=== PATIENT | male | born 1960 | race Caucasian/White ===

== ENCOUNTER → 2020-09-28 15:28 | Outpatient (BNVA) | payer MEDICARE, MEDICAID, SELFPAY | PROVIDERS: PCP Student in an Organized Health Care Education/Training Program; Visit Provider Nurse Practitioner Family | DX: M47.27 Other spondylosis with radiculopathy, lumbosacral region (principal); M54.2 Cervicalgia; M79.18 Myalgia, other site | CPT/HCPCS: 99202 ==

== ENCOUNTER → 2020-10-13 09:44 | Outpatient (BNVA) | payer MEDICARE, MEDICAID, SELFPAY | PROVIDERS: PCP Student in an Organized Health Care Education/Training Program; Visit Provider Nurse Practitioner Family | DX: M47.27 Other spondylosis with radiculopathy, lumbosacral region (principal); M54.2 Cervicalgia; M79.18 Myalgia, other site | CPT/HCPCS: 99212 ==

== ENCOUNTER → 2020-10-27 08:38 | Outpatient (BNVA) | payer MEDICARE, MEDICAID, SELFPAY | PROVIDERS: PCP Student in an Organized Health Care Education/Training Program; Visit Provider Nurse Practitioner Family | DX: M47.27 Other spondylosis with radiculopathy, lumbosacral region (principal); M54.2 Cervicalgia; M79.18 Myalgia, other site | CPT/HCPCS: 99212 ==

== ENCOUNTER → 2020-11-10 14:49 | Outpatient (BNVA) | payer MEDICARE, MEDICAID, SELFPAY | PROVIDERS: PCP Student in an Organized Health Care Education/Training Program; Visit Provider Nurse Practitioner Family | DX: M47.27 Other spondylosis with radiculopathy, lumbosacral region (principal); M54.2 Cervicalgia; M79.18 Myalgia, other site | CPT/HCPCS: 99212 ==

== ENCOUNTER → 2020-12-10 08:58 | Outpatient (BNVA) | payer MEDICARE, MEDICAID, SELFPAY | PROVIDERS: PCP Student in an Organized Health Care Education/Training Program; Visit Provider Nurse Practitioner Family | DX: M47.27 Other spondylosis with radiculopathy, lumbosacral region (principal); M54.2 Cervicalgia; M79.18 Myalgia, other site | CPT/HCPCS: 99212 ==

== ENCOUNTER → 2021-01-07 09:04 | Outpatient (BNVA) | payer MEDICARE, MEDICAID, SELFPAY | PROVIDERS: PCP Student in an Organized Health Care Education/Training Program; Visit Provider Nurse Practitioner Family | DX: M47.27 Other spondylosis with radiculopathy, lumbosacral region (principal); M54.2 Cervicalgia; M79.18 Myalgia, other site | CPT/HCPCS: 99212 ==

== ENCOUNTER → 2021-02-04 08:46 | Outpatient (BNVA) | payer MEDICARE, MEDICAID, SELFPAY | PROVIDERS: PCP Student in an Organized Health Care Education/Training Program; Visit Provider Nurse Practitioner Family | DX: M47.27 Other spondylosis with radiculopathy, lumbosacral region (principal); M54.2 Cervicalgia; M79.18 Myalgia, other site | CPT/HCPCS: 99212 ==

== ENCOUNTER → 2021-03-11 08:18 | Outpatient (BNVA) | payer MEDICARE, MEDICAID, SELFPAY | PROVIDERS: PCP Student in an Organized Health Care Education/Training Program; Visit Provider Nurse Practitioner Family | DX: M47.27 Other spondylosis with radiculopathy, lumbosacral region (principal); M54.2 Cervicalgia; M79.18 Myalgia, other site | CPT/HCPCS: 99212 ==

== ENCOUNTER → 2021-04-15 08:04 | Outpatient (BNVA) | payer MEDICARE, MEDICAID, SELFPAY | PROVIDERS: Visit Provider Nurse Practitioner Family | DX: Z51.81 Encounter for therapeutic drug level monitoring (principal); M47.27 Other spondylosis with radiculopathy, lumbosacral region; M54.2 Cervicalgia; M79.18 Myalgia, other site | CPT/HCPCS: 99212 ==

== ENCOUNTER → 2021-05-13 08:06 | Outpatient (BNVA) | payer MEDICARE, MEDICAID, SELFPAY | PROVIDERS: Visit Provider Nurse Practitioner Family | DX: Z51.81 Encounter for therapeutic drug level monitoring (principal); M54.2 Cervicalgia; M79.18 Myalgia, other site | CPT/HCPCS: 99212 ==

== ENCOUNTER → 2021-06-10 09:09 | Outpatient (BNVA) | payer MEDICARE, MEDICAID, SELFPAY | PROVIDERS: Visit Provider Nurse Practitioner Family | DX: Z51.81 Encounter for therapeutic drug level monitoring (principal); M47.27 Other spondylosis with radiculopathy, lumbosacral region; M54.2 Cervicalgia; M79.18 Myalgia, other site | CPT/HCPCS: 99212 ==

== ENCOUNTER → 2021-07-08 15:40 | Outpatient (BNVA) | payer MEDICARE, MEDICAID, SELFPAY | PROVIDERS: Visit Provider Nurse Practitioner Family | DX: Z51.81 Encounter for therapeutic drug level monitoring (principal); M47.27 Other spondylosis with radiculopathy, lumbosacral region; M54.2 Cervicalgia; M79.18 Myalgia, other site | CPT/HCPCS: 99212 ==

== ENCOUNTER 2021-07-18 09:53 | Outpatient (REF) | payer MEDICARE, MEDICAID, SELFPAY ==
[2021-07-18 10:47] LABS: COVID-19 Test Positive (Negative)
== END 2021-07-18 09:54 | disposition home or self-care (01) ==
LOC: HO.LAB 09:53
PROVIDERS: Visit Provider Internal Medicine
DX: Z20.822 Contact with and (suspected) exposure to COVID-19 (principal)
CPT/HCPCS: 87635; C9803

== ENCOUNTER → 2021-08-05 08:29 | Outpatient (BNVA) | payer MEDICARE, MEDICAID, SELFPAY | PROVIDERS: Visit Provider Nurse Practitioner Family | DX: M47.27 Other spondylosis with radiculopathy, lumbosacral region (principal); M54.2 Cervicalgia; M79.18 Myalgia, other site; Z79.891 Long term (current) use of opiate analgesic | CPT/HCPCS: 99212 ==

== ENCOUNTER → 2021-09-09 08:35 | Outpatient (BNVA) | payer MEDICARE, MEDICAID, SELFPAY | PROVIDERS: PCP Student in an Organized Health Care Education/Training Program; Visit Provider Nurse Practitioner Family | DX: Z51.81 Encounter for therapeutic drug level monitoring (principal); F11.20 Opioid dependence, uncomplicated; M47.27 Other spondylosis with radiculopathy, lumbosacral region; M79.18 Myalgia, other site; M54.2 Cervicalgia | CPT/HCPCS: 99212 ==

== ENCOUNTER → 2021-10-07 09:01 | Outpatient (BNVA) | payer MEDICARE, MEDICAID, SELFPAY | PROVIDERS: PCP Student in an Organized Health Care Education/Training Program; Visit Provider Nurse Practitioner Family | DX: M47.27 Other spondylosis with radiculopathy, lumbosacral region (principal); M54.2 Cervicalgia; M79.18 Myalgia, other site; Z79.899 Other long term (current) drug therapy | CPT/HCPCS: 99212 ==

== ENCOUNTER → 2021-11-11 09:34 | Outpatient (BNVA) | payer MEDICARE, MEDICAID, SELFPAY | PROVIDERS: PCP Student in an Organized Health Care Education/Training Program; Visit Provider Nurse Practitioner Family | DX: Z13.89 Encounter for screening for other disorder (principal) ==

== ENCOUNTER → 2021-12-09 08:32 | Outpatient (BNVA) | payer MEDICARE, MEDICAID, SELFPAY | PROVIDERS: PCP Student in an Organized Health Care Education/Training Program; Visit Provider Nurse Practitioner Family | DX: M47.27 Other spondylosis with radiculopathy, lumbosacral region (principal); M54.2 Cervicalgia; M79.18 Myalgia, other site; Z79.891 Long term (current) use of opiate analgesic | CPT/HCPCS: 99212 ==

== ENCOUNTER → 2022-01-13 09:30 | Outpatient (BNVA) | payer MEDICARE, MEDICAID, SELFPAY | PROVIDERS: PCP Student in an Organized Health Care Education/Training Program; Visit Provider Nurse Practitioner Family | DX: M47.27 Other spondylosis with radiculopathy, lumbosacral region (principal); M54.2 Cervicalgia; M79.18 Myalgia, other site; M79.642 Pain in left hand; Z79.891 Long term (current) use of opiate analgesic | CPT/HCPCS: 99212 ==

== ENCOUNTER → 2022-02-13 08:33 | Outpatient (BNVA) | payer MEDICARE, MEDICAID, SELFPAY | PROVIDERS: PCP Student in an Organized Health Care Education/Training Program; Visit Provider Nurse Practitioner Family | DX: Z79.899 Other long term (current) drug therapy (principal); Z79.891 Long term (current) use of opiate analgesic | CPT/HCPCS: 99211 ==

== ENCOUNTER → 2022-03-14 10:06 | Outpatient (BNVA) | payer MEDICARE, MEDICAID, SELFPAY | PROVIDERS: PCP Student in an Organized Health Care Education/Training Program; Visit Provider Nurse Practitioner Family | DX: M47.27 Other spondylosis with radiculopathy, lumbosacral region (principal); M54.2 Cervicalgia; M79.18 Myalgia, other site; Z79.891 Long term (current) use of opiate analgesic | CPT/HCPCS: 99212 ==

== ENCOUNTER → 2022-04-11 08:29 | Outpatient (BNVA) | payer MEDICARE, MEDICAID, SELFPAY | PROVIDERS: PCP Student in an Organized Health Care Education/Training Program; Visit Provider Nurse Practitioner Family | DX: F11.20 Opioid dependence, uncomplicated (principal) | CPT/HCPCS: 99211 ==

== ENCOUNTER → 2022-05-15 08:24 | Outpatient (BNVA) | payer MEDICARE, MEDICAID, SELFPAY | PROVIDERS: PCP Student in an Organized Health Care Education/Training Program; Visit Provider Nurse Practitioner Family | DX: Z51.81 Encounter for therapeutic drug level monitoring (principal); F11.20 Opioid dependence, uncomplicated; M47.27 Other spondylosis with radiculopathy, lumbosacral region; M54.2 Cervicalgia; M25.562 Pain in left knee; M79.642 Pain in left hand; M79.18 Myalgia, other site | CPT/HCPCS: 99212 ==

== ENCOUNTER → 2022-06-12 09:06 | Outpatient (BNVA) | payer MEDICARE, MEDICAID, SELFPAY | PROVIDERS: PCP Student in an Organized Health Care Education/Training Program; Visit Provider Nurse Practitioner Family | DX: Z79.891 Long term (current) use of opiate analgesic (principal) | CPT/HCPCS: 99211 ==

== ENCOUNTER → 2022-07-18 09:00 | Outpatient (BNVA) | payer MEDICARE, MEDICAID, SELFPAY | PROVIDERS: PCP Student in an Organized Health Care Education/Training Program; Visit Provider Nurse Practitioner Family | DX: M25.562 Pain in left knee (principal); M47.27 Other spondylosis with radiculopathy, lumbosacral region; M54.2 Cervicalgia; Z79.891 Long term (current) use of opiate analgesic | CPT/HCPCS: 99212 ==

== ENCOUNTER → 2022-08-15 09:32 | Outpatient (BNVA) | payer MEDICARE, MEDICAID, SELFPAY | PROVIDERS: PCP Student in an Organized Health Care Education/Training Program; Visit Provider Nurse Practitioner Family | DX: Z51.81 Encounter for therapeutic drug level monitoring (principal); M54.2 Cervicalgia; M79.18 Myalgia, other site; Z79.891 Long term (current) use of opiate analgesic | CPT/HCPCS: 99212 ==

== ENCOUNTER → 2022-09-12 09:25 | Outpatient (BNVA) | payer MEDICARE, MEDICAID, SELFPAY | PROVIDERS: PCP Student in an Organized Health Care Education/Training Program; Visit Provider Nurse Practitioner Family | DX: M47.816 Spondylosis without myelopathy or radiculopathy, lumbar region (principal); M79.18 Myalgia, other site; M54.2 Cervicalgia; Z79.891 Long term (current) use of opiate analgesic | CPT/HCPCS: 99212 ==

== ENCOUNTER → 2022-10-10 08:53 | Outpatient (BNVA) | payer MEDICARE, MEDICAID, SELFPAY | PROVIDERS: PCP Student in an Organized Health Care Education/Training Program; Visit Provider Nurse Practitioner Family | DX: Z51.81 Encounter for therapeutic drug level monitoring (principal); M54.2 Cervicalgia; M79.18 Myalgia, other site; M47.816 Spondylosis without myelopathy or radiculopathy, lumbar region; Z79.891 Long term (current) use of opiate analgesic | CPT/HCPCS: 99212 ==

== ENCOUNTER → 2022-11-07 09:15 | Outpatient (BNVA) | payer MEDICARE, MEDICAID, SELFPAY | PROVIDERS: PCP Student in an Organized Health Care Education/Training Program; Visit Provider Nurse Practitioner Family | DX: M47.816 Spondylosis without myelopathy or radiculopathy, lumbar region (principal); M54.2 Cervicalgia; M79.18 Myalgia, other site; Z79.891 Long term (current) use of opiate analgesic | CPT/HCPCS: 99212 ==

== ENCOUNTER → 2022-12-12 09:03 | Outpatient (BNVA) | payer MEDICARE, MEDICAID, SELFPAY | PROVIDERS: PCP Internal Medicine; Visit Provider Nurse Practitioner Family | DX: Z51.81 Encounter for therapeutic drug level monitoring (principal); G47.00 Insomnia, unspecified; M51.36 Other intervertebral disc degeneration, lumbar region; M47.816 Spondylosis without myelopathy or radiculopathy, lumbar region; F41.8 Other specified anxiety disorders; Z79.891 Long term (current) use of opiate analgesic | CPT/HCPCS: 99212 ==

== ENCOUNTER 2022-12-27 11:00 | Emergency (ER) | payer MEDICARE, MEDICAID, SELFPAY ==
--- NOTE | ~2022-12-27 | XR_ITS ---
EXAMINATION: XR ANKLE LEFT XR FOOT LEFT CLINICAL INFORMATION: Pain and swelling after fall. COMPARISON: None TECHNIQUE: Left ankle, 2 views (AP and oblique views) Left foot, 3 views FINDINGS: Left ankle: Acute, oblique fracture of the distal fibular metaphysis with approximately 0.3 cm lateral displacement of the distal fibular fragment and overlying soft tissue swelling. The talus is well-positioned within the mortise. The tibiotalar joint space is maintained. The medial and posterior malleoli are intact. Left foot: Bones have normal alignment throughout the foot and joint spaces are maintained. No fractures within the foot. There are enthesophytes at the posterior and plantar surfaces of the calcaneus. XR/XR foot LT min 3V IMPRESSION: Acute, mildly displaced fracture (Prado B injury) of the distal fibula with overlying soft tissue swelling.
--- NOTE | ~2022-12-27 | XR_ITS ---
EXAMINATION: XR ANKLE LEFT XR FOOT LEFT CLINICAL INFORMATION: Pain and swelling after fall. COMPARISON: None TECHNIQUE: Left ankle, 2 views (AP and oblique views) Left foot, 3 views FINDINGS: Left ankle: Acute, oblique fracture of the distal fibular metaphysis with approximately 0.3 cm lateral displacement of the distal fibular fragment and overlying soft tissue swelling. The talus is well-positioned within the mortise. The tibiotalar joint space is maintained. The medial and posterior malleoli are intact. Left foot: Bones have normal alignment throughout the foot and joint spaces are maintained. No fractures within the foot. There are enthesophytes at the posterior and plantar surfaces of the calcaneus. XR/XR ankle LT min 3V IMPRESSION: Acute, mildly displaced fracture (Prado B injury) of the distal fibula with overlying soft tissue swelling.
[2022-12-27 11:09] VITALS: BP 151/84; PULSE 85; RESP 16; TEMP 36.4; O2SAT 97; BMI 30.6
--- NOTE | 2022-12-27 11:11 | ED_ITS ---
HPI - Extremity Injury (Lower) General Chief Complaint: Extremity Injury, Lower Stated Complaint: left leg broken? Time Seen by Provider: 12/27/22 11:26 Related Data Home Medications Medication Instructions Recorded Confirmed loratadine 10 mg tablet 10 mg PO DAILY 09/28/20 10/10/22 tizanidine 4 mg tablet 4 mg PO Q6-8H PRN muscle spasm 09/28/20 10/10/22 trazodone 50 mg tablet 50 mg PO BEDTIME 01/07/21 10/10/22 fluticasone propionate 50 spray intranasal 02/13/22 10/10/22 mcg/actuation nasal spray,suspension alfuzosin 10 mg tablet,extended 10 mg PO DAILY 04/11/22 10/10/22 release 24 hr finasteride 5 mg tablet 5 mg PO BEDTIME 04/11/22 10/10/22 amlodipine 2.5 mg tablet 2.5 mg PO DAILY 11/07/22 doxycycline hyclate 100 mg tablet 100 mg PO BID 11/07/22 sertraline 50 mg tablet 50 mg PO DAILY 11/07/22 Previous Rx's Medication Instructions Recorded naloxone 4 mg/actuation nasal 4 mg intranasal Q3M PRN opioid 10/07/21 spray (Narcan) overdose #2 ea celecoxib 100 mg capsule 100 mg PO BID PRN for pain 30 days 09/25/22 #60 caps oxycodone 5 mg tablet 5 mg PO TID PRN pain, severe 30 12/12/22 days #90 tabs oxycodone 5 mg tablet 5 mg PO BID PRN pain #8 tabs 12/27/22 Allergies Allergy/AdvReac Type Severity Reaction Status Date / Time No Known Allergies Allergy Verified 12/12/22 09:24 [facility] Past Medical History Medical History (Updated 12/27/22 @ 11:31 by EMILI Andres) Bilateral knee pain Cervical spondylosis Chronic right hip pain Degeneration of intervertebral disc of lumbar region Depression with anxiety Insomnia Lumbar spinal stenosis Seasonal allergies Surgical History (Updated 12/12/22 @ 09:32 by SARA Whittington) H/O colonoscopy H/O right inguinal hernia repair Social History Social History Advance Directives: No Physical Exam Vital Signs: Vital Signs: Last Vital Signs Temp 97.5 F 12/27/22 11:09 Pulse 85 12/27/22 11:09 Resp 16 12/27/22 11:09 BP 151/84 H 12/27/22 11:09 Pulse Ox 97 12/27/22 11:09 O2 Del Method Room Air 12/27/22 11:09 BMI result Body Mass Index 30.6 Course Course Course Narrative: RME: 62yo M w/PMHx depression, insomnia, c/o L ankle pain and swelling s/p dog running into him 30mins [employer] and knocking him over. denies head trauma or LOC +L rosina w/lateral mall swelling and ttp. NV intact X-rays ordered Full HPI, ROS and PE to be performed by primary ED provider. Discharge Plan Discharge Clinical Impression: Fibula fracture Patient Disposition: Home, Self-Care Instructions: Leg Fracture (ED), Crutch Instructions (ED), R.I.C.E. Treatment (ED), ORIF (DC) Additional Instructions: Take your medications as prescribed. If you were prescribed antibiotics today, it is important that you take your medication to their entirety, do not skip any doses, do not finish them early. Follow-up with your primary care provider this week. Return to the emergency department with new or worsening symptoms. Such as fevers, chills, chest pain, shortness of breath, nausea, vomiting, dizziness, headache, vision changes, lethargy In case of emergency call 911 A narcotic has been sent to your pharmacy please take this as prescribed. Do not take more than the prescribed dose. Narcotic medications can cause addiction. Please do not mix them with alcohol. Do not take them while driving or operating machinery. Do not take them with any other narcotics. Do not share them with friends or family. They can cause constipation. Take them only for severe pain. Prescriptions: New oxycodone 5 mg tablet 5 mg PO BID PRN (Reason: pain) Qty: 8 0RF Rx Instructions: Partial Fill upon patient request. No Action celecoxib 100 mg capsule 100 mg PO BID PRN (Reason: for pain) 30 Days Qty: 60 0RF loratadine 10 mg tablet 10 mg PO DAILY tizanidine 4 mg tablet 4 mg PO Q6-8H PRN (Reason: muscle spasm) trazodone 50 mg tablet 50 mg PO BEDTIME naloxone [Narcan] 4 mg/actuation spray,non-aerosol 4 mg intranasal Q3M PRN (Reason: opioid overdose) Qty: 2 0RF Rx Instructions: spray 1 dose into ONE nostril; alternate nostrils w each dose until help arrives fluticasone propionate 50 mcg/actuation spray,suspension intranasal finasteride 5 mg tablet 5 mg PO BEDTIME alfuzosin 10 mg tablet extended release 24 hr 10 mg PO DAILY doxycycline hyclate 100 mg tablet 100 mg PO BID amlodipine 2.5 mg tablet 2.5 mg PO DAILY sertraline 50 mg tablet 50 mg PO DAILY oxycodone 5 mg tablet 5 mg PO TID PRN (Reason: pain, severe) 30 Days Qty: 90 0RF Rx Instructions: Partial Fill upon patient request. Referrals: [facility] [place] Orth[facility] Surgeons [Provider Group] - 3 days Rhea Christy MD [Primary Care Provider] - 2 days
--- NOTE | 2022-12-27 11:31 | ED.LOWEXIN ---
HPI - Extremity Injury (Lower) General Chief Complaint: Extremity Injury, Lower Stated Complaint: left leg broken? Time Seen by Provider: 12/27/22 11:26 Source: patient Mode of arrival: ambulatory Limitations: no limitations History of Present Illness HPI Narrative: 62-year-old male presents with lateral left ankle pain that happened just prior to arrival, patient reports his dog got the zoomies and head butted him right in the ankle this caused him to fall, when patient fell he did not hit his head or lose consciousness. Patient not on blood thinners. He reports that his left ankle pain is worse with movement better at rest. He reports the area immediately became swollen. He reports when the dog head-butted him he heard a crack. He is concerned he may be fractured. No previous issues of left ankle. Denies numbness, tingling, fevers, chills, chest pain, shortness breath, nausea, vomiting, headache, vision changes, dizziness and weakness. Related Data Home Medications Medication Instructions Recorded Confirmed loratadine 10 mg tablet 10 mg PO DAILY 09/28/20 10/10/22 tizanidine 4 mg tablet 4 mg PO Q6-8H PRN muscle spasm 09/28/20 10/10/22 trazodone 50 mg tablet 50 mg PO BEDTIME 01/07/21 10/10/22 fluticasone propionate 50 spray intranasal 02/13/22 10/10/22 mcg/actuation nasal spray,suspension alfuzosin 10 mg tablet,extended 10 mg PO DAILY 04/11/22 10/10/22 release 24 hr finasteride 5 mg tablet 5 mg PO BEDTIME 04/11/22 10/10/22 amlodipine 2.5 mg tablet 2.5 mg PO DAILY 11/07/22 doxycycline hyclate 100 mg tablet 100 mg PO BID 11/07/22 sertraline 50 mg tablet 50 mg PO DAILY 11/07/22 Previous Rx's Medication Instructions Recorded naloxone 4 mg/actuation nasal 4 mg intranasal Q3M PRN opioid 10/07/21 spray (Narcan) overdose #2 ea celecoxib 100 mg capsule 100 mg PO BID PRN for pain 30 days 09/25/22 #60 caps oxycodone 5 mg tablet 5 mg PO TID PRN pain, severe 30 12/12/22 days #90 tabs oxycodone 5 mg tablet 5 mg PO BID PRN pain #8 tabs 12/27/22 Allergies Allergy/AdvReac Type Severity Reaction Status Date / Time No Known Allergies Allergy Verified 12/12/22 09:24 Review of Systems Review of Systems: Constitutional : No Weight loss, No Fever, No Chills, No Fatigue, No Malaise ENT/Mouth : No sore throat, No Rhinorrhea Eyes: No Eye Pain, No Swelling, No Redness Cardiovascular : No Chest Pain, No SOB, No Dyspnea on Exertion, No Orthopnea, No Edema, No Palpitations Respiratory : No Cough, No Sputum, No Wheezing Gastrointestinal : No Nausea, No Vomiting, No Diarrhea, No Constipation, No abdominal Pain, No Hematochezia, No Melena Genitourinary : No Dysuria, No Urinary Frequency, No Hematuria, Musculoskeletal : + joint pain, No Myalgias, + Joint Swelling Skin : No Skin Lesions, No rash Neuro : No Weakness, No Numbness, No Dizziness, No Headache Psych : No Anxiety/Panic, No Depression All other systems reviewed and are negative Yes all other systems are reviewed and are negative [facility] Past Medical History Attestation statement: The following information was validated with the patient. Source: old records reviewed and nursing notes reviewed Medical History (Updated 12/27/22 @ 11:31 by EMILI Andres) Bilateral knee pain Cervical spondylosis Chronic right hip pain Degeneration of intervertebral disc of lumbar region Depression with anxiety Insomnia Lumbar spinal stenosis Seasonal allergies Surgical History (Updated 12/12/22 @ 09:32 by SARA Whittington) H/O colonoscopy H/O right inguinal hernia repair Social History Social History Advance Directives: No Physical Exam Vital Signs: Vital Signs: Last Vital Signs Temp 97.5 F 12/27/22 11:09 Pulse 85 12/27/22 11:09 Resp 16 12/27/22 11:09 BP 151/84 H 12/27/22 11:09 Pulse Ox 97 12/27/22 11:09 O2 Del Method Room Air 12/27/22 11:09 BMI result Body Mass Index 30.6 vss Appearance: Alert.? Oriented X3.? No acute distress.? Head: Normocephalic, atraumatic, no step-offs or deformities Eyes: Pupils equal, round and reactive to light.? Neck: Normal inspection.? Neck supple.? CVS: Normal heart rate and rhythm.? Pulses normal.? Respiratory: No respiratory distress.? Breath sounds normal.? Abdomen: Soft and nontender.? Skin: Skin warm and dry.? Normal skin color.? Normal skin turgor.? Extremities: No lower extremity edema.? No calf ttp. 5/5 strength to bilateral upper and lower extremities + Pain with ROM to L ankle and TTP overlying lateral Malleolus With significant edema over the left lateral malleolus. 2+ dorsalis pedis, anterior tibialis, posterior tibialis pulses equal bilateral. No footdrop. Pain with weight-bearing on the left lower extremity. Normal right lower extremity. Normal sensation to bilateral lower extremities distally. Normal capillary refill less than 2 seconds to bilateral lower extremity toes. Patient with full range of motion to bilateral ankles however painful with range of motion of left ankle Neuro: Oriented X 3.? No motor deficit.? No sensory deficit. CN 2-12 intact . Normal [id number], [id number], steady tandem gait normal coordination. Negative Romberg and pronator drift. Course Reevaluation(s) Reevaluation #1: X-ray of left foot with acute mildly displaced fracture of the distal fibula with overlying soft tissue swelling patient placed in a posterior short-leg and a stirrup splint, oxycodone for pain. I did receive a call from the pharmacy stating patient gets oxycodone 3 times a day already, cancels prescription at this time. Patient was given oxycodone here for pain however. Using crutches well. Status post splint patient's neurovascular status intact. I did educate him on compartment syndrome and when to return gave him orthopedic follow-up told him to call today to schedule appointment. Educated patient on diagnosis and treatment plan, answered all question, patient verbalizes understanding. At this time patient will be discharged home, advised to return with new or worsening symptoms. Educated on worrisome signs and symptoms and when to return. At this time I feel comfortable discharge home. Time: 12:37 Medications Administered Discontinued Medications Generic Name Dose Route Start Last Admin Trade Name Freq PRN Reason Stop Dose Admin Oxycodone HCl 5 mg 12/27/22 11:38 12/27/22 12:27 Oxycodone Hcl Immed Release 5 Mg Tablet PO 12/27/22 11:39 5 mg ONCE ONE Administration Medical Decision Making Medical Decision Making [facility] Narrative: 1133 62-year-old male presents with left ankle pain and swelling status post fall, no head strike happened prior to arrival physical exam significant for 5/5 strength to bilateral upper and lower extremities + Pain with ROM to L ankle and TTP overlying lateral Malleolus. 2+ dorsalis pedis, anterior tibialis, posterior tibialis pulses equal bilateral. No footdrop. Pain with weight-bearing on the left lower extremity. Normal right lower extremity. Normal sensation to bilateral lower extremities distally. Normal capillary refill less than 2 seconds to bilateral lower extremity toes. Patient with full range of motion to bilateral ankles however painful with range of motion of left ankle concerns for fracture, dislocation. No signs of neurovascular compromise, threatened limb. No signs of compartment syndrome. No signs of open fracture plan at this time x-ray Differential Diagnosis Differential Diagnoses: The differential diagnosis associated with the presentation includes concerns for fracture, dislocation. No signs of neurovascular compromise, threatened limb. No signs of compartment syndrome. No signs of open fracture Admission/Observation Consideration of admission/observation: Escalation of care including admission/observation considered unlikely Independent Interpretation I performed an independent interpretation of an: Plain X-Ray Radiology Impression Discussion of test interpretation with radiology: I have reviewed the radiologist's reading. Core Measures Measure exclusions: not indicated Critical Care Time Critical Care Time Critical Care Time: No Discharge Plan Discharge Clinical Impression: Fibula fracture Patient Disposition: Home, Self-Care Instructions: Leg Fracture (ED), Crutch Instructions (ED), R.I.C.E. Treatment (ED), ORIF (DC) Additional Instructions: Take your medications as prescribed. If you were prescribed antibiotics today, it is important that you take your medication to their entirety, do not skip any doses, do not finish them early. Follow-up with your primary care provider this week. Call ortho today to schedule an apt Return to the emergency department with new or worsening symptoms. Such as fevers, chills, chest pain, shortness of breath, nausea, vomiting, dizziness, headache, vision changes, lethargy In case of emergency call 911 A narcotic has been sent to your pharmacy please take this as prescribed. Do not take more than the prescribed dose. Narcotic medications can cause addiction. Please do not mix them with alcohol. Do not take them while driving or operating machinery. Do not take them with any other narcotics. Do not share them with friends or family. They can cause constipation. Take them only for severe pain. FINDINGS: Left ankle: Acute, oblique fracture of the distal fibular metaphysis with approximately 0.3 cm lateral displacement of the distal fibular fragment and overlying soft tissue swelling. The talus is well-positioned within the mortise. The tibiotalar joint space is maintained. The medial and posterior malleoli are intact. Left foot: Bones have normal alignment throughout the foot and joint spaces are maintained. No fractures within the foot. There are enthesophytes at the posterior and plantar surfaces of the calcaneus. XR/XR ankle LT min 3V IMPRESSION: Acute, mildly displaced fracture (Prado B injury) of the distal fibula with overlying soft tissue swelling.? Prescriptions: New oxycodone 5 mg tablet 5 mg PO BID PRN (Reason: pain) Qty: 8 0RF Rx Instructions: Partial Fill upon patient request. No Action celecoxib 100 mg capsule 100 mg PO BID PRN (Reason: for pain) 30 Days Qty: 60 0RF loratadine 10 mg tablet 10 mg PO DAILY tizanidine 4 mg tablet 4 mg PO Q6-8H PRN (Reason: muscle spasm) trazodone 50 mg tablet 50 mg PO BEDTIME naloxone [Narcan] 4 mg/actuation spray,non-aerosol 4 mg intranasal Q3M PRN (Reason: opioid overdose) Qty: 2 0RF Rx Instructions: spray 1 dose into ONE nostril; alternate nostrils w each dose until help arrives fluticasone propionate 50 mcg/actuation spray,suspension intranasal finasteride 5 mg tablet 5 mg PO BEDTIME alfuzosin 10 mg tablet extended release 24 hr 10 mg PO DAILY doxycycline hyclate 100 mg tablet 100 mg PO BID amlodipine 2.5 mg tablet 2.5 mg PO DAILY sertraline 50 mg tablet 50 mg PO DAILY oxycodone 5 mg tablet 5 mg PO TID PRN (Reason: pain, severe) 30 Days Qty: 90 0RF Rx Instructions: Partial Fill upon patient request. Referrals: [facility] [place] [facility] [Provider Group] - 3 days Rhea Christy MD [Primary Care Provider] - 2 days Stand Alone Forms: Work/School Release
[2022-12-27] MEDS: oxyCODONE HCl Immed Release 5 MG TABLET PO (12:27)
== END 2022-12-27 12:42 | disposition home or self-care (01) ==
PROVIDERS: Emergency Provider Emergency Medicine; PCP Internal Medicine
DX: S82.62XA Displaced fracture of lateral malleolus of left fibula, initial encounter for closed fracture (principal); W01.0XXA Fall on same level from slipping, tripping and stumbling without subsequent striking against object, initial encounter; Y93.89 Activity, other specified; Y92.9 Unspecified place or not applicable; Y99.9 Unspecified external cause status; Z79.899 Other long term (current) drug therapy
CPT/HCPCS: 73610; 73630; 99283; 99284

== ENCOUNTER 2023-01-09 09:05 | Outpatient (AMB) | payer MEDICARE, MEDICAID, SELFPAY ==
--- NOTE | 2023-01-09 09:05 | MHC.OFFVIS ---
Intake Vital Signs 01/09/23 09:15 Height 6 ft 3 in Weight 245 lb BMI 30.6 BP 144/101 H Blood Pressure Location Lt brachial Position Sitting Pulse 99 Pulse Source Pulse Oximeter Pulse Oximetry (%) 97 Oxygen Delivery Method Room Air Intake Visit Reasons: Pill count Intake Note: Darin comes in today for a pill count to oxycodone, patient should have 54 tablets and presents with 49 tablets which he last took this morning 01/09/23 at 7am. Unfortunately he is 5 tablets short which will result in a 6 month suspension from the opioid program. Pain today 03/11. 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 Patient is supposed to have #54 pills in his possession and has #49. Unfortunately, this demonstrates an irresponsible attitude towards his medication regimen. He is prescribed oxycodone 5 mg BID prn and therefore is short 2 days. Patient reports inadequate analgesia with no noted side effects due to recent left ankle fracture on 12/27/22. Unfortunately, he did not notify our office with this and has been taking more medication than daily prescribed to control his symptoms. He did declined script from ER for additional oxycodone. Denies any fever, chills, constipation, sedation, nausea, dizziness or urinary retention. We reviewed his opioid contract today again and copy of opioid contract was provided to patient at last visit. I will send in a compassionate prescription and extend it up to 4 weeks. [facility] [place]: 62-year-old male presents with lateral left ankle pain that happened just prior to arrival, patient reports his dog got the zoomies and head butted him right in the ankle this caused him to fall, when patient fell he did not hit his head or lose consciousness. Patient not on blood thinners. He reports that his left ankle pain is worse with movement better at rest. He reports the area immediately became swollen. He reports when the dog head-butted him he heard a crack. He is concerned he may be fractured. No previous issues of left ankle. Denies numbness, tingling, fevers, chills, chest pain, shortness breath, nausea, vomiting, headache, vision changes, dizziness and weakness. Patient has been using crutches since his injury and was placed in a posterior short-leg and a stirrup splint in ER. He has initial evaluation by our Orthopedic providers this afternoon. [facility] Medical History Bilateral knee pain Cervical spondylosis Chronic right hip pain Degeneration of intervertebral disc of lumbar region Depression with anxiety Insomnia Lumbar spinal stenosis Seasonal allergies Surgical History H/O colonoscopy H/O right inguinal hernia repair Social History (Updated 01/09/23 @ 09:53 by Dhruv Garner) Alcohol intake: former Patient Tobacco Use Status: Never used Tobacco Current occupational status: retired Review of Systems Const All systems reviewed & are unremarkable except as noted in HPI and below Physical Exam Vital Signs: Last Vital Signs Pulse 99 01/09/23 09:15 BP 144/101 H 01/09/23 09:15 Pulse Ox 97 01/09/23 09:15 Oxygen Delivery Method Room Air 01/09/23 09:15 BMI result Body Mass Index 30.6 On exam today: Appears afebrile. Alert and oriented. Mood and affect appropriate. Follows and participates in conversation appropriately. Respiratory effort is unlabored. No cough. Able to transition from sit to stand unassisted. Ambulates with bilaterally normal heel strike and toe off. Able to stand and walk on toes and heels. Extrem General: Yes capillary refill normal Left lower extremity: ankle (Posterior short-leg and a stirrup splint) Details: tenderness (left ankle and foot), swelling (LLE r/t recent left displaced fracture of the distal fibula ), pitting edema and ecchymosis; no warmth Psych Appearance: grossly normal and well kempt Mental Status: mental status grossly normal Speech and movement: Normal speech and movement present and Clear speech present Affect: normal affect Attitude: cooperative Thought process: Normal thought process present Thought content: Normal thought content present, suicidality (none), no hallucinations and No Depressive thoughts present Insight: Good insight present (Psych) Judgement: Good judgement present (Psych) Results Reviewed Results Reviewed: XR ANKLE LEFT XR FOOT LEFT 12/27/22 CLINICAL INFORMATION: Pain and swelling after fall. FINDINGS: Left ankle: Acute, oblique fracture of the distal fibular metaphysis with approximately 0.3 cm lateral displacement of the distal fibular fragment and overlying soft tissue swelling. The talus is well-positioned within the mortise. The tibiotalar joint space is maintained. The medial and posterior malleoli are intact. Left foot: Bones have normal alignment throughout the foot and joint spaces are maintained. No fractures within the foot. There are enthesophytes at the posterior and plantar surfaces of the calcaneus. IMPRESSION: Acute, mildly displaced fracture (Prado B injury) of the distal fibula with overlying soft tissue swelling. 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 Given his risk is MILD, he will be suspended from the opioid program for 6 months. Patient is aware that he will not be eligible for medical management through this office for this period but he can receive interventional treatments for his pain generators. Patient has expressed frustration and understanding with the guidelines and opioid contract but unfortunately his pill count was short for 2 days. I will send in a compassionate oxycodone prescription and extend this for 4 weeks in which he will need to taper himself off and follow up with his PCP to take over opioid prescribing for 5 months. Follow up with the Orthopedic office for potential surgical option for recent left ankle injury. Patient will follow up with us in 6 months to re-enter our opioid program and sooner if needed. Orders: Referrals Psychology Referral F41.8 - Other specified anxiety disorders, G47.00 - Insomnia, unspecified, G89.4 - Chronic pain syndrome Medications: Changed From oxycodone Partial Fill upon patient request. 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 Discontinued Reason: Duplicate 5 mg PO BID PRN 8 tabs 0RF pain Coding Level of Care Code Est Pt Level 4 (90815) Diagnoses Insomnia G47.00 Degeneration of intervertebral disc of lumbar region M51.36 Opioid contract exists Z79.891 Lumbar spondylosis M47.816 Depression with anxiety F41.8 Chronic pain syndrome G89.4 Closed fracture of left distal fibula S82.307H
[2023-01-09 09:15] VITALS: BP 144/101; PULSE 99; O2SAT 97; BMI 30.6
== END 2023-01-09 09:36 | disposition home or self-care (01) ==
PROVIDERS: PCP Internal Medicine; Visit Provider Nurse Practitioner Family
DX: M51.36 Other intervertebral disc degeneration, lumbar region (principal); Z79.891 Long term (current) use of opiate analgesic; M47.816 Spondylosis without myelopathy or radiculopathy, lumbar region; G47.00 Insomnia, unspecified; G89.4 Chronic pain syndrome; F41.8 Other specified anxiety disorders; S82.832A Other fracture of upper and lower end of left fibula, initial encounter for closed fracture
CPT/HCPCS: 99214

== ENCOUNTER 2023-01-09 09:37 | Outpatient (AMB) | payer MEDICARE, MEDICAID, SELFPAY ==
--- NOTE | 2023-01-09 09:38 | A.OFFVIS_ITS ---
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 Patient reports his dog head budded his left ankle, and he heard a crack. He states that his ankle is better when its resting and iced. Having numbness and tingling on the bottom of his foot and on his toes. 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 The patient presented to the ED on 12/27/2022 status post being hit by his dog in the ankle causing him to fall. X- rays of the left ankle were obtained. He was placed in a posterior short-leg stirrup splint. He reports his pain is better when resting and icing. He confirms numbness and tingling on the bottom of his left foot and toes. Patient confirms chronic pain and lumbar back pain. He denies diabetes mellitus, heart or lung conditions. [facility] Medical History Bilateral knee pain Cervical spondylosis Chronic right hip pain Degeneration of intervertebral disc of lumbar region Depression with anxiety Insomnia Lumbar spinal stenosis Seasonal allergies Surgical History H/O colonoscopy H/O right inguinal hernia repair Social History (Updated 01/09/23 @ 09:53 by Dhruv Garner) Alcohol intake: former Patient Tobacco Use Status: Never used Tobacco Current occupational status: retired Review of Systems Const All systems reviewed & are unremarkable except as noted in HPI and below Physical Exam Const General: cooperative, healthy appearing, comfortable, no acute distress, well developed and alert Orientation/consciousness: patient oriented x3 HEENT Head: Yes normal to inspection, Yes normocephalic and Yes atraumatic Eyes General: appearance normal, both eyes and all related structures Resp Effort & Inspection: normal respiratory effort and able to speak in complete sentences Cardio Rate: regular rate Peripheral pulses: Peripheral pulses 2+ throughout GI Palpation (GI): Soft to palpation Skin Lesions: no lesions Rashes: no rashes Neuro General: patient oriented x3 Extrem Other: Left ankle: Significant circumferential edema extending to the dorsal aspect of the left foot. Resolving ecchymosis scattered through out the foot and ankle extending to the left knee. Negative tibia/fibia squeeze test. Significant tenderness to palpation along the lateral and medical malleolus. Able to slightly dorsiflex and plantarflex. Sensation intact. Pedal pulse intact. Office Procedures Casting/Splints 71431-[id number] Leg splint application Procedure code (CPT) selection complete Fracture Care Fracture Billing Code: Fracture Billing Code Assessment & Plan Assessment & Plan (1) Closed fracture of left distal fibula: Code(s): S82.832A - Other fracture of upper and lower end of left fibula, initial encounter for closed fracture Plan Mr. Montalvo is a 62-year-old male who presents in the office today, as a new patient, for an evaluation of left ankle pain. The patient presented to the ED on 12/27/2022 status post being hit by his dog in the ankle causing him to fall. X-rays of the left ankle were obtained. He was placed in a posterior short-leg stirrup splint. He reports his pain is better when resting and icing. He confirms numbness and tingling on the bottom of his left foot and toes. Patient confirms chronic pain and lumbar back pain. He denies diabetes mellitus, heart or lung conditions. I discussed in detail that recommendation from an orthopedic standpoint is left ankle ORIF I discussed the procedure and what to expect pre and post operatively. We discussed the risks, benefits and alternatives to the surgery as well as the rehabilitation course. The risks; which include, but are not limited to infection, bleeding, nerve injury, ongoing pain, swelling, and stiffness, perioperative risk of injury to bones and soft tissues, and blood clots. I discussed the role of conservative treatments verses surgical intervention. At this time the patient would like to avoid surgical intervention as long as possible. He states he is seeing his PCP tomorrow and will call the office should he decide to move forward. He was placed back into the splint. He is to remain non-weight bearing. I educated him that he needs to elevated the ankle as much as possible above the level of his heart. Follow up will be in 1 week with me with repeat x-rays and Dr. Zuniga in the office to revisit surgical intervention verses casting depending on edema, or sooner if needed. X-rays of the left ankle which were obtained while in the office today and were reviewed by me, Akua Burrell PA-C, redemonstrated a mildly displaced distal fibula fracture. X-rays of the left ankle, obtained on , revealed: Acute, mildly displaced fracture (Prado B injury) of the distal fibula with overlying soft tissue swelling. Orders: Orders XR ankle LT min 3V Today M25.579 - Pain in unspecified ankle and joints of unspecified foot XR tibia fibula LT 2V Today S82.892A - Other fracture of left lower leg, initial encounter for closed fracture Patient Instructions: Scribed for Akua Burrell PA-C by Dana Celestin medical policy specialist, on 01/09/2023 at 10:00 am, EST. Your attestation Coding Level of Care Code New Pt Level 4 (74369) Diagnoses Closed fracture of left distal fibula S82.832A CPT Codes Splint - CPT: 24457-Nwesb Leg splint application ([id number]) Fracture Care - Fracture Billing Code: Fracture Billing Code ([id number])
== END 2023-01-09 10:37 | disposition home or self-care (01) ==
PROVIDERS: PCP Internal Medicine; Visit Provider Physician Assistant
DX: S82.832A Other fracture of upper and lower end of left fibula, initial encounter for closed fracture (principal)
CPT/HCPCS: 27786; 99204

== ENCOUNTER 2023-01-09 09:52 | Outpatient (REF) | payer MEDICARE, MEDICAID, SELFPAY ==
--- NOTE | ~2023-01-09 | XR_ITS ---
Examination: XR tibia fibula LT 2V, XR ankle LT min 3V Indication: S82.892A - Other fracture of left lower leg, initial encounter for close... Comparison: 12/27/2022 Technique: 3 views the left ankle with 2 additional views of the left tibia and fibula Findings: Obliquely oriented distal fibular fracture is again seen extending to the level of the ankle mortise but there is no abnormal widening to the ankle mortise. Fracture lines are still apparent and discrete with minimal residual step-off compared to the prior examination. No significant angulation. Medial and posterior malleolus appear intact. Prominent calcaneal heel spur at the attachment point of the plantar aponeurosis. More proximal tibia and fibula are grossly unremarkable with degenerative changes in the medial compartment of the visualized left knee XR/XR ankle LT min 3V Impression: Obliquely oriented distal fibular fracture again seen with minimal residual step-off but no abnormal widening to the ankle mortise.
--- NOTE | ~2023-01-09 | XR_ITS ---
Examination: XR tibia fibula LT 2V, XR ankle LT min 3V Indication: S82.892A - Other fracture of left lower leg, initial encounter for close... Comparison: 12/27/2022 Technique: 3 views the left ankle with 2 additional views of the left tibia and fibula Findings: Obliquely oriented distal fibular fracture is again seen extending to the level of the ankle mortise but there is no abnormal widening to the ankle mortise. Fracture lines are still apparent and discrete with minimal residual step-off compared to the prior examination. No significant angulation. Medial and posterior malleolus appear intact. Prominent calcaneal heel spur at the attachment point of the plantar aponeurosis. More proximal tibia and fibula are grossly unremarkable with degenerative changes in the medial compartment of the visualized left knee XR/XR tibia fibula LT 2V Impression: Obliquely oriented distal fibular fracture again seen with minimal residual step-off but no abnormal widening to the ankle mortise.
== END 2023-01-09 09:53 | disposition home or self-care (01) ==
LOC: HO.HOSX 09:52
PROVIDERS: Visit Provider Physician Assistant
DX: S82.832A Other fracture of upper and lower end of left fibula, initial encounter for closed fracture (principal); G47.00 Insomnia, unspecified; M51.36 Other intervertebral disc degeneration, lumbar region; M47.816 Spondylosis without myelopathy or radiculopathy, lumbar region; F41.8 Other specified anxiety disorders; G89.4 Chronic pain syndrome; W54.1XXA Struck by dog, initial encounter; Y93.9 Activity, unspecified; Y92.9 Unspecified place or not applicable; Y99.9 Unspecified external cause status; Z79.891 Long term (current) use of opiate analgesic
CPT/HCPCS: 73590; 73610; 99202; 99212

== ENCOUNTER 2023-01-19 10:38 | Outpatient (REF) | payer MEDICARE, MEDICAID, SELFPAY ==
--- NOTE | ~2023-01-19 | XR_ITS ---
EXAMINATION: XR ANKLE, LEFT CLINICAL INFORMATION: Pain COMPARISON: 01/09/23 TECHNIQUE: AP, lateral, and mortise views of the left ankle. FINDINGS: There is a displaced spiral distal fibular fracture. The distal fracture fragment is slightly laterally displaced. The position is unchanged when compared to the most recent previous study. There is some soft tissue swelling. There are proliferative changes involving the dorsum of the midfoot and there is calcaneal spurring. The fracture is still well visualized and there is no significant bridging callus. The soft tissue swelling may have slightly improved XR/XR ankle LT min 3V IMPRESSION: No change in position or alignment of the displaced spiral distal fibular fracture. No significant bridging callus.
== END 2023-01-19 10:39 | disposition home or self-care (01) ==
LOC: HO.HOSX 10:38
PROVIDERS: Visit Provider Physician Assistant
DX: S82.832A Other fracture of upper and lower end of left fibula, initial encounter for closed fracture (principal); W54.1XXA Struck by dog, initial encounter; Y93.9 Activity, unspecified; Y92.9 Unspecified place or not applicable; Y99.9 Unspecified external cause status
CPT/HCPCS: 29405; 73610

== ENCOUNTER 2023-01-19 11:18 | Outpatient (AMB) | payer MEDICARE, MEDICAID, SELFPAY ==
--- NOTE | 2023-01-19 11:41 | MHC.OFFVIS ---
Intake Intake Visit Reasons: OV-LT ankle mildly displaced FX distal fibula-w/XR Intake Note: Darin is a 62 year old male who presents today for a follow up of his left ankle fracture. Patient reports that he is doing well, he has regained his sensation. Leg is feeling its best while it is elevated, but while it is down he begins to feel throbbing/Pins and needles. Allergies No Known Allergies Allergy (Verified 01/09/23 09:38) HPI OV-LT ankle mildly displaced FX distal fibula-w/XR HPI Details 62-year-old male who presents in the office today for a follow up of a left distal fibula fracture, which occurred on 12/27/2022 status post being hit by his dog in the ankle causing him to fall. The patient reports he is doing well. He states he has regained sensation. He claims the leg feels the best when it is elevated. When the leg hangs down he has throbbing with pins and needles. [facility] Medical History Bilateral knee pain Cervical spondylosis Chronic right hip pain Degeneration of intervertebral disc of lumbar region Depression with anxiety Insomnia Lumbar spinal stenosis Seasonal allergies Surgical History H/O colonoscopy H/O right inguinal hernia repair Social History (Updated 01/09/23 @ 09:53 by Dhruv Garner) Alcohol intake: former Patient Tobacco Use Status: Never used Tobacco Current occupational status: retired Review of Systems Const All systems reviewed & are unremarkable except as noted in HPI and below Physical Exam Const General: cooperative and no acute distress Orientation/consciousness: patient oriented x3 HEENT Head: Yes normal to inspection, Yes normocephalic and Yes atraumatic Eyes General: appearance normal, both eyes and all related structures Resp Effort & Inspection: normal respiratory effort and able to speak in complete sentences Cardio Rate: regular rate Peripheral pulses: Peripheral pulses 2+ throughout GI Palpation (GI): Soft to palpation Skin Lesions: no lesions Rashes: no rashes Neuro General: patient oriented x3 Extrem Other: Left ankle: Mild circumferential edema extending to the dorsal aspect of the left foot which has improved from the last visit. Resolving ecchymosis scattered through out the foot and ankle extending to the left knee. Negative tibia/fibia squeeze test. Tenderness to palpation along the lateral and medical malleolus. Able to slightly dorsiflex and plantarflex. Sensation intact. Pedal pulse intact. Psych Mental Status: mental status grossly normal Office Procedures Casting/Splints 28021-Fohkg Leg Cast Application Procedure code (CPT) selection complete Assessment & Plan Assessment & Plan (1) Closed fracture of left distal fibula: Code(s): S82.832A - Other fracture of upper and lower end of left fibula, initial encounter for closed fracture Plan Mr. Montalvo is a 62-year-old male who presents in the office today for a follow up of a left distal fibula fracture, which occurred on 12/27/2022 status post being hit by his dog in the ankle causing him to fall. The patient reports he is doing well. He states he has regained sensation. He claims the leg feels the best when it is elevated. When the leg hangs down he has throbbing with pins and needles. He will be placed in a short leg cast while in the office today. He will remain non-weight bearing. Follow up will be in 4 weeks with repeat x-rays, or sooner if needed. X-rays of the left ankle which were obtained while in the office today and were reviewed by me, Akua Burrell PA-C, redemonstrated a distal fibular fracture with routine healing. Orders: Orders XR ankle LT min 3V Today M25.579 - Pain in unspecified ankle and joints of unspecified foot Patient Instructions: Scribed for Akua Burrell PA-C by Dana Celestin medical language specialist, on 01/19/2023 at 11:20 am, EST. Your attestation Coding Level of Care Code Global (10041) Diagnoses Closed fracture of left distal fibula S82.832A CPT Codes Casting - CPT: 28480-Ibryq Leg Cast Application ([id number])
== END 2023-01-19 12:12 | disposition home or self-care (01) ==
PROVIDERS: PCP Internal Medicine; Visit Provider Physician Assistant
DX: S82.832D Other fracture of upper and lower end of left fibula, subsequent encounter for closed fracture with routine healing (principal)
CPT/HCPCS: 29405; 99024

== ENCOUNTER 2023-02-08 09:27 | Outpatient (AMB) | payer MEDICARE, MEDICAID, SELFPAY ==
--- NOTE | 2023-02-08 09:31 | MHC.OFFVIS ---
Intake Vital Signs 02/08/23 09:39 Height 6 ft 3 in Weight 245 lb BMI 30.6 Intake Visit Reasons: OV-LT ankle mildly displaced FX distal fibula- Intake Note: Darin is a 62 year old male who presents today for a cast change. Patient reports discomfort in cast and he had gotten his cast wet yesterday. Allergies No Known Allergies Allergy (Verified 02/08/23 09:40) HPI OV-LT ankle mildly displaced FX distal fibula- HPI Details 62-year-old male who presents in the office today for a cast change and follow up of a left distal fibula fracture, which occurred on 12/27/2022 status post being hit by his dog in the ankle causing him to fall. [facility] Medical History Bilateral knee pain Cervical spondylosis Chronic right hip pain Degeneration of intervertebral disc of lumbar region Depression with anxiety Insomnia Lumbar spinal stenosis Seasonal allergies Surgical History H/O colonoscopy H/O right inguinal hernia repair Social History Alcohol intake: former Patient Tobacco Use Status: Never used Tobacco Current occupational status: retired Review of Systems Const All systems reviewed & are unremarkable except as noted in HPI and below Physical Exam Vital Signs: BMI result Body Mass Index 30.6 Const General: cooperative, healthy appearing and no acute distress Resp Effort & Inspection: normal respiratory effort and able to speak in complete sentences Cardio Rate: regular rate Peripheral pulses: Peripheral pulses 2+ throughout GI Palpation (GI): Soft to palpation Skin Lesions: no lesions Rashes: no rashes Extrem Other: Left ankle: Mild circumferential edema extending to the dorsal aspect of the left foot which has improved from the last visit. Resolving ecchymosis scattered through out the foot and ankle extending to the left knee. Negative tibia/fibia squeeze test. Tenderness to palpation along the lateral and medical malleolus. Able to slightly dorsiflex and plantarflex. Sensation intact. Pedal pulse intact. Office Procedures Casting/Splints [id number] Leg Cast Application Procedure code (CPT) selection complete Assessment & Plan Assessment & Plan (1) Closed fracture of left distal fibula: Code(s): S82.832A - Other fracture of upper and lower end of left fibula, initial encounter for closed fracture Plan Mr. Montalvo is a 62-year-old male who presents in the office today for a cast change and follow up of a left distal fibula fracture, which occurred on 12/27/2022 status post being hit by his dog in the ankle causing him to fall. The patient was placed in a new custom made short leg cast while in the office today. He will remain non-weight bearing. Follow up will be at his scheduled appointment with repeat x-rays, or sooner if needed. Patient Instructions: Scribed for Akua Burrell PA-C by Dana Celestin medical communication specialist, on 02/08/2023 at 9:31 am, EST. Coding Level of Care Code Procedure Only Diagnoses Closed fracture of left distal fibula S82.832A CPT Codes Casting - CPT: 82045-Kfagt Leg Cast Application ([id number])
[2023-02-08 09:39] VITALS: BMI 30.6
== END 2023-02-08 10:15 | disposition home or self-care (01) ==
LOC: HO.HOS 09:27
PROVIDERS: PCP Internal Medicine; Visit Provider Physician Assistant
DX: S82.832A Other fracture of upper and lower end of left fibula, initial encounter for closed fracture (principal)
CPT/HCPCS: 29405

== ENCOUNTER → 2023-02-08 09:27 | Outpatient (BNVA) | payer MEDICARE, MEDICAID, SELFPAY | PROVIDERS: PCP Internal Medicine; Visit Provider Physician Assistant | DX: S82.832D Other fracture of upper and lower end of left fibula, subsequent encounter for closed fracture with routine healing (principal) | CPT/HCPCS: 29405 ==

== ENCOUNTER 2023-02-15 10:23 | Outpatient (REF) | payer MEDICARE, MEDICAID, SELFPAY ==
--- NOTE | ~2023-02-15 | XR_ITS ---
EXAMINATION: XR ANKLE, LEFT CLINICAL INFORMATION: Pain in unspecified ankle and joints of unspecified foot Cast off COMPARISON: Left ankle 01/19/2023 TECHNIQUE: AP, lateral, and mortise views of the left ankle. FINDINGS: Again noted is a displaced spiral distal fibular fracture. The distal fragment is slightly laterally displaced. The position is unchanged when compared to the most recent previous study. There is no significant bridging callus. There is slight improvement in the associated soft tissue swelling. Ankle joint effusion is again noted. There are proliferative changes involving the dorsum of the midfoot. Large posterior plantar calcaneal spur is seen. Small calcifications are seen at the insertion the Achilles tendon. XR/XR ankle LT min 3V IMPRESSION: Displaced spiral fracture of the distal fibula with slight improvement in soft tissue swelling.
== END 2023-02-15 10:24 | disposition home or self-care (01) ==
LOC: HO.HOSX 10:23
PROVIDERS: Visit Provider Physician Assistant
DX: S82.832D Other fracture of upper and lower end of left fibula, subsequent encounter for closed fracture with routine healing (principal)
CPT/HCPCS: 73610

== ENCOUNTER 2023-02-15 11:15 | Outpatient (AMB) | payer MEDICARE, MEDICAID, SELFPAY ==
--- NOTE | 2023-02-15 11:17 | A.OFFVIS_ITS ---
Intake Vital Signs 02/15/23 11:18 Height 6 ft 3 in Weight 245 lb BMI 30.6 Intake Visit Reasons: OV - LT ankle fx, DOI 12/27/22 Intake Note: Darin is a 62 year old male who presents today for a follow up of his left ankle fx, DOI 12/27/22. He appers to have one crutch and walking on his cast. Patient reports no pain or discomfort. Denies numbness and tingling. Allergies No Known Allergies Allergy (Verified 02/15/23 11:18) HPI OV - LT ankle fx, DOI 12/27/22 HPI Details 62-year-old right hand dominant male who presents in the office today for a follow up of a left distal fibula fracture, which occurred on 12/27/2022 status post being hit by his dog in the ankle causing him to fall. He reports no pain or discomfort. He denies numbness or tingling. The patient presents in the office today with one crutch and walking on the cast. [facility] Medical History Bilateral knee pain Cervical spondylosis Chronic right hip pain Degeneration of intervertebral disc of lumbar region Depression with anxiety Insomnia Lumbar spinal stenosis Seasonal allergies Surgical History H/O colonoscopy H/O right inguinal hernia repair Social History Alcohol intake: former Patient Tobacco Use Status: Never used Tobacco Current occupational status: retired Review of Systems Const All systems reviewed & are unremarkable except as noted in HPI and below Physical Exam Vital Signs: BMI result Body Mass Index 30.6 Const General: cooperative, healthy appearing and no acute distress Resp Effort & Inspection: normal respiratory effort and able to speak in complete sentences Cardio Rate: regular rate Peripheral pulses: Peripheral pulses 2+ throughout GI Palpation (GI): Soft to palpation Skin Lesions: no lesions Rashes: no rashes Extrem Other: Left ankle: Mild circumferential edema extending to the dorsal aspect of the left foot which has improved from the last visit. Resolving ecchymosis scattered through out the foot and ankle extending to the left knee. Negative tibia/fibia squeeze test. Tenderness to palpation along the lateral and medical malleolus. Able to slightly dorsiflex and plantarflex. Sensation intact. Pedal pulse intact. Assessment & Plan Assessment & Plan (1) Closed fracture of left distal fibula: Code(s): S82.832A - Other fracture of upper and lower end of left fibula, initial encounter for closed fracture Plan Mr. Montalvo is a 62-year-old right hand dominant male who presents in the office today for a follow up of a left distal fibula fracture, which occurred on 12/27/2022 status post being hit by his dog in the ankle causing him to fall. He reports no pain or discomfort. He denies numbness or tingling. The patient presents in the office today with one crutch and walking on the cast. Dr. Zuniga was available to speak with me about the patient while in the office today and a collaborative treatment plan was made. He will be placed in a tall walking boot, off the shelf. He may weight bear as tolerated. Follow up will be in 4-6 weeks with repeat x-rays, or sooner if needed. X-rays of the left ankle which were obtained while in the office today and were reviewed by me, Akua Burrell PA-C, revealed routine healing of a distal fibular fracture. Orders: Orders XR ankle LT min 3V Today M25.579 - Pain in unspecified ankle and joints of unspecified foot Patient Instructions: Scribed for Akua Burrell PA-C by Dana Celestin ophthalmic medical technician, on 02/12/2023 at 11:17 am, EST. Coding Level of Care Code Global (27343) Diagnoses Closed fracture of left distal fibula S82.832A
[2023-02-15 11:18] VITALS: BMI 30.6
== END 2023-02-15 12:29 | disposition home or self-care (01) ==
PROVIDERS: PCP Internal Medicine; Visit Provider Physician Assistant
DX: S82.832D Other fracture of upper and lower end of left fibula, subsequent encounter for closed fracture with routine healing (principal)
CPT/HCPCS: 99024

== ENCOUNTER 2023-03-22 09:30 | Outpatient (AMB) | payer MEDICARE, MEDICAID, SELFPAY ==
--- NOTE | 2023-03-22 09:54 | A.OFFVIS_ITS ---
Intake Vital Signs 03/22/23 09:57 Height 6 ft 3 in Weight 245 lb BMI 30.6 Intake Visit Reasons: OV - LT ankle fx, DOI 12/27/22 Intake Note: Darin is a 62 year old male who presents today for his 4 week follow up of his left ankle fx, DOI 12/27/22. X - rays were updated in office. Patient reports having some pain in his heel, big toe and on his foot but no pain on his ankle. Denies numbness and tingling. Allergies No Known Allergies Allergy (Verified 03/22/23 09:57) HPI OV - LT ankle fx, DOI 12/27/22 HPI Details 62-year-old male who presents in the off ice today for a follow up of a left distal fibula fracture, which occurred on 12/27/2022 status post being hit by his dog in the ankle causing him to fall. The patient reports some pain in his heel, big toe, and in his foot. He denies pain in the ankle. He denies numbness or tingling. [facility] Medical History Bilateral knee pain Cervical spondylosis Chronic right hip pain Degeneration of intervertebral disc of lumbar region Depression with anxiety Insomnia Lumbar spinal stenosis Seasonal allergies Surgical History H/O colonoscopy H/O right inguinal hernia repair Social History Alcohol intake: former Patient Tobacco Use Status: Never used Tobacco Current occupational status: retired Review of Systems Const All systems reviewed & are unremarkable except as noted in HPI and below Physical Exam Vital Signs: BMI result Body Mass Index 30.6 Const General: cooperative, healthy appearing and no acute distress Resp Effort & Inspection: normal respiratory effort and able to speak in complete sentences Cardio Rate: regular rate Peripheral pulses: Peripheral pulses 2+ throughout GI Palpation (GI): Soft to palpation Skin Lesions: no lesions Rashes: no rashes Extrem Other: Left ankle: Mild circumferential edema extending to the dorsal aspect of the left foot which has improved from the last visit. Resolving ecchymosis scattered through out the foot and ankle extending to the left knee. Negative tibia/fibia squeeze test. Tenderness to palpation along the lateral and medical malleolus. Able to slightly dorsiflex and plantarflex. Sensation intact. Pedal pulse intact. Assessment & Plan Assessment & Plan (1) Closed fracture of left distal fibula: Code(s): S82.832A - Other fracture of upper and lower end of left fibula, initial encounter for closed fracture Qualifiers: Encounter type: subsequent encounter Fracture healing: with routine healing Fracture morphology: unspecified fracture morphology Qualified Code(s): S82.832D - Other fracture of upper and lower end of left fibula, subsequent encounter for closed fracture with routine healing Plan Mr. Montalvo is a 62-year-old male who presents in the office today for a follow up of a left distal fibula fracture, which occurred on 12/27/2022 status post being hit by his dog in the ankle causing him to fall. The patient reports some pain in his heel, big toe, and in his foot. He denies pain in the ankle. He denies numbness or tingling. The patient may discontinue the use of the boot at this time. He will be referred to physical therapy. Follow up will be in 6 weeks for a ROM check, or sooner if needed. X-rays of the left ankle obtained while in the office today and reviewed by me, Akua Burrell PA-C, revealed routine healing of a left distal fibula fracture. Orders: Orders XR ankle LT min 3V Today M25.579 - Pain in unspecified ankle and joints of unspecified foot PT Evaluation and Treatment Today S82.832A - Other fracture of upper and lower end of left fibula, initial encounter for closed fracture Patient Instructions: Scribed for Akua Burrell PA-C by nando Mattson scribe, on 03/22/2023 at 9:38 am, EST. Coding Level of Care Code Global (91104) Diagnoses Closed fracture of distal end of left fibula with routine healing, unspecified fracture morphology, subsequent encounter S82.832D Encounter type: subsequent encounter Fracture healing: with routine healing Fracture morphology: unspecified fracture morphology
[2023-03-22 09:57] VITALS: BMI 30.6
== END 2023-03-22 10:07 | disposition home or self-care (01) ==
PROVIDERS: PCP Internal Medicine; Visit Provider Physician Assistant
DX: S82.832D Other fracture of upper and lower end of left fibula, subsequent encounter for closed fracture with routine healing (principal)
CPT/HCPCS: 99024

== ENCOUNTER 2023-03-22 11:35 | Outpatient (REF) | payer MEDICARE, MEDICAID, SELFPAY ==
--- NOTE | ~2023-03-22 | XR_ITS ---
EXAMINATION: XR ANKLE, LEFT CLINICAL INFORMATION: Ankle pain COMPARISON: 02/15/2013 TECHNIQUE: AP, lateral, and mortise views of the left ankle. FINDINGS: No significant change in the alignment or appearance of the distal fibular fracture. Some callus formation is present posteriorly. No definite osseous bridging. The ankle mortise appears preserved. Diffuse soft tissue swelling. Large heel spur. XR/XR ankle LT min 3V IMPRESSION: No significant change in the alignment or appearance of the distal fibular fracture.
== END 2023-03-22 11:36 | disposition home or self-care (01) ==
LOC: HO.HOSX 11:35
PROVIDERS: Visit Provider Physician Assistant
DX: S82.832D Other fracture of upper and lower end of left fibula, subsequent encounter for closed fracture with routine healing (principal); M25.572 Pain in left ankle and joints of left foot; X58.XXXD Exposure to other specified factors, subsequent encounter
CPT/HCPCS: 73610

== ENCOUNTER 2023-05-21 09:00 | Outpatient (RCR) | payer MEDICARE, MEDICAID, SELFPAY ==
--- NOTE | 2023-04-12 08:39 | MHC.PT.EP ---
[facility] [place] [facility] [place] [facility] [place] [facility] [address] [phone] F: [phone] F: [phone] F: [phone] F: [phone] Physical Therapy Plan of Care Date of Evaluation: 04/11/23 Date of Surgery: Diagnosis: DISTAL FIBULAR FRACTURE (KP) Assessment: NIMCO IS A PLEASANT 62 YO GENTLEMAN WHO WAS PLAYING WITH DOG WHEN SHE CRASHED INTO HIS ANKLE AND HE FELT A PAINFUL POP. HE WAS UNABLE TO RISE ON HIS OWN AND BUMPED HIMSELF IN SITTING UP HIS STAIRS AND CALLED HIS DTR TO BRING HIM TO THE ED. SEEN BY ORTHO AND WAS CASTED FOR SEVERAL WEEKS THEN PROGRESSED TO A BOOT. CURRENTLY HE REPORTS PAIN WITH WALKING AND STAIRS. HE IS HAVING DIFFICULTY WITH HEAVY LIFTING, AND HE WOULD LIKE TO WALK BETTER HE ENJOYS HIKING WITH HIS DOG. HE REPORTS THE ANKLE HAS REMAINED QUITE SWOLLEN SINCE THE INITIAL INJURY AND INCREASES THROUGHOUT THE DAY. HE DENIES ANY CHANGES IN SENSATION. UPON EXAM IMPAIRMENTS INCLUDE DECREASED ANKLE ROM, DECREASED STRENGTH OF HIP AND LOWER LEG, ALTERED GAIT PATTERN, INCREASED EDEMA AND TISSUE RESTRICTION, INCREASED PAIN. FUNCTIONAL LIMITATIONS INCLUDE DECREASED TOLERANCE TO WALKING, STATIC STANDING, STAIR NEGOTIATION AND WALKING ON UNEVEN SURFACES. HE REPORTS DECREASED TOLERANCE TO LIFTING AND CARRYING HEAVY OBJECTS, HE STATES DECREASED PARTICIPATION IN RECREATIONAL AND HOMEMAKING TASKS. Frequency and Duration: The patient will be seen 2 X WEEK FOR 6 WEEKS Short Term Goals: INITATE HEP AND PROMOTE SELF MANAGEMENT OF SYMPTOMS Mill Supervisor Goals: FULL, PAINFREE ANKLE ROM FULL STRENGTH OF HIP, KNEE AND ANKLE, EQUAL EZEQUIEL TO RETURN TO SHORT HIKES WITH DOG (1-2 MILES) WITHOUT PAIN GREATER THAN 2/10 TO DEMONSTRATE NON-ANTALGIC GAIT Treatment Plan: Modalities to reduce pain, spasms and effusion. Manual therapy to restore motion and function. Therapeutic exercise to improve strength and flexibility. Neuromuscular re-education for posture and balance. Therapeutic activities to return to functional activities of daily living. Electronically signed by: LEVI GATES PT DPT Please sign and return to therapist. Thank you for your referral.
== END 2023-07-16 08:47 | disposition home or self-care (01) ==
LOC: HO.PT 09:00
PROVIDERS: PCP Internal Medicine; Visit Provider Physician Assistant
DX: S82.832D Other fracture of upper and lower end of left fibula, subsequent encounter for closed fracture with routine healing (principal)
CPT/HCPCS: 97110; 97161

== ENCOUNTER 2023-07-17 08:45 | Outpatient (AMB) | payer MEDICARE, MEDICAID, SELFPAY ==
--- NOTE | 2023-07-17 08:50 | MHC.OFFVIS ---
Intake Vital Signs 07/17/23 08:54 Height 6 ft 3 in Weight 254 lb 8 oz BMI 31.8 BP 140/89 H Blood Pressure Location Lt brachial Position Sitting Pulse 79 Pulse Source Pulse Oximeter Pulse Oximetry (%) 97 Oxygen Delivery Method Room Air Intake Visit Reasons: Opioid Re-establishment/confirmed Intake Note: Pain today 8/10 Patient will have UDS done in office today 07/17/23. Income Tax Analyst Required: No Accompanied by: Self / Same As Patient Allergies No Known Allergies Allergy (Verified 07/17/23 08:57) HPI HPI Comments History of Present Illness Details Patient is returns today for follow up and re-entrance into opioid-program for medial pain management. Patient has been our patient since early spring 2020 and was started on oxycodone 5 mg TID prn for chronic neck and low back pain due to significant arthritis and degenerative changes. He underwent multiple back injections by Dr. Cha in the past, completed PT and chiropractic manipulation therapies and continues to attend chiropractic adjustments on as needed basis. Patient rates his pain today at 8/10. back pain is axial and at times will radiate into both lower extremities anteriorly with associates numbness and tingling in his shins and left toes. He reports healing left distal fibula fracture that happended last year for which he completed PT and orthoric boot. Patient has been managing his symptoms with left over oxycodone since last visit for severe pain only, as well as Tylenol, NSAIDs, trazadone, tizanidine, heating therapy, CBD cream and edible marijuana in candy bar or cookies form. He grows his own marijuana and also obtains candy bars from local dispensary. Patient reports pain affects his daily activties, functioning, mood and sleep. He has been waking up through the night due to pain. We will obtain UDS today and discuss results in 2 weeks for potential re-start of medical pain management for chronic neck and low back pain. We also reviewed briefly reviewed to update his spine imaging for interventional treatments. He denies any changes to medications, medical history or recent hospitalizations. Denies any fever, abdominal or groin pain, weakness, foot drop, bladder or bowel dysfunction, or saddle anesthesia. PRIOR 01/09/23: Darin is a pleasant 62 years old male who returns today for his pill count. Patient is supposed to have #54 pills in his possession and has #49. Unfortunately, this demonstrates an irresponsible attitude towards his medication regimen. He is prescribed oxycodone 5 mg BID prn and therefore is short 2 days. Patient reports inadequate analgesia with no noted side effects due to recent left ankle fracture on 12/27/22. Unfortunately, he did not notify our office with this and has been taking more medication than daily prescribed to control his symptoms. He did declined script from ER for additional oxycodone. Denies any fever, chills, constipation, sedation, nausea, dizziness or urinary retention. We reviewed his opioid contract today again and copy of opioid contract was provided to patient at last visit. I will send in a compassionate prescription and extend it up to 4 weeks. [facility] ER narrative on 12/27/22: 62-year-old male presents with lateral left ankle pain that happened just prior to arrival, patient reports his dog got the zoomies and head butted him right in the ankle this caused him to fall, when patient fell he did not hit his head or lose consciousness. Patient not on blood thinners. He reports that his left ankle pain is worse with movement better at rest. He reports the area immediately became swollen. He reports when the dog head-butted him he heard a crack. He is concerned he may be fractured. No previous issues of left ankle. Denies numbness, tingling, fevers, chills, chest pain, shortness breath, nausea, vomiting, headache, vision changes, dizziness and weakness. Patient has been using crutches since his injury and was placed in a posterior short-leg and a stirrup splint in ER. He has initial evaluation by our Orthopedic providers this afternoon. [facility] Medical History (Updated 07/17/23 @ 09:57 by SARA Whittington) Bilateral knee pain Chronic right hip pain Seasonal allergies Cervical spondylosis Degeneration of intervertebral disc of lumbar region Lumbar spinal stenosis Insomnia Depression with anxiety Surgical History H/O colonoscopy H/O right inguinal hernia repair Social History Alcohol intake: former Patient Tobacco Use Status: Never used Tobacco Current occupational status: retired Review of Systems Const All systems reviewed & are unremarkable except as noted in HPI and below Physical Exam On exam today: Appears afebrile. Alert and oriented. Mood and affect appropriate. Follows and participates in conversation appropriately. Respiratory effort is unlabored. No cough. Able to transition from sit to stand unassisted. Ambulates with bilaterally normal heel strike and toe off. Able to stand and walk on toes and heels. Back/Spine/Pelvis Cervical Spine: cervical muscular tenderness, pain with cervical ROM and No Cervical spine tenderness Thoracic/Lumbar Spine: thoracic and lumbar spine normal to inspection, No Thoracic/lumbar spine scar(s), Lasegue's sign negative, straight leg raise negative bilaterally, pain with thoraco-lumbar ROM, paraspinal muscle tenderness, thoraco-lumbar ROM limited, No thoracic spinal tenderness and lumbar spinal tenderness at L4 and at L5 Pelvis: no buttock tenderness Sacroiliac joints: bilaterally nontender Psych Appearance: grossly normal and well kempt Mental Status: mental status grossly normal Speech and movement: Normal speech and movement present and Clear speech present Affect: normal affect Attitude: cooperative Thought process: Normal thought process present Thought content: Normal thought content present, suicidality (none), no hallucinations and No Depressive thoughts present Insight: Good insight present (Psych) Judgement: Good judgement present (Psych) Results Reviewed Results Reviewed: Impression: Mild dextroconvex lumbar scoliosis and moderately severe lumbar spondylosis superimposed upon 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 There are multilevel moderate to large size L3-L4 through L5-S1 intervertebral disc protrusions there is multilevel facet arthropathy. L3-4 level posterior and right paramedian-posterolateral disc protrusion with displacement of extraforaminal right L3 nerve root. Mild central canal stenosis and moderate narrowing of lateral recesses. Moderately severe right neural foraminal narrowing. L4-L5 level large posterior and right paramedian and posterolateral disc protrusion. Severe canal stenosis with severe crowding of intrathecal nerve roots. Severe right neural foraminal narrowing and moderately severe left neural foraminal narrowing. There L5-S1 moderate posterior and right paramedian slightly right posterolateral disc protrusion. The right posterior paramedian component demonstrates small peripheral annular fissuring resultant severe compression of right S1 nerve root at the right lateral recess. Small focal disc herniation at this level as possible. Moderate bilaeral narrowing of lateral recesses. Assessment & Plan Assessment & Plan (1) Degeneration of intervertebral disc of lumbar region: Code(s): M51.36 - Other intervertebral disc degeneration, lumbar region (2) Lumbar spondylosis: Code(s): M47.816 - Spondylosis without myelopathy or radiculopathy, lumbar region (3) Chronic pain syndrome: Code(s): G89.4 - Chronic pain syndrome (4) Spondylosis of lumbosacral spine with radiculopathy: Code(s): M47.27 - Other spondylosis with radiculopathy, lumbosacral region (5) Cervical spondylosis: Code(s): M47.812 - Spondylosis without myelopathy or radiculopathy, cervical region Plan On evaluation, it was determined that there was a continued need to continue palliative chronic opioid prescribing. Risks and benefits were reviewed with the patient. Patient believes he was more functional and less symptomatic on chronic opioids. MassPAT was reviewed and is consistent with his history. Patient had left over oxycodone that he continued to use on prn basis only for severe pain and also uses edible marijuana. Will obtain UDS today and evaluate results in 2 weeks for re-entrance into opioid program. We also briefly reviewed interventional treatments and updating his spine imaging. Patient is hesitant towards injections due to history of multiple injections with minimal benefit but will think about newer procedures including PNS trial vs RFA for his neck and low back pain. All questions and concerns have been answered and patient agreed with the plan. Follow up for UDS review and sooner as needed. Coding Level of Care Code Est Pt Level 3 (48824) Diagnoses Degeneration of intervertebral disc of lumbar region M51.36 Lumbar spondylosis M47.816 Chronic pain syndrome G89.4 Spondylosis of lumbosacral spine with radiculopathy M47.27 Cervical spondylosis M47.812
[2023-07-17 08:54] VITALS: BP 140/89; PULSE 79; O2SAT 97; BMI 31.8
== END 2023-07-17 09:17 | disposition home or self-care (01) ==
PROVIDERS: PCP Internal Medicine; Visit Provider Nurse Practitioner Family
DX: G89.4 Chronic pain syndrome (principal); M51.36 Other intervertebral disc degeneration, lumbar region; M47.816 Spondylosis without myelopathy or radiculopathy, lumbar region; M47.27 Other spondylosis with radiculopathy, lumbosacral region; M47.812 Spondylosis without myelopathy or radiculopathy, cervical region
CPT/HCPCS: 99213

== ENCOUNTER → 2023-07-17 08:45 | Outpatient (BNVA) | payer MEDICARE, MEDICAID, SELFPAY | PROVIDERS: PCP Internal Medicine; Visit Provider Nurse Practitioner Family | DX: G89.4 Chronic pain syndrome (principal); M51.36 Other intervertebral disc degeneration, lumbar region; M47.816 Spondylosis without myelopathy or radiculopathy, lumbar region; M47.27 Other spondylosis with radiculopathy, lumbosacral region; M47.812 Spondylosis without myelopathy or radiculopathy, cervical region | CPT/HCPCS: 99212 ==

== ENCOUNTER 2023-07-31 08:53 | Outpatient (AMB) | payer MEDICARE, MEDICAID, SELFPAY ==
--- NOTE | 2023-07-31 08:53 | MHC.OFFVIS ---
Intake Vital Signs 07/31/23 09:06 Height 6 ft 3 in Weight 252 lb 6 oz BMI 31.5 BP 173/103 H Blood Pressure Location Rt brachial Position Sitting Pulse 100 Pulse Source Pulse Oximeter Pulse Oximetry (%) 100 Oxygen Delivery Method Room Air Intake Visit Reasons: Follow Up/UDS Review Intake Note: Pt here today for re evaluation into the Opioid program. Opioid Contracts reviewed and discussed thoroughly with pt, and pt states he understands fully without questions. Emphasized in the contract, pt was instructed he must come in for scheduled pill counts, and bring all medication Rx by [facility], to each and every office visit, in the original pharmacy container. Pt states he is clear he will only obtain controlled meds from [facility] only, utilize the same pharmacy as stated in the contract, and will be subjected to random UDS and pill counts. Pt aware if he is off by more than 1 day's worth of prescribed medication, or misses a pill count, this would be grounds for suspension. Pt is aware that he must notify our office if he becomes hospitalized and given pain medication and pain medication is not to be accepted as an out-patient by any other provider than [facility]. Pt also aware that he must provide receipts from a dispensary if he partakes in Marijuana usage, and the risks of taking street marijuana was reviewed with pt. (Pt grows his own) Pt agrees and states he understands completely without further questions at this time. Contract was resigned by patient, copy of signed contract was provided to patient. Pain today 9/10. 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 UDS was consistent. Per risk assessment, he is at moderate risk for adverse effects from opioids. PHQ score was 4. Detailed risk assessment scanned under activity tab. Contract reviewed and signed. Denies any recent cough, cold, infection, fever, any significant changes in his medical history, medications or recent hospitalizations. Reports pain 9/10 due to chronic neck and low back pain without radicular symptoms. Denies any recent trauma, injury or falls. PRIOR: Patient is returns today for follow up and re-entrance into opioid-program for medial pain management. Patient has been our patient since early spring 2020 and was started on oxycodone 5 mg TID prn for chronic neck and low back pain due to significant arthritis and degenerative changes. He underwent multiple back injections by Dr. Cha in the past, completed PT and chiropractic manipulation therapies and continues to attend chiropractic adjustments on as needed basis. Patient rates his pain today at 8/10. back pain is axial and at times will radiate into both lower extremities anteriorly with associates numbness and tingling in his shins and left toes. He reports healing left distal fibula fracture that happended last year for which he completed PT and orthoric boot. Patient has been managing his symptoms with left over oxycodone since last visit for severe pain only, as well as Tylenol, NSAIDs, trazadone, tizanidine, heating therapy, CBD cream and edible marijuana in candy bar or cookies form. He grows his own marijuana and also obtains candy bars from local dispensary. Patient reports pain affects his daily activties, functioning, mood and sleep. He has been waking up through the night due to pain. We will obtain UDS today and discuss results in 2 weeks for potential re-start of medical pain management for chronic neck and low back pain. We also reviewed briefly reviewed to update his spine imaging for interventional treatments. He denies any changes to medications, medical history or recent hospitalizations. Denies any fever, abdominal or groin pain, weakness, foot drop, bladder or bowel dysfunction, or saddle anesthesia. PRIOR 01/09/23: Darin is a pleasant 62 years old male who returns today for his pill count. Patient is supposed to have #54 pills in his possession and has #49. Unfortunately, this demonstrates an irresponsible attitude towards his medication regimen. He is prescribed oxycodone 5 mg BID prn and therefore is short 2 days. Patient reports inadequate analgesia with no noted side effects due to recent left ankle fracture on 12/27/22. Unfortunately, he did not notify our office with this and has been taking more medication than daily prescribed to control his symptoms. He did declined script from ER for additional oxycodone. Denies any fever, chills, constipation, sedation, nausea, dizziness or urinary retention. We reviewed his opioid contract today again and copy of opioid contract was provided to patient at last visit. I will send in a compassionate prescription and extend it up to 4 weeks. [facility] narrative on 12/27/22: 62-year-old male presents with lateral left ankle pain that happened just prior to arrival, patient reports his dog got the zoomies and head butted him right in the ankle this caused him to fall, when patient fell he did not hit his head or lose consciousness. Patient not on blood thinners. He reports that his left ankle pain is worse with movement better at rest. He reports the area immediately became swollen. He reports when the dog head-butted him he heard a crack. He is concerned he may be fractured. No previous issues of left ankle. Denies numbness, tingling, fevers, chills, chest pain, shortness breath, nausea, vomiting, headache, vision changes, dizziness and weakness. Patient has been using crutches since his injury and was placed in a posterior short-leg and a stirrup splint in ER. He has initial evaluation by our Orthopedic providers this afternoon. [facility] Medical History (Updated 07/31/23 @ 09:28 by [facility] Whitting[facility]) Closed fracture of left distal fibula Cervicalgia Bilateral knee pain Chronic right hip pain Seasonal allergies Cervical spondylosis Degeneration of intervertebral disc of lumbar region Lumbar spinal stenosis Insomnia Depression with anxiety Surgical History H/O colonoscopy H/O right inguinal hernia repair Social History Alcohol intake: former Patient Tobacco Use Status: Never used Tobacco Current occupational status: retired Review of Systems Const All systems reviewed & are unremarkable except as noted in HPI and below Physical Exam On exam today: Appears afebrile. Alert and oriented. Mood and affect appropriate. Follows and participates in conversation appropriately. Respiratory effort is unlabored. No cough. Able to transition from sit to stand unassisted. Ambulates with bilaterally normal heel strike and toe off. Able to stand and walk on toes and heels. Back/Spine/Pelvis Cervical Spine: cervical ROM normal, cervical muscular tenderness, pain with cervical ROM and No Cervical spine tenderness Thoracic/Lumbar Spine: thoracic and lumbar spine normal to inspection, Lasegue's sign negative, straight leg raise negative bilaterally, pain with thoraco-lumbar ROM, thoraco-lumbar ROM limited, No thoracic spinal tenderness and lumbar spinal tenderness at L4 and at L5 Pelvis: no buttock tenderness Sacroiliac joints: bilaterally nontender Psych Appearance: grossly normal and well kempt Mental Status: mental status grossly normal Speech and movement: Normal speech and movement present and Clear speech present Affect: normal affect Attitude: cooperative Thought process: Normal thought process present Thought content: Normal thought content present, suicidality (none), no hallucinations and No Depressive thoughts present Insight: Good insight present (Psych) Judgement: Good judgement present (Psych) Assessment & Plan Assessment & Plan (1) Degeneration of intervertebral disc of lumbar region: Code(s): M51.36 - Other intervertebral disc degeneration, lumbar region (2) Lumbar spondylosis: Code(s): M47.816 - Spondylosis without myelopathy or radiculopathy, lumbar region (3) Chronic pain syndrome: Code(s): G89.4 - Chronic pain syndrome (4) Cervical spondylosis: Code(s): M47.812 - Spondylosis without myelopathy or radiculopathy, cervical region (5) Opioid contract exists: Code(s): 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 Risks and benefits were discussed with the patient. He believes he was more functional and less symptomatic on chronic opioids. [employer] was reviewed and is consistent with his history. The patient completed all pain management opioid program screening paperwork and contracts, which were reviewed in detail. His UDS was concordant except it revealed marijuana which he grows himself and reports being complied per Marijuana cultivation limit in [place]. Will send in a prescription for oxycodone 5 mg TID for 30 days and follow up in 4 weeks for pill count.? All questions were answered and he is agreeable to the plan. Medications: Refilled oxycodone Partial Fill upon patient request. 5 mg PO TID 30 days PRN 90 tabs 0RF pain, severe M47.27 - Other spondylosis with radiculopathy, lumbosacral region, M54.2 - Cervicalgia, Z79.891 - residential (current) use of opiate analgesic naloxone 4 mg/actuation (Narcan) spray 1 dose into ONE nostril; alternate nostrils w each dose until help arrives 4 mg intranasal Q3M PRN 2 ea 0RF opioid overdose Coding Level of Care Code Est Pt Level 4 (37576) Diagnoses Degeneration of intervertebral disc of lumbar region M51.36 Lumbar spondylosis M47.816 Chronic pain syndrome G89.4 Cervical spondylosis M47.812 Opioid contract exists Z79.891 Cervicalgia M54.2
[2023-07-31 09:06] VITALS: BP 173/103; PULSE 100; O2SAT 100; BMI 31.5
== END 2023-07-31 09:23 | disposition home or self-care (01) ==
PROVIDERS: PCP Internal Medicine; Visit Provider Nurse Practitioner Family
DX: G89.4 Chronic pain syndrome (principal); M51.36 Other intervertebral disc degeneration, lumbar region; M47.816 Spondylosis without myelopathy or radiculopathy, lumbar region; M47.812 Spondylosis without myelopathy or radiculopathy, cervical region; Z79.891 Long term (current) use of opiate analgesic; M54.2 Cervicalgia
CPT/HCPCS: 99214

== ENCOUNTER → 2023-07-31 08:53 | Outpatient (BNVA) | payer MEDICARE, MEDICAID, SELFPAY | PROVIDERS: PCP Internal Medicine; Visit Provider Nurse Practitioner Family | DX: G89.4 Chronic pain syndrome (principal); M51.36 Other intervertebral disc degeneration, lumbar region; M47.816 Spondylosis without myelopathy or radiculopathy, lumbar region; M47.812 Spondylosis without myelopathy or radiculopathy, cervical region; M54.2 Cervicalgia; Z79.891 Long term (current) use of opiate analgesic | CPT/HCPCS: 99212 ==

== ENCOUNTER 2023-08-27 08:55 | Outpatient (AMB) | payer MEDICARE, MEDICAID, SELFPAY ==
--- NOTE | 2023-08-27 08:57 | A.OFFVIS_ITS ---
Intake Vital Signs 08/27/23 09:04 Height 6 ft 3 in Weight 255 lb 3 oz BMI 31.9 BP 134/71 Blood Pressure Location Lt brachial Position Sitting Respiration 16 Pulse 75 Pulse Source Pulse Oximeter Pulse Oximetry (%) 98 Oxygen Delivery Method Room Air Intake Visit Reasons: Medication Count Intake Note: Darin comes in today for a pill count to oxycodone, patient should have 9 tablets and presents with 13 tablets which he last took today 08/27/23 at 7am. Pain today 810. Acid Concentrator Required: No Accompanied by: Self / Same As Patient Allergies No Known Allergies Allergy (Verified 08/27/23 09:05) HPI HPI Comments History of Present Illness Details Darin is a pleasant 63 years old male who returns today for his pill count. Patient is supposed to have #9 pills in his possession and has #13. This demonstrates a responsible attitude in regards to the opioid regimen. Patient reports adequate analgesia with no noted side effects. Denies any fever, chills, constipation, sedation, nausea, dizziness or urinary retention. Patient states he has an increased ability to perform activities of daily living, interact socially and be more functional. Patient reports increased pain in his neck with range of motion without radiation to his arms, right lateral hip and right knee pain. Patient reports increased pain with walking and climbing stairs in the lateral joint line of his right knee. Reports difficulty sleeping on his right side due to hip pain. Patient reports cortisone injections in the past provided him mild pain relief. Denies any fever, weight loss, abdominal or groin pain, weakness, locking or giving away knee, foot drop, bladder or bowel dysfunction or saddle anesthesia. REPLACED BY [facility] Medical History Closed fracture of left distal fibula Cervicalgia Bilateral knee pain Chronic right hip pain Seasonal allergies Cervical spondylosis Degeneration of intervertebral disc of lumbar region Lumbar spinal stenosis Insomnia Depression with anxiety Surgical History H/O colonoscopy H/O right inguinal hernia repair Social History Alcohol intake: former Patient Tobacco Use Status: Never used Tobacco Current occupational status: retired Review of Systems Const All systems reviewed & are unremarkable except as noted in HPI and below Physical Exam On exam today: Appears afebrile. Alert and oriented. Mood and affect appropriate. Follows and participates in conversation appropriately. Respiratory effort is unlabored. No cough. Able to transition from sit to stand unassisted. Ambulates with bilaterally normal heel strike and toe off. Able to stand and walk on toes and heels. Back/Spine/Pelvis Cervical Spine: cervical ROM normal, cervical muscular tenderness, pain with cervical ROM and No Cervical spine tenderness Thoracic/Lumbar Spine: thoracic and lumbar spine normal to inspection, Lasegue's sign negative, straight leg raise negative bilaterally, pain with thoraco-lumbar ROM, thoraco-lumbar ROM limited, No thoracic spinal tenderness and lumbar spinal tenderness at L4 and at L5 Pelvis: no buttock tenderness Sacroiliac joints: bilaterally nontender Extrem General: Yes capillary refill normal, Yes no clubbing, cyanosis or edema and Yes no calf tenderness Right lower extremity: hip/thigh Details: tenderness Location: of the hip Location: over the greater trochanter and knee (Limited ROM due to pain.) Details: tenderness Location: of the lateral joint line and crepitus; no swelling, no ecchymosis and no unusual warmth Psych Appearance: grossly normal Mental Status: mental status grossly normal Speech and movement: Normal speech and movement present Affect: normal affect Attitude: cooperative Thought process: Normal thought process present Thought content: Normal thought content present, suicidality (none), no hallucinations and No Depressive thoughts present Insight: Good insight present (Psych) Judgement: Good judgement present (Psych) Results Reviewed Results Reviewed: Impression: Mild dextroconvex lumbar scoliosis and moderately severe lumbar spondylosis superimposed upon 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 There are multilevel moderate to large size L3-L4 through L5-S1 intervertebral disc protrusions there is multilevel facet arthropathy. L3-4 level posterior and right paramedian-posterolateral disc protrusion with displacement of extraforaminal right L3 nerve root. Mild central canal stenosis and moderate narrowing of lateral recesses. Moderately severe right neural foraminal narrowing. L4-L5 level large posterior and right paramedian and posterolateral disc protrusion. Severe canal stenosis with severe crowding of intrathecal nerve roots. Severe right neural foraminal narrowing and moderately severe left neural foraminal narrowing. There L5-S1 moderate posterior and right paramedian slightly right posterolateral disc protrusion. The right posterior paramedian component demonstrates small peripheral annular fissuring resultant severe compression of right S1 nerve root at the right lateral recess. Small focal disc herniation at this level as possible. Moderate bilaeral narrowing of lateral recesses. Assessment & Plan Assessment & Plan (1) Opioid contract exists: Code(s): Z79.891 - USP (current) use of opiate analgesic (2) Lumbar spondylosis: Code(s): M47.816 - Spondylosis without myelopathy or radiculopathy, lumbar region (3) Chronic pain syndrome: Code(s): G89.4 - Chronic pain syndrome (4) Right knee pain: Code(s): M25.561 - Pain in right knee (5) Greater trochanteric bursitis of right hip: Code(s): M70.61 - Trochanteric bursitis, right hip (6) Cervical spondylosis: Code(s): M47.812 - Spondylosis without myelopathy or radiculopathy, cervical region Plan Patient has shown accountability for his medication regimen and the pill count was accurate. The patient reported no noted side effects. There is no evidence of misuse, abuse or diversion at this time. General Sentiment reviewed. Will sent next script with advanced date of 09/04/23. Scripts send for lidocaine patch and diclofenac gel for knee, neck and hip pain. Side effects and precautions reviewed with patient. For right knee pain, will schedule Durolane injection with local and US guidance . Expectations, risks and benefits were reviewed. Patient is aware he will be contacted to schedule this procedure. All questions were answered and patient is in agreement of plan. Follow up in 4 weeks for pill count and sooner if needed. Medications: New lidocaine 5% 1 patch topical DAILY 30 days 30 ea 3RF pain M25.561 - Pain in right knee diclofenac sodium 3% 1 appl topical BID 100 grams 0RF pain M25.561 - Pain in right knee, M47.812 - Spondylosis without myelopathy or radiculopathy, cervical region, M70.61 - Trochanteric bursitis, right hip Changed From oxycodone Partial Fill upon patient request. 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 5 mg PO TID 30 days PRN 90 tabs 0RF pain, severe M47.27 - Other spondylosis with radiculopathy, lumbosacral region, M54.2 - Cervicalgia, Z79.891 - USP (current) use of opiate analgesic Coding Level of Care Code Est Pt Level 4 (92550) Diagnoses Opioid contract exists Z79.891 Lumbar spondylosis M47.816 Chronic pain syndrome G89.4 Right knee pain M25.561 Greater trochanteric bursitis of right hip M70.61 Cervical spondylosis M47.812
[2023-08-27 09:04] VITALS: BP 134/71; PULSE 75; RESP 16; O2SAT 98; BMI 31.9
== END 2023-08-27 09:11 | disposition home or self-care (01) ==
PROVIDERS: PCP Internal Medicine; Visit Provider Nurse Practitioner Family
DX: Z79.891 Long term (current) use of opiate analgesic (principal); M47.816 Spondylosis without myelopathy or radiculopathy, lumbar region; G89.4 Chronic pain syndrome; M25.561 Pain in right knee; M70.61 Trochanteric bursitis, right hip; M47.812 Spondylosis without myelopathy or radiculopathy, cervical region
CPT/HCPCS: 99214

== ENCOUNTER → 2023-08-27 08:55 | Outpatient (BNVA) | payer MEDICARE, MEDICAID, SELFPAY | PROVIDERS: PCP Internal Medicine; Visit Provider Nurse Practitioner Family | DX: Z51.81 Encounter for therapeutic drug level monitoring (principal); M47.816 Spondylosis without myelopathy or radiculopathy, lumbar region; M25.561 Pain in right knee; M70.61 Trochanteric bursitis, right hip; M47.812 Spondylosis without myelopathy or radiculopathy, cervical region; G89.4 Chronic pain syndrome; Z79.891 Long term (current) use of opiate analgesic | CPT/HCPCS: 99212 ==

== ENCOUNTER 2023-09-06 06:17 | Outpatient (REF) | payer MEDICARE, MEDICAID, SELFPAY ==
--- NOTE | ~2023-09-06 | FL_ITS ---
EXAMINATION: XR FLUOROSCOPY WITH IMAGES CLINICAL INFORMATION: Right knee pain. COMPARISON: None available. TECHNIQUE: Fluoroscopy Supervised By: Dr. Cuadra. Fluoroscopy Time: 0.4 min. Cumulative Dose: 2.25 mGy. DAP: 0.308 Gy-cm2. Images: 2. FINDINGS: 2 images demonstrate needle overlying the region of the right knee. Contrast is seen within the joint space. Please see Dr. Cuadra' report for complete details. FL/FL guidance in treatment room IMPRESSION: Fluoroscopy and spot films provided during right knee injection.
== END 2023-09-06 06:18 | disposition home or self-care (01) ==
LOC: CF 06:17
PROVIDERS: Visit Provider Internal Medicine
DX: M17.11 Unilateral primary osteoarthritis, right knee (principal)
CPT/HCPCS: 20610; J7318

== ENCOUNTER 2023-09-06 10:42 | Outpatient (AMB) | payer MEDICARE, MEDICAID, SELFPAY ==
[2023-09-06 10:48] VITALS: BP 138/70; PULSE 70; RESP 16; O2SAT 99; BMI 31.9
--- NOTE | 2023-09-06 10:48 | A.OFFVIS_ITS ---
Intake Vital Signs 09/06/23 10:48 09/06/23 12:05 Height 6 ft 3 in Weight 255 lb BMI 31.9 BP 138/70 140/80 H Blood Pressure Location Lt brachial Lt brachial Position Sitting Sitting Respiration 16 Pulse 70 80 Pulse Source Pulse Oximeter Pulse Oximeter Pulse Oximetry (%) 99 96 Oxygen Delivery Method Room Air Room Air Comment Pre-Op Intake Visit Reasons: Right knee Durolane inj Allergies No Known Allergies Allergy (Verified 08/27/23 09:05) HPI Right knee Durolane inj HPI Details Patient presents for scheduled procedure. Denies any recent cough, cold, infection, fever or other significant changes in medical history since last office visit. [facility] Medical History Closed fracture of left distal fibula Cervicalgia Bilateral knee pain Chronic right hip pain Seasonal allergies Cervical spondylosis Degeneration of intervertebral disc of lumbar region Lumbar spinal stenosis Insomnia Depression with anxiety Surgical History H/O colonoscopy H/O right inguinal hernia repair Social History Alcohol intake: former Patient Tobacco Use Status: Never used Tobacco Current occupational status: retired Physical Exam Vital Signs: Last Vital Signs Pulse 70 09/06/23 10:48 Resp 16 09/06/23 10:48 BP 138/70 09/06/23 10:48 Pulse Ox 99 09/06/23 10:48 Oxygen Delivery Method Room Air 09/06/23 10:48 BMI result Body Mass Index 31.9 Office Procedures Joint Injection/Drain Joint Injection/Drain Details: The knee was visualized using fluoroscopy. A 25 gauge needle was advanced intra- articularly under fluoroscopy and placement was confirmed with Omnipaque 1-2cc 180 milligrams/mL. Following intra-articular confirmation, the prepackaged Durolane syringe containing 3 mL stablized hyaluronic acid was retrieved and administered to the joint. The patient tolerated the procedure well. Durolane Lot # [id number] Exp Date 03/01/2026 Primary Site: right knee Prep: site was prepped using sterile technique Approach Used: anteromedial Coding 66494 - Large joint (fluoro guided) Procedure code (CPT) selection complete Assessment & Plan Assessment & Plan (1) Right knee pain: Code(s): M25.561 - Pain in right knee Plan Patient is status post right knee fluoro guided intra-articular Durolane injection. Patient tolerated procedure well and was discharged home in stable condition with discharge instructions. All questions were answered. We will follow-up via telephone or in clinic to assess response to therapy. A follow-up appointment was made during today's visit. Orders: Orders FL guidance in treatment room Today M25.561 - Pain in right knee Coding Level of Care Code Procedure Only Diagnoses Right knee pain M25.561 CPT Codes Coding - 84988 Large joint: 26241 - Large joint ([id number])
[2023-09-06 12:05] VITALS: BP 140/80; PULSE 80; O2SAT 96
== END 2023-09-06 12:01 | disposition home or self-care (01) ==
LOC: HO.PMCPRC 10:43
PROVIDERS: PCP Internal Medicine; Visit Provider Internal Medicine
DX: M25.561 Pain in right knee (principal)
CPT/HCPCS: 20610; 77002

== ENCOUNTER 2023-09-24 09:07 | Outpatient (AMB) | payer MEDICARE, MEDICAID, SELFPAY ==
--- NOTE | 2023-09-24 09:08 | A.OFFVIS_ITS ---
Intake Vital Signs 09/24/23 09:15 Height 6 ft 3 in Weight 251 lb 6 oz BMI 31.4 BP 147/94 H Blood Pressure Location Lt brachial Position Sitting Pulse 88 Pulse Source Pulse Oximeter Pulse Oximetry (%) 98 Oxygen Delivery Method Room Air Intake Visit Reasons: s/p Durolane + PILL COUNT Intake Note: Darin comes in today for a pill count to oxycodone, patient should have 30 tablets and presents with 37 tablets which he last took today 09/24/23 at 7:30am. Pain today 01/08. Civil Structural Engineer Required: No Accompanied by: Self / Same As Patient Allergies No Known Allergies Allergy (Verified 09/24/23 09:16) HPI HPI Comments History of Present Illness Details Darin is a pleasant 63 years old male who returns today for his pill count. Patient is supposed to have #30 pills in his possession and has #37. This demonstrates a responsible attitude in regards to the opioid regimen. Patient reports adequate mild to moderate analgesia with no noted side effects. Denies any fever, chills, constipation, sedation, nausea, dizziness or urinary retention. Patient reports minimal relief with recent Durolane right knee injection. Continues to reports burning and aching sensations in his medial aspect of right knee. Denies any fever, instability, weakness, foot drop, locking or buckling knee, bladder or bowel dysfunction or saddle anesthesia. Past Procedures: 09/06/23: Right knee Durolane injection- 30% pain relief COUNT INCLUDES [facility] Medical History Closed fracture of left distal fibula Cervicalgia Bilateral knee pain Chronic right hip pain Seasonal allergies Cervical spondylosis Degeneration of intervertebral disc of lumbar region Lumbar spinal stenosis Insomnia Depression with anxiety Surgical History H/O colonoscopy H/O right inguinal hernia repair Social History Alcohol intake: former Patient Tobacco Use Status: Never used Tobacco Current occupational status: retired Review of Systems Const All systems reviewed & are unremarkable except as noted in HPI and below Physical Exam Vital Signs: Last Vital Signs Pulse 88 09/24/23 09:15 BP 147/94 H 09/24/23 09:15 Pulse Ox 98 09/24/23 09:15 Oxygen Delivery Method Room Air 09/24/23 09:15 BMI result Body Mass Index 31.4 On exam today: Appears afebrile. Alert and oriented. Mood and affect appropriate. Follows and participates in conversation appropriately. Respiratory effort is unlabored. No cough. Able to transition from sit to stand unassisted. Ambulates with bilaterally normal heel strike and toe off. Able to stand and walk on toes and heels. Extrem General: Yes capillary refill normal, Yes no clubbing, cyanosis or edema and Yes no calf tenderness Right lower extremity: knee (Limited ROM due to pain.) Details: tenderness Location: of the medial joint line and crepitus; no swelling, no ecchymosis and no unusual warmth Psych Appearance: grossly normal Mental Status: mental status grossly normal Speech and movement: Normal speech and movement present Affect: normal affect Attitude: cooperative Thought process: Normal thought process present Thought content: Normal thought content present, suicidality (none), no hallucinations and No Depressive thoughts present Insight: Good insight present (Psych) Judgement: Good judgement present (Psych) Assessment & Plan Assessment & Plan (1) Chronic pain syndrome: Code(s): G89.4 - Chronic pain syndrome (2) Right knee pain: Code(s): M25.561 - Pain in right knee (3) Opioid contract exists: Code(s): Z79.891 - 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 The patient reported no noted side effects. There is no evidence of misuse, abuse or diversion at this time. [employer] reviewed. Will sent next script with advanced date of 10/04/23. Scripts send for gabapentin today for right knee pain with burning and aching sensations. Side effects and precautions reviewed with patient. Recent Durolane injection provided about 30% pain relief with mild improvement in his ADLs, mobility of sleep. All questions were answered and patient is in agreement of plan. Follow up in 4 weeks for pill count and sooner if needed. Medications: New gabapentin 300 mg PO BEDTIME 30 days 30 caps 0RF pain G89.4 - Chronic pain syndrome, M25.561 - Pain in right knee Refilled oxycodone Partial Fill upon patient request. 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
[2023-09-24 09:15] VITALS: BP 147/94; PULSE 88; O2SAT 98; BMI 31.4
== END 2023-09-24 09:23 | disposition home or self-care (01) ==
PROVIDERS: PCP Internal Medicine; Visit Provider Nurse Practitioner Family
DX: G89.4 Chronic pain syndrome (principal); M25.561 Pain in right knee; Z79.891 Long term (current) use of opiate analgesic; M47.816 Spondylosis without myelopathy or radiculopathy, lumbar region; M47.812 Spondylosis without myelopathy or radiculopathy, cervical region
CPT/HCPCS: 99214

== ENCOUNTER → 2023-09-24 09:07 | Outpatient (BNVA) | payer MEDICARE, MEDICAID, SELFPAY | PROVIDERS: PCP Internal Medicine; Visit Provider Nurse Practitioner Family | DX: Z51.81 Encounter for therapeutic drug level monitoring (principal); M25.561 Pain in right knee; M47.816 Spondylosis without myelopathy or radiculopathy, lumbar region; M47.812 Spondylosis without myelopathy or radiculopathy, cervical region; Z79.891 Long term (current) use of opiate analgesic | CPT/HCPCS: 99212 ==

== ENCOUNTER 2023-10-22 08:55 | Outpatient (AMB) | payer MEDICARE, MEDICAID, SELFPAY ==
--- NOTE | 2023-10-22 09:00 | MHC.OFFVIS ---
Vital Signs 10/22/23 09:06 Height 6 ft 3 in Weight 249 lb 2 oz BMI 31.1 BP 141/78 H Blood Pressure Location Lt brachial Position Sitting Pulse 69 Pulse Source Pulse Oximeter Pulse Oximetry (%) 97 Oxygen Delivery Method Room Air Intake Visit Reasons: PILL COUNT Intake Note: Darin comes in today for a pill count to oxycodone, patient should have 36 tablets and presents with 44 tablets which he last took today 10/22/23 at 7am. Pain today 02/08. 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 Patient is supposed to have #36 pills in his possession and has #44. This demonstrates a responsible attitude in regards to the opioid regimen. Patient reports adequate mild to moderate analgesia with no noted side effects. He reports good pain relief in right knee with recent injection. Patient reports increased pain in his left knee and would like to undergo same injection for his left side. Denies any fever, chills, constipation, sedation, nausea, dizziness, urinary retention, instability, weakness, foot drop, locking or buckling knee, bladder or bowel dysfunction or saddle anesthesia. Past Procedures: 09/06/23: Right knee Durolane injection-100% pain relief [facility] Medical History Closed fracture of left distal fibula Cervicalgia Bilateral knee pain Chronic right hip pain Seasonal allergies Cervical spondylosis Degeneration of intervertebral disc of lumbar region Lumbar spinal stenosis Insomnia Depression with anxiety Surgical History H/O colonoscopy H/O right inguinal hernia repair Social History Alcohol intake: former Patient Tobacco Use Status: Never used Tobacco Current occupational status: retired Review of Systems Const All systems reviewed & are unremarkable except as noted in HPI and below Physical Exam Vital Signs: Last Vital Signs Pulse 69 10/22/23 09:06 BP 141/78 H 10/22/23 09:06 Pulse Ox 97 10/22/23 09:06 Oxygen Delivery Method Room Air 10/22/23 09:06 BMI result Body Mass Index 31.1 On exam today: Appears afebrile. Alert and oriented. Mood and affect appropriate. Follows and participates in conversation appropriately. Respiratory effort is unlabored. No cough. Able to transition from sit to stand unassisted. Ambulates with bilaterally normal heel strike and toe off. Able to stand and walk on toes and heels. Extrem General: Yes capillary refill normal, Yes no clubbing, cyanosis or edema and Yes no calf tenderness Right lower extremity: knee (Mildly limited ROM. +crepitus with flexoin.) Details: normal to inspection; no tenderness, no swelling, no ecchymosis and no unusual warmth Left lower extremity: knee (Limited ROM due to pain) Details: normal to inspection, tenderness Location: of the medial joint line and of the lateral joint line and crepitus; no swelling, no ecchymosis and no unusual warmth Psych Appearance: grossly normal Mental Status: mental status grossly normal Speech and movement: Normal speech and movement present Affect: normal affect Attitude: cooperative Thought process: Normal thought process present Thought content: Normal thought content present, suicidality (none), no hallucinations and No Depressive thoughts present Insight: Good insight present (Psych) Judgement: Good judgement present (Psych) Results Reviewed Results Reviewed: Impression: Mild dextroconvex lumbar scoliosis and moderately severe lumbar spondylosis superimposed upon 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 There are multilevel moderate to large size L3-L4 through L5-S1 intervertebral disc protrusions there is multilevel facet arthropathy. L3-4 level posterior and right paramedian-posterolateral disc protrusion with displacement of extraforaminal right L3 nerve root. Mild central canal stenosis and moderate narrowing of lateral recesses. Moderately severe right neural foraminal narrowing. L4-L5 level large posterior and right paramedian and posterolateral disc protrusion. Severe canal stenosis with severe crowding of intrathecal nerve roots. Severe right neural foraminal narrowing and moderately severe left neural foraminal narrowing. There L5-S1 moderate posterior and right paramedian slightly right posterolateral disc protrusion. The right posterior paramedian component demonstrates small peripheral annular fissuring resultant severe compression of right S1 nerve root at the right lateral recess. Small focal disc herniation at this level as possible. Moderate bilaeral narrowing of lateral recesses. Assessment & Plan Assessment & Plan (1) Chronic pain syndrome: Code(s): G89.4 - Chronic pain syndrome Category: Medical (2) Right knee pain: Code(s): M25.561 - Pain in right knee Category: Medical (3) Opioid contract exists: Code(s): Z79.891 - longterm (current) use of opiate analgesic Category: Medical (4) Lumbar spondylosis: Code(s): M47.816 - Spondylosis without myelopathy or radiculopathy, lumbar region Category: Medical (5) Cervical spondylosis: Code(s): M47.812 - Spondylosis without myelopathy or radiculopathy, cervical region Category: Medical (6) Left knee pain: Code(s): M25.562 - Pain in left knee Category: Medical Plan Patient has shown accountability for his medication regimen and the pill count was accurate. The patient reported no noted side effects. There is no evidence of misuse, abuse or diversion at this time. [employer] reviewed. Will sent next script with advanced date of 11/04/23. Continue gabapentin, monitor for any side effects. Precautions reviewed with patient. Recent Durolane injection for right knee provided him complete pain relief with significant improvement in his ADLs, mobility of sleep. This is reflected in his decrease intake in opioid medication. For left knee pain, will schedule Durolane injection with local and Fluoroscopy guidance. Expectations, risks and benefits were reviewed. Patient is aware he will be contacted to schedule this procedure. All questions were answered and patient is in agreement of plan. Follow up in 4-5 weeks for pill count and sooner if needed. Medications: Refilled oxycodone Partial Fill upon patient request. 5 mg PO TID 30 days PRN 90 tabs 0RF pain, severe M47.27 - Other spondylosis with radiculopathy, lumbosacral region, M54.2 - Cervicalgia, Z79.891 - longterm (current) use of opiate analgesic gabapentin 300 mg PO BEDTIME 30 days 30 caps 0RF pain G89.4 - Chronic pain syndrome, M25.561 - Pain in right knee
[2023-10-22 09:06] VITALS: BP 141/78; PULSE 69; O2SAT 97; BMI 31.1
== END 2023-10-22 09:27 | disposition home or self-care (01) ==
PROVIDERS: PCP Internal Medicine; Visit Provider Nurse Practitioner Family
DX: G89.4 Chronic pain syndrome (principal); M25.561 Pain in right knee; M47.816 Spondylosis without myelopathy or radiculopathy, lumbar region; Z79.891 Long term (current) use of opiate analgesic; M47.812 Spondylosis without myelopathy or radiculopathy, cervical region; M25.562 Pain in left knee
CPT/HCPCS: 99214

== ENCOUNTER → 2023-10-22 08:55 | Outpatient (BNVA) | payer MEDICARE, MEDICAID, SELFPAY | PROVIDERS: PCP Internal Medicine; Visit Provider Nurse Practitioner Family | DX: G89.4 Chronic pain syndrome (principal); M25.561 Pain in right knee; M25.562 Pain in left knee; M47.812 Spondylosis without myelopathy or radiculopathy, cervical region; M47.816 Spondylosis without myelopathy or radiculopathy, lumbar region; Z79.891 Long term (current) use of opiate analgesic | CPT/HCPCS: 99212 ==

== ENCOUNTER → 2023-11-07 09:09 | Outpatient (BNVA) | payer MEDICARE, MEDICAID, SELFPAY | PROVIDERS: PCP Internal Medicine; Visit Provider Nurse Practitioner Family ==

== ENCOUNTER 2023-11-29 06:11 | Outpatient (REF) | payer MEDICARE, MEDICAID, SELFPAY ==
--- NOTE | ~2023-11-29 | FL_ITS ---
EXAMINATION: XR FLUOROSCOPY WITH IMAGES CLINICAL INFORMATION: Left knee pain. COMPARISON: None available. TECHNIQUE: Fluoroscopy Supervised By: Dr. Bonifacio Cuadra. Fluoroscopy Time: 0.1 minute. Cumulative Dose: 0.325 mGy. DAP: 0.65162 Gycm2. Images: 2. FINDINGS: Intraoperative fluoroscopy and spot films were performed during a procedure in the OR. Anterior approach needle is seen in the knee joint. Images are not labeled left or right. Contrast is present in the joint. Please see Dr. Bonifacio Cuadra's report for complete details. FL/FL guidance in treatment room IMPRESSION: Intraoperative fluoroscopy and spot films were obtained. Please see Dr. Bonifacio Cuadra's report for complete details.
== END 2023-11-29 06:12 | disposition home or self-care (01) ==
LOC: CF 06:11
PROVIDERS: Visit Provider Internal Medicine
DX: M17.0 Bilateral primary osteoarthritis of knee (principal)
CPT/HCPCS: 20610; Q9967

== ENCOUNTER 2023-11-29 09:08 | Outpatient (AMB) | payer MEDICARE, MEDICAID, SELFPAY ==
--- NOTE | 2023-11-29 09:10 | A.OFFVIS_ITS ---
Vital Signs 11/29/23 09:57 11/29/23 09:57 Height 6 ft 3 in Weight 245 lb BMI 30.6 BP 132/84 136/74 Blood Pressure Location Lt brachial Lt brachial Position Sitting Sitting Respiration 18 18 Pulse 86 72 Pulse Source Pulse Oximeter Pulse Oximeter Pulse Oximetry (%) 96 97 Oxygen Delivery Method Room Air Room Air Comment Pre-Op Post-Op Intake Visit Reasons: left knee Durolane + pill count Allergies No Known Allergies Allergy (Verified 11/07/23 09:14) HPI HPI left knee Durolane + pill count: Details: Patient presents for scheduled procedure. Denies any recent cough, cold, infection, fever or other significant changes in medical history since last office visit. [facility] Medical History Closed fracture of left distal fibula Cervicalgia Bilateral knee pain Chronic right hip pain Seasonal allergies Cervical spondylosis Degeneration of intervertebral disc of lumbar region Lumbar spinal stenosis Insomnia Depression with anxiety Surgical History H/O colonoscopy H/O right inguinal hernia repair Social History Alcohol intake: former Patient Tobacco Use Status: Never used Tobacco Current occupational status: retired Office Procedures Joint Injection/Drain Joint Injection/Drain Details: The knee was visualized using fluoroscopy. A 25 gauge needle was advanced intra- articularly under fluoroscopy and placement was confirmed with Omnipaque 1-2 cc 180 milligrams/mL. Following intra-articular confirmation, the prepackaged Durolane syringe containing 3 mL hyaluronic acid was retrieved and administered to the joint. The patient tolerated the procedure well. Durolane Lot # [id number] Exp Date 05/01/2026 Coding 37402 - Large joint Additional procedure code (CPT) needed Assessment & Plan Assessment & Plan (1) Left knee pain: Code(s): M25.562 - Pain in left knee Category: Medical (2) Bilateral primary osteoarthritis of knee: Code(s): M17.0 - Bilateral primary osteoarthritis of knee Category: Medical Plan Patient is status post left knee durolane injection under fluoroscopy. Patient tolerated procedure well and was discharged home in stable condition with discharge instructions. All questions were answered. We will follow-up via telephone or in clinic to assess response to therapy. A devi bhagat-up appointment was made during today's visit. Orders: Orders FL guidance in treatment room Today M25.562 - Pain in left knee Coding Level of Care Code Procedure Only Diagnoses Left knee pain M25.562 Bilateral primary osteoarthritis of knee M17.0 CPT Codes Coding - 64993 Large joint: 04705 - Large joint ([id number])
[2023-11-29 09:57] VITALS: BP 132/84; BP 136/74; PULSE 72; PULSE 86; RESP 18; O2SAT 96; O2SAT 97; BMI 30.6
== END 2023-11-29 09:51 | disposition home or self-care (01) ==
LOC: HO.PMCPRC 09:08
PROVIDERS: Family Provider Internal Medicine; PCP Internal Medicine; Visit Provider Internal Medicine
DX: M25.562 Pain in left knee (principal); M17.0 Bilateral primary osteoarthritis of knee
CPT/HCPCS: 20610; 77002

== ENCOUNTER 2023-12-27 08:57 | Outpatient (AMB) | payer MEDICARE, MEDICAID, SELFPAY ==
--- NOTE | 2023-12-27 09:07 | MHC.OFFVIS ---
Vital Signs 12/27/23 09:26 Height 6 ft 3 in Weight 245 lb 4 oz BMI 30.7 BP 150/73 H Blood Pressure Location Lt brachial Position Sitting Pulse 77 Pulse Source Pulse Oximeter Pulse Oximetry (%) 97 Oxygen Delivery Method Room Air Intake Visit Reasons: s/p left knee Durolane + pill count Intake Note: Darin comes in today for a pill count to oxycodone, patient should have 30 tablets and presents with 39 tablets which he last took today 12/27/23 at 6:30am. Pain today 02/08 Avian Keeper Required: No Accompanied by: Self / Same As Patient Allergies No Known Allergies Allergy (Verified 12/27/23 09:27) HPI Comments Details: Darin is a pleasant 63 years old male who returns today for his pill count. Patient is supposed to have #30 pills in his possession and has #39. This demonstrates a responsible attitude in regards to the opioid regimen. Patient reports mild analgesia with no noted side effects. He reports partial pain relief with recent left knee Durolane injection. He reports exacerbation of low back pain with radiation into his left hip and left knee after recent heavy lifting at home. Denies groin pain, bladder or bowel dysfunction or saddle anesthesia. Denies any fever, chills, constipation, sedation, nausea, dizziness, urinary retention, instability, weakness, foot drop, locking or buckling knee, bladder or bowel dysfunction or saddle anesthesia. Patient also reports his 31 years old son due to illness 3 weeks ago and also lost his dog who was hit by a car a week ago. He is scheduled to establish care with new Mental Therapist for depression and grieving. Patient reports good family support and states his daughter with children recently moved in with him. Denies any recent cough, cold, infection, fever, any significant changes in her medical history, medications or recent hospitalizations. Past Procedures: 11/29/23: Left knee Durolane injection-30% pain relief 09/06/23: Right knee Durolane injection-100% pain relief [facility] Medical History Closed fracture of left distal fibula Cervicalgia Bilateral knee pain Chronic right hip pain Seasonal allergies Cervical spondylosis Degeneration of intervertebral disc of lumbar region Lumbar spinal stenosis Insomnia Depression with anxiety Surgical History H/O colonoscopy H/O right inguinal hernia repair Social History Alcohol intake: former Patient Tobacco Use Status: Never used Tobacco Current occupational status: retired Review of Systems Const All systems reviewed & are unremarkable except as noted in HPI and below Physical Exam Vital Signs: Last Vital Signs Pulse 77 12/27/23 09:26 BP 150/73 H 12/27/23 09:26 Pulse Ox 97 12/27/23 09:26 Oxygen Delivery Method Room Air 12/27/23 09:26 BMI result Body Mass Index 30.7 On exam today: Appears afebrile. Alert and oriented. Mood and affect appropriate. Follows and participates in conversation appropriately. Respiratory effort is unlabored. No cough. Able to transition from sit to stand unassisted. Ambulates with bilaterally normal heel strike and toe off. Able to stand and walk on toes and heels. General: Yes no CVA tenderness Back/Spine/Pelvis Back: no CVA tenderness Cervical Spine: cervical ROM normal, cervical muscular tenderness, pain with cervical ROM and No Cervical spine tenderness Thoracic/Lumbar Spine: thoracic and lumbar spine normal to inspection, Lasegue's sign positive on the right and localized, pain with thoraco-lumbar ROM, paraspinal muscle tenderness on the right greater than left, thoraco-lumbar ROM limited, No thoracic spinal tenderness, lumbar spinal tenderness at L4 and at L5 and straight leg raise positive right at 50 degrees Sacroiliac joints: bilaterally nontender Extrem General: Yes capillary refill normal, Yes no clubbing, cyanosis or edema and Yes no calf tenderness Left lower extremity: knee (Limited ROM due to pain) Details: normal to inspection, tenderness Location: of the medial joint line and of the lateral joint line and crepitus; no swelling, no ecchymosis and no unusual warmth Psych Appearance: grossly normal Mental Status: mental status grossly normal Speech and movement: Normal speech and movement present Affect: normal affect Attitude: cooperative Thought process: Normal thought process present Thought content: Normal thought content present, suicidality (none), no hallucinations and No Depressive thoughts present Insight: Good insight present (Psych) Judgement: Good judgement present (Psych) Results Reviewed Results Reviewed: Impression: Mild dextroconvex lumbar scoliosis and moderately severe lumbar spondylosis superimposed upon 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 There are multilevel moderate to large size L3-L4 through L5-S1 intervertebral disc protrusions there is multilevel facet arthropathy. L3-4 level posterior and right paramedian-posterolateral disc protrusion with displacement of extraforaminal right L3 nerve root. Mild central canal stenosis and moderate narrowing of lateral recesses. Moderately severe right neural foraminal narrowing. L4-L5 level large posterior and right paramedian and posterolateral disc protrusion. Severe canal stenosis with severe crowding of intrathecal nerve roots. Severe right neural foraminal narrowing and moderately severe left neural foraminal narrowing. There L5-S1 moderate posterior and right paramedian slightly right posterolateral disc protrusion. The right posterior paramedian component demonstrates small peripheral annular fissuring resultant severe compression of right S1 nerve root at the right lateral recess. Small focal disc herniation at this level as possible. Moderate bilaeral narrowing of lateral recesses. Assessment & Plan Assessment & Plan (1) Chronic pain syndrome: Code(s): G89.4 - Chronic pain syndrome Category: Medical (2) Right knee pain: Code(s): M25.561 - Pain in right knee Category: Medical (3) Opioid contract exists: Code(s): Z79.891 - care home (current) use of opiate analgesic Category: Medical (4) Lumbar spondylosis: Code(s): M47.816 - Spondylosis without myelopathy or radiculopathy, lumbar region Category: Medical (5) Cervical spondylosis: Code(s): M47.812 - Spondylosis without myelopathy or radiculopathy, cervical region Category: Medical (6) Left knee pain: Code(s): M25.562 - Pain in left knee Category: Medical Plan Patient has shown accountability for his medication regimen and the pill count was accurate. The patient reported no noted side effects. There is no evidence of misuse, abuse or diversion at this time. [employer] reviewed. Will sent next script with advanced date of 01/05/24. Continue gabapentin, monitor for any side effects. Precautions reviewed with patient. Recent Durolane injection for left knee provided him partial pain relief but continues to have good pain relief from right knee injection. Previously discussed right L4-L5 TFESI for radicular symptoms, patient hesitant towards back injections at this time. Emotional support and active listing provided as patient is grieving the loss of his son and dog. Patient reports he has appropriate family and social support and establishing care with mental therapist next Sunday. All questions were answered and patient is in agreement of plan. Follow up in 4 weeks for pill count and sooner if needed. Medications: Refilled lidocaine 5% 1 patch topical DAILY 30 days 30 ea 3RF pain M25.561 - Pain in right knee oxycodone Partial Fill upon patient request. 5 mg PO TID 30 days PRN 90 tabs 0RF pain, severe M47.27 - Other spondylosis with radiculopathy, lumbosacral region, M54.2 - Cervicalgia, Z79.891 - care home (current) use of opiate analgesic Coding Level of Care Code Est Pt Level 4 (79525) Diagnoses Chronic pain syndrome G89.4 Right knee pain M25.561 Opioid contract exists Z79.891 Lumbar spondylosis M47.816 Cervical spondylosis M47.812 Left knee pain M25.562
[2023-12-27 09:26] VITALS: BP 150/73; PULSE 77; O2SAT 97; BMI 30.7
== END 2023-12-27 09:52 | disposition home or self-care (01) ==
PROVIDERS: PCP Internal Medicine; Visit Provider Nurse Practitioner Family
DX: G89.4 Chronic pain syndrome (principal); M25.561 Pain in right knee; Z79.891 Long term (current) use of opiate analgesic; M47.816 Spondylosis without myelopathy or radiculopathy, lumbar region; M47.812 Spondylosis without myelopathy or radiculopathy, cervical region; M25.562 Pain in left knee
CPT/HCPCS: 99214

== ENCOUNTER → 2023-12-27 08:57 | Outpatient (BNVA) | payer MEDICARE, MEDICAID, SELFPAY | PROVIDERS: PCP Internal Medicine; Visit Provider Nurse Practitioner Family | DX: M25.561 Pain in right knee (principal); M25.562 Pain in left knee; G89.4 Chronic pain syndrome; M47.816 Spondylosis without myelopathy or radiculopathy, lumbar region; M47.812 Spondylosis without myelopathy or radiculopathy, cervical region; Z79.891 Long term (current) use of opiate analgesic | CPT/HCPCS: 99212 ==

== ENCOUNTER 2024-01-31 09:29 | Outpatient (AMB) | payer MEDICARE, MEDICAID, SELFPAY ==
--- NOTE | 2024-01-31 09:37 | A.OFFVIS_ITS ---
Vital Signs 01/31/24 09:43 Height 6 ft 3 in Weight 245 lb 4 oz BMI 30.7 BP 145/78 H Blood Pressure Location Lt brachial Position Sitting Pulse 60 Pulse Source Pulse Oximeter Pulse Oximetry (%) 97 Oxygen Delivery Method Room Air Intake Visit Reasons: PILL COUNT Intake Note: Darin comes in today for a pill count to oxycodone, patient should have 21 tablets and presents with 27 tablets which he last took today 01/31/24 at 8am. 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 Patient is supposed to have #21 pills in his possession and has #27. This demonstrates a responsible attitude in regards to the opioid regimen. Patient r eports adequate analgesia with no noted side effects. He reports partial pain relief with recent left knee Durolane injection. He reports exacerbation of low back pain with radiation into his right hip and right knee with driving, walking or lifting. Patient declined back injections for axial or radicular symptoms at this time. Reports bilateral groin pain and is in the process of undergoing US to rule out hernia. Denies any bladder or bowel dysfunction or saddle anesthesia. Denies any fever, chills, constipation, sedation, nausea, dizziness, urinary retention, instability, weakness, foot drop, locking or buckling knee, bladder or bowel dysfunction or saddle anesthesia. Past Procedures: 11/29/23: Left knee Durolane injection-30% pain relief 09/06/23: Right knee Durolane injection-100% pain relief [facility] Medical History Closed fracture of left distal fibula Cervicalgia Bilateral knee pain Chronic right hip pain Seasonal allergies Cervical spondylosis Degeneration of intervertebral disc of lumbar region Lumbar spinal stenosis Insomnia Depression with anxiety Surgical History H/O colonoscopy H/O right inguinal hernia repair Social History Alcohol intake: former Patient Tobacco Use Status: Never used Tobacco Current occupational status: retired Physical Exam On exam today: Appears afebrile. Alert and oriented. Mood and affect appropriate. Follows and participates in conversation appropriately. Respiratory effort is unlabored. No cough. Able to transition from sit to stand unassisted. Ambulates with bilaterally normal heel strike and toe off. Able to stand and walk on toes and heels. General: Yes no CVA tenderness Back/Spine/Pelvis Back: no CVA tenderness Cervical Spine: cervical ROM normal, cervical muscular tenderness, pain with cervical ROM and No Cervical spine tenderness Thoracic/Lumbar Spine: thoracic and lumbar spine normal to inspection, Lasegue's sign positive on the right and localized, pain with thoraco-lumbar ROM, paraspinal muscle tenderness on the right greater than left, thoraco-lumbar ROM limited, No thoracic spinal tenderness, lumbar spinal tenderness at L4 and at L5 and straight leg raise positive right at 50 degrees Sacroiliac joints: bilaterally nontender Extrem General: Yes capillary refill normal, Yes no clubbing, cyanosis or edema and Yes no calf tenderness Psych Appearance: grossly normal Mental Status: mental status grossly normal Speech and movement: Normal speech and movement present Affect: normal affect Attitude: cooperative Thought process: Normal thought process present Thought content: Normal thought content present, suicidality (none), no hallucinations and No Depressive thoughts present Insight: Good insight present (Psych) Judgement: Good judgement present (Psych) Results Reviewed Results Reviewed: Impression: Mild dextroconvex lumbar scoliosis and moderately severe lumbar spondylosis superimposed upon 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 There are multilevel moderate to large size L3-L4 through L5-S1 intervertebral disc protrusions there is multilevel facet arthropathy. L3-4 level posterior and right paramedian-posterolateral disc protrusion with displacement of extraforaminal right L3 nerve root. Mild central canal stenosis and moderate narrowing of lateral recesses. Moderately severe right neural foraminal narrowing. L4-L5 level large posterior and right paramedian and posterolateral disc protrusion. Severe canal stenosis with severe crowding of intrathecal nerve roots. Severe right neural foraminal narrowing and moderately severe left neural foraminal narrowing. There L5-S1 moderate posterior and right paramedian slightly right posterolateral disc protrusion. The right posterior paramedian component demonstrates small peripheral annular fissuring resultant severe compression of right S1 nerve root at the right lateral recess. Small focal disc herniation at this level as possible. Moderate bilaeral narrowing of lat eral recesses. Assessment & Plan Assessment & Plan (1) Chronic pain syndrome: Code(s): G89.4 - Chronic pain syndrome Category: Medical (2) Right knee pain: Code(s): M25.561 - Pain in right knee Category: Medical (3) Opioid contract exists: Code(s): Z79.891 - correction (current) use of opiate analgesic Category: Medical (4) Lumbar spondylosis: Code(s): M47.816 - Spondylosis without myelopathy or radiculopathy, lumbar region Category: Medical (5) Bilateral primary osteoarthritis of knee: Code(s): M17.0 - Bilateral primary osteoarthritis of knee Category: Medical (6) Greater trochanteric bursitis of right hip: Code(s): M70.61 - Trochanteric bursitis, right hip Category: Medical (7) Spondylosis of lumbosacral spine with radiculopathy: Code(s): M47.27 - Other spondylosis with radiculopathy, lumbosacral region Category: Medical Plan Patient has shown accountability for his medication regimen and the pill count was accurate. The patient reported no noted side effects. There is no evidence of misuse, abuse or diversion at this time. [employer] reviewed. Will sent next script with advanced date of 02/05/24. Continue gabapentin, monitor for any side effects. Precautions reviewed with patient. We reviewed interventional treatments for axial and radicular low back pain, including lumbar MBBs and right L4-L5 TFESI for radicular symptoms, patient hesitant towards back injections at this time. All questions were answered and patient is in agreement of plan. Follow up in 4- 5 weeks for pill count and sooner if needed. Medications: Refilled oxycodone Partial Fill upon patient request. 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
[2024-01-31 09:43] VITALS: BP 145/78; PULSE 60; O2SAT 97; BMI 30.7
== END 2024-01-31 09:50 | disposition home or self-care (01) ==
PROVIDERS: PCP Internal Medicine; Visit Provider Nurse Practitioner Family
DX: G89.4 Chronic pain syndrome (principal); M25.561 Pain in right knee; M47.816 Spondylosis without myelopathy or radiculopathy, lumbar region; Z79.891 Long term (current) use of opiate analgesic; M17.0 Bilateral primary osteoarthritis of knee; M70.61 Trochanteric bursitis, right hip; M47.27 Other spondylosis with radiculopathy, lumbosacral region
CPT/HCPCS: 99214

== ENCOUNTER → 2024-01-31 09:29 | Outpatient (BNVA) | payer MEDICARE, MEDICAID, SELFPAY | PROVIDERS: PCP Internal Medicine; Visit Provider Nurse Practitioner Family | DX: G89.4 Chronic pain syndrome (principal); M47.816 Spondylosis without myelopathy or radiculopathy, lumbar region; M17.0 Bilateral primary osteoarthritis of knee; M70.61 Trochanteric bursitis, right hip; M47.27 Other spondylosis with radiculopathy, lumbosacral region; M54.2 Cervicalgia; Z51.81 Encounter for therapeutic drug level monitoring; Z79.891 Long term (current) use of opiate analgesic | CPT/HCPCS: 99212 ==

== ENCOUNTER 2024-03-06 10:53 | Outpatient (AMB) | payer MEDICARE, MEDICAID, SELFPAY ==
--- NOTE | 2024-03-06 10:59 | A.OFFVIS_ITS ---
Vital Signs 03/06/24 11:05 Height 6 ft 3 in Weight 252 lb 8 oz BMI 31.6 BP 176/96 H Blood Pressure Location Lt brachial Position Sitting Pulse 66 Pulse Source Pulse Oximeter Pulse Oximetry (%) 98 Oxygen Delivery Method Room Air Intake Visit Reasons: Pill Count Intake Note: Darin comes in today for a pill count to oxycodone, patient should have 9 tablets and presents with 19 tablets which he last took today 03/06/24 at 9 am. 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 Patient is supposed to have #9 pills in his possession and has #19. This demonstrates a responsible attitude in regards to the opioid regimen. Patient r eports adequate analgesia without noted side effects. He reports current opioid regime allows him to be more functional and spent quality time with his grandchildren and family and be less symptomatic. Denies any fever, chills, constipation, sedation, nausea, dizziness, urinary retention, instability, weakness, foot drop, locking or buckling knee, bladder or bowel dysfunction or saddle anesthesia. Past Procedures: 11/29/23: Left knee Durolane injection-30% pain relief 09/06/23: Right knee Durolane injection-100% pain relief [facility] Medical History Closed fracture of left distal fibula Cervicalgia Bilateral knee pain Chronic right hip pain Seasonal allergies Cervical spondylosis Degeneration of intervertebral disc of lumbar region Lumbar spinal stenosis Insomnia Depression with anxiety Surgical History H/O colonoscopy H/O right inguinal hernia repair Social History Alcohol intake: former Patient Tobacco Use Status: Never used Tobacco Current occupational status: retired Review of Systems Const All systems reviewed & are unremarkable except as noted in HPI and below Physical Exam On exam today: Appears afebrile. Alert and oriented. Mood and affect appropriate. Follows and participates in conversation appropriately. Respiratory effort is unlabored. No cough. Able to transition from sit to stand unassisted. Ambulates with bilaterally normal heel strike and toe off. Able to stand and walk on toes and heels. Back/Spine/Pelvis Cervical Spine: cervical ROM normal, cervical muscular tenderness and No Cervical spine tenderness Thoracic/Lumbar Spine: thoracic and lumbar spine normal to inspection, Lasegue's sign negative, pain with thoraco-lumbar ROM, paraspinal muscle tenderness on the right greater than left, thoraco-lumbar ROM limited, No thoracic spinal tenderness, lumbar spinal tenderness at L4 and at L5 and straight leg raise positive right at 50 degrees Sacroiliac joints: bilaterally nontender Extrem General: Yes capillary refill normal, Yes no clubbing, cyanosis or edema and Yes no calf tenderness Psych Appearance: grossly normal Mental Status: mental status grossly normal Speech and movement: Normal speech and movement present Affect: normal affect Attitude: cooperative Thought process: Normal thought process present Thought content: Normal thought content present, suicidality (none), no hallucinations and Depressive thoughts present Insight: Good insight present (Psych) Judgement: Good judgement present (Psych) Results Reviewed Results Reviewed: Impression: Mild dextroconvex lumbar scoliosis and moderately severe lumbar spondylosis superimposed upon 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 There are multilevel moderate to large size L3-L4 through L5-S1 intervertebral disc protrusions there is multilevel facet arthropathy. L3-4 level posterior and right paramedian-posterolateral disc protrusion with displacement of extraforaminal right L3 nerve root. Mild central canal stenosis and moderate narrowing of lateral recesses. Moderately severe right neural foraminal narrowing. L4-L5 level large posterior and right paramedian and posterolateral disc protrusion. Severe canal stenosis with severe crowding of intrathecal nerve roots. Severe right neural foraminal narrowing and moderately severe left neural foraminal narrowing. There L5-S1 moderate posterior and right paramedian slightly right posterolateral disc protrusion. The right posterior paramedian component demonstrates small peripheral annular fissuring resultant severe compression of right S1 nerve root at the right lateral recess. Small focal disc herniation at this level as possible. Moderate bilaeral narrowing of lateral recesses. 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 analgesic Category: Medical (4) Lumbar spondylosis: Code(s): M47.816 - Spondylosis without myelopathy or radiculopathy, lumbar region Category: Medical (5) Bilateral primary osteoarthritis of knee: Code(s): M17.0 - Bilateral primary osteoarthritis of knee Category: Medical (6) Degeneration of intervertebral disc of lumbar region: Code(s): M51.36 - Other intervertebral disc degeneration, lumbar region Category: Medical (7) Cervical spondylosis: Code(s): M47.812 - Spondylosis without myelopathy or radiculopathy, cervical region Category: Medical Plan Patient has shown accountability for his medication regimen and the pill count was accurate. The patient reported no noted side effects. There is no evidence of misuse, abuse or diversion at this time. [employer] reviewed. Will sent next script with advanced date of 03/11/24. Continue gabapentin, monitor for any side effects. Side effects and precautions reviewed with patient. All questions were answered and patient is in agreement of plan. Follow up in 4- 5 weeks for pill count and sooner if needed. Medications: Refilled oxycodone Partial Fill upon patient request. 5 mg PO TID 30 days PRN 90 tabs 0RF pain (scale score 7-10) M17.0 - Bilateral primary osteoarthritis of knee, M47.812 - Spondylosis without myelopathy or radiculopathy, cervical region, M51.36 - Other intervertebral disc degeneration, lumbar region, Z79.891 - assisted (current) use of opiate analgesic Coding Level of Care Code Est Pt Level 4 (93452) Complex EM visit Add On G2211 Diagnoses Chronic pain syndrome G89.4 Right knee pain M25.561 Opioid contract exists Z79.891 Lumbar spondylosis M47.816 Bilateral primary osteoarthritis of knee M17.0 Degeneration of intervertebral disc of lumbar region M51.36 Cervical spondylosis M47.812
[2024-03-06 11:05] VITALS: BP 176/96; PULSE 66; O2SAT 98; BMI 31.6
== END 2024-03-06 11:11 | disposition home or self-care (01) ==
PROVIDERS: PCP Internal Medicine; Visit Provider Nurse Practitioner Family
DX: G89.4 Chronic pain syndrome (principal); M25.561 Pain in right knee; Z79.891 Long term (current) use of opiate analgesic; M47.816 Spondylosis without myelopathy or radiculopathy, lumbar region; M17.0 Bilateral primary osteoarthritis of knee; M51.36 Other intervertebral disc degeneration, lumbar region; M47.812 Spondylosis without myelopathy or radiculopathy, cervical region
CPT/HCPCS: 99214; G2211

== ENCOUNTER → 2024-03-06 10:53 | Outpatient (BNVA) | payer MEDICARE, MEDICAID, SELFPAY | PROVIDERS: PCP Internal Medicine; Visit Provider Nurse Practitioner Family | DX: M17.0 Bilateral primary osteoarthritis of knee (principal); G89.4 Chronic pain syndrome; M47.816 Spondylosis without myelopathy or radiculopathy, lumbar region; M51.36 Other intervertebral disc degeneration, lumbar region; M47.812 Spondylosis without myelopathy or radiculopathy, cervical region; Z51.81 Encounter for therapeutic drug level monitoring; Z79.891 Long term (current) use of opiate analgesic | CPT/HCPCS: 99212 ==

== ENCOUNTER 2024-04-01 08:04 | Day surgery (SDC) | payer MEDICARE, MEDICAID, SELFPAY ==
--- NOTE | 2024-03-31 13:09 | HO.ANESPROP2 ---
Documented by User: Tess Dutton NP 03/31/24 13:10 HPI - Anesthesia Eval Consult details Narrative: 63yo M for Colonoscopy PMFSH Active Problems Active Problems: All Active Problems Bilateral primary osteoarthritis of knee (Acute) Greater trochanteric bursitis of right hip (Acute) Right knee pain (Acute) Cervicalgia (Acute) Cervical spondylosis (Acute) Closed left ankle fracture (Acute) Chronic pain syndrome (Acute) Degeneration of intervertebral disc of lumbar region (Acute) Insomnia (Acute) Depression with anxiety (Acute) Lumbar spondylosis (Acute) Left knee pain (Acute) Opioid contract exists (Acute) Left hand pain (Acute) Myofascial pain (Acute) Spondylosis of lumbosacral spine with radiculopathy (Acute) Past Medical History Medical History Closed fracture of left distal fibula Cervicalgia Bilateral knee pain Chronic right hip pain Seasonal allergies Cervical spondylosis Degeneration of intervertebral disc of lumbar region Lumbar spinal stenosis Insomnia Depression with anxiety Surgical History Surgical History H/O colonoscopy H/O right inguinal hernia repair Social History Social History Alcohol intake: former Patient Tobacco Use Status: Former Tobacco user Use of substances other than those prescribed or required for medical reasons: No Advance Directives: No Advance Directives Information Provided: Yes Current occupational status: retired Meds Allergies Allergy/AdvReac Type Severity Reaction Status Date / Time No Known Allergies Allergy Verified 04/01/24 08:39 Home Medications ?Medication ?Instructions ?Recorded ?Confirmed ?Last Taken ?Type loratadine 10 mg tablet 10 mg PO DAILY 09/28/20 04/01/24 Unknown History tizanidine 4 mg tablet 4 mg PO Q6-8H PRN muscle spasm 09/28/20 04/01/24 Unknown History trazodone 50 mg tablet 50 mg PO BEDTIME 01/07/21 04/01/24 Unknown History fluticasone propionate 50 spray intranasal 02/13/22 10/10/22 Unknown History mcg/actuation nasal spray,suspension alfuzosin 10 mg tablet,extended 10 mg PO DAILY 04/11/22 04/01/24 Unknown History release 24 hr finasteride 5 mg tablet 5 mg PO BEDTIME 04/11/22 04/01/24 Unknown History amlodipine 2.5 mg tablet 2.5 mg PO DAILY 11/07/22 04/01/24 Unknown History sertraline 50 mg tablet 50 mg PO DAILY 11/07/22 04/01/24 Unknown History Assessment and Plan Assessment Anesthesia Assessment: Chart Reviewed Documented by User: Indira Scanlon MD 04/01/24 11:36 PMFSH Past Medical History Medical History Closed fracture of left distal fibula Cervicalgia Bilateral knee pain Chronic right hip pain Seasonal allergies Cervical spondylosis Degeneration of intervertebral disc of lumbar region Lumbar spinal stenosis Insomnia Depression with anxiety Family History Family history of problems with anesthesia: No Surgical History Surgical History H/O colonoscopy H/O right inguinal hernia repair History of Problems with Anesthesia: No Social History Social History Alcohol intake: former Patient Tobacco Use Status: Former Tobacco user Use of substances other than those prescribed or required for medical reasons: No Advance Directives: No Advance Directives Information Provided: Yes Current occupational status: retired [employer] Allergies Allergy/AdvReac Type Severity Reaction Status Date / Time No Known Allergies Allergy Verified 04/01/24 08:39 Home Medications ?Medication ?Instructions ?Recorded ?Confirmed ?Last Taken ?Type loratadine 10 mg tablet 10 mg PO DAILY 09/28/20 04/01/24 Unknown History tizanidine 4 mg tablet 4 mg PO Q6-8H PRN muscle spasm 09/28/20 04/01/24 Unknown History trazodone 50 mg tablet 50 mg PO BEDTIME 01/07/21 04/01/24 Unknown History fluticasone propionate 50 spray intranasal 02/13/22 10/10/22 Unknown History mcg/actuation nasal spray,suspension alfuzosin 10 mg tablet,extended 10 mg PO DAILY 04/11/22 04/01/24 Unknown History release 24 hr finasteride 5 mg tablet 5 mg PO BEDTIME 04/11/22 04/01/24 Unknown History amlodipine 2.5 mg tablet 2.5 mg PO DAILY 11/07/22 04/01/24 Unknown History sertraline 50 mg tablet 50 mg PO DAILY 11/07/22 04/01/24 Unknown History Exam Airway Mallampati Class: II TM Dist: <=3cm Neck ROM: Limited Loose/Missing/Broken Teeth: Yes Heart: rrr Lungs: cta Assessment and Plan Assessment Anesthesia Assessment: Anesthesia Plan Discussed Final Anesthetic Review Family History of Problems with Anesthesia: No History of Problems with Anesthesia: No NPO: Yes ASA Class: III Final Preanesthetic Review: No Changes in Pt Med Stat, Meds/Allgs Chart Reviewed, Consent Obtained/Reviewed and Anes Risks/Benef Reviewed Patient Risk: Intermediate Procedure Risk: Low Anesthetic Plan Anesthetic Plan: MAC: Disposition: Standard PACU
[2024-04-01 08:46] VITALS: BMI 34.3
[2024-04-01 09:03] VITALS: BP 158/89; PULSE 63; RESP 16; TEMP 36.6; O2SAT 97
[2024-04-01] MEDS: Lactated Ringers 1,000 ML 100 ML IVCONT (09:13)
--- NOTE | 2024-04-01 09:16 | P.HPSUR_ITS ---
Pre-Procedural Eval Section A - 24 Hr Update-Section A only Date of Service: 04/01/24 Section B - Complete if H&P > 30 days Chief Complaint: screening Relevant Family History (Specify if Yes): No Relevant Social History: None Present Medications: see Short Stay Collaborative assessment Medical History: Significant History (Closed fracture of left distal fibula Cervicalgia Bilateral knee pain Chronic right hip pain Seasonal allergies Cervical spondylosis Degeneration of intervertebral disc of lumbar region Lumbar spinal stenosis Insomnia Depression with anxiety) History of Previous Operations: Relevant previous surgery/procedure and date(s) ( H/O colonoscopy H/O right inguinal hernia repair) Allergies: Allergies Allergy/AdvReac Type Severity Reaction Status Date / Time No Known Allergies Allergy Verified 04/01/24 08:39 Review of Systems Sugical H&P ROS: Negative: Constitution, Cardiovascular, Respiratory, Neurological, Psychiatric, Hem-Onc, Allergic/Immunologic, Gastrointestinal, Genitourinary, Musculoskeletal, Integumentary, Endocrine and Eye s/Ears/Nose/Throat Exam Surgical H&P Exam: Normal: HEENT, Normal: Heart, Normal: Lungs, Normal: Extremities, Normal: Abdomen, Normal: Skin and Normal: Neurological Plan Diagnosis/Plan: Unchanged I have reviewed the history and physical and performed a pertinent physical examination on my patient. No changes have occurred unless specified. Time Spent With Patient Time: Total time managing care of this patient today ____ minutes.
--- NOTE | 2024-04-01 12:48 | HO.OPN-COLON ---
Colonoscopy Operative Note Operative Note Date of Service: 04/01/24 Narrative: Operative Information Procedure Description: Colonoscopy Indication: Screening Anesthesia: MAC COLONOSCOPY Instrument: Olympus variable stiffness ADULT scope 190L Colonoscopy Monitoring: Vital signs and clinical assessment, continuous EKG monitoring, Pulse oximetry, Carbon Dioxide monitoring and blood pressure monitoring were done throughout the procedure. Colon withdrawal time was 15 minutes. Procedure: The patient was placed in the left lateral decubitis position and pre-procedure medications were administered. After a digital rectal examination of the ano-rectum, the video colonoscope was inserted into the rectum and advanced through the colon to the cecum/TI. The colonoscope was slowly withdrawn in a retrograde panoramic fashion and the colon mucosa was carefully examined including a retroflexed view of the rectum. Findings and interventions are described below. Procedure Difficulty: moderate Findings: Terminal Ileum- few scattered erosions noted, bx taken Cecum: x 2 sessile polyps 3-4 mm removed with cold forceps, Ascending Colon: normal, random bx taken Transverse Colon -normal Descending Colon: 5-8 mm sessile polyp removed with cold snare Sigmoid Colon: moderate diverticulosis, x 2 sessile polyps 8-10 mm removed with cold snare Rectum: Retroflexion with small internal hemorrhoids seen, grade I Anorectum - normal Intervention: cold snare, cold forceps Colon preparation: [place] Bowel Preparation Scale Right colon; 2 Transverse colon: 2 Left colon; 1-2 (0 = Unprepared colon segment with mucosa not seen due to solid stool that cannot be cleared. 1 = Portion of mucosa of the colon segment seen, but other areas of the colon segment not well seen due to staining, residual stool and/or opaque liquid. 2 = Minor amount of residual staining, small fragments of stool and/or opaque liquid, but mucosa of colon segment seen well. 3 = Entire mucosa of colon segment seen well with no residual staining, small fragments of stool or opaque liquid) Impression and Post Procedure Diagnosis: diverticulosis colon polyps ileitis internal hemorrhoids Plan: High fiber diet leaflet Avoid straining at stool, epsom salts and sitz bath, anusol supps or cream Repeat Colonoscopy in 2-3 years due to fair prep and polysp removed or earlier if clinically indicated --if any sx suggestive of crohns then CTe, check NSAId hx Above findings were reviewed with the patient and relevant handouts were provided if indicated.
[2024-04-01 12:54] VITALS: BP 134/81; PULSE 67; RESP 16; TEMP 36.3; O2SAT 97
[2024-04-01 13:09] VITALS: BP 185/99; PULSE 63; RESP 16; TEMP 36.6; O2SAT 100
[2024-04-01 13:22] VITALS: BP 165/87; PULSE 70; RESP 16; O2SAT 99
== END 2024-04-01 13:38 | disposition home or self-care (01) ==
PROVIDERS: Visit Provider Internal Medicine Gastroenterology
PROC: 0DJD8ZZ Inspection of Lower Intestinal Tract, Via Natural or Artificial Opening Endoscopic (ICD-10-PCS; CPT 45378; principal; 2024-04-01 10:10)
DX: Z12.11 Encounter for screening for malignant neoplasm of colon (principal); D12.0 Benign neoplasm of cecum; D12.4 Benign neoplasm of descending colon; K50.00 Crohn's disease of small intestine without complications; K57.30 Diverticulosis of large intestine without perforation or abscess without bleeding; K64.0 First degree hemorrhoids; Z87.891 Personal history of nicotine dependence; Z79.899 Other long term (current) drug therapy; Z79.891 Long term (current) use of opiate analgesic; D12.5 Benign neoplasm of sigmoid colon
CPT/HCPCS: 45385; 45380; 88305; J2704

== ENCOUNTER → 2024-04-01 08:04 | Outpatient (BNV) | payer MEDICARE, MEDICAID, SELFPAY | PROVIDERS: Visit Provider Internal Medicine Gastroenterology | DX: Z12.11 Encounter for screening for malignant neoplasm of colon (principal); D12.0 Benign neoplasm of cecum; D12.4 Benign neoplasm of descending colon; D12.5 Benign neoplasm of sigmoid colon; K57.30 Diverticulosis of large intestine without perforation or abscess without bleeding; K64.0 First degree hemorrhoids | CPT/HCPCS: 45380; 45385 ==

== ENCOUNTER 2024-04-10 08:55 | Outpatient (AMB) | payer MEDICARE, MEDICAID, SELFPAY ==
--- NOTE | 2024-04-10 08:58 | MHC.OFFVIS ---
Vital Signs 04/10/24 09:06 Height 6 ft 3 in Weight 256 lb 2 oz BMI 32.0 BP 149/79 H Blood Pressure Location Lt brachial Position Sitting Pulse 70 Pulse Source Pulse Oximeter Pulse Oximetry (%) 98 Oxygen Delivery Method Room Air Intake Visit Reasons: PILL COUNT Intake Note: Darin comes in today for a pill count to oxycodone, patient should have 9 tablets and presents with 14 tablets which he last took today 04/10/24 at 8am. 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 Patient is supposed to have #9 pills in his possession and has #14. This demonstrates a responsible attitude in regards to the opioid regimen. Patient reports adequate analgesia without noted side effects. Pain is rated at 5-6/10. He reports current opioid regime allows him to be more functional and spent quality time with his grandchildren and family and be less symptomatic. Patient reports he recently underwent colonoscopy and had 7 polyps removed and was told he has diverticulosis. Denies any fever, chills, constipation, sedation, nausea, dizziness, urinary retention, instability, weakness, foot drop, locking or buckling knee, bladder or bowel dysfunction or saddle anesthesia. Past Procedures: 11/29/23: Left knee Durolane injection-30% pain relief 09/06/23: Right knee Durolane injection-100% pain relief [facility] Medical History Closed fracture of left distal fibula Cervicalgia Bilateral knee pain Chronic right hip pain Seasonal allergies Cervical spondylosis Degeneration of intervertebral disc of lumbar region Lumbar spinal stenosis Insomnia Depression with anxiety Surgical History H/O colonoscopy H/O right inguinal hernia repair Social History Alcohol intake: former Patient Tobacco Use Status: Former Tobacco user Current occupational status: retired Review of Systems Const All systems reviewed & are unremarkable except as noted in HPI and below Physical Exam Vital Signs: Last Vital Signs Pulse 70 04/10/24 09:06 BP 149/79 H 04/10/24 09:06 Pulse Ox 98 10/10/24 09:06 Oxygen Delivery Method Room Air 04/10/24 09:06 BMI result Body Mass Index 32.0 On exam today: Appears afebrile. Alert and oriented. Mood and affect appropriate. Follows and participates in conversation appropriately. Respiratory effort is unlabored. No cough. Able to transition from sit to stand unassisted. Ambulates with bilaterally normal heel strike and toe off. Able to stand and walk on toes and heels. GI Inspection: Yes obesity Palpation (GI): Soft to palpation, nontender and no guarding Back/Spine/Pelvis Cervical Spine: cervical ROM normal, cervical muscular tenderness and No Cervical spine tenderness Thoracic/Lumbar Spine: thoracic and lumbar spine normal to inspection, Lasegue's sign negative, pain with thoraco-lumbar ROM, paraspinal muscle tenderness on the right greater than left, thoraco-lumbar ROM limited, No thoracic spinal tenderness, lumbar spinal tenderness at L4 and at L5 and straight leg raise positive right at 50 degrees Sacroiliac joints: bilaterally nontender Extrem General: Yes capillary refill normal, Yes no clubbing, cyanosis or edema and Yes no calf tenderness Psych Appearance: grossly normal Mental Status: mental status grossly normal Speech and movement: Normal speech and movement present Affect: normal affect Attitude: cooperative Thought process: Normal thought process present Thought content: Normal thought content present, suicidality (none), no hallucinations and Depressive thoughts present Insight: Good insight present (Psych) Judgement: Good judgement present (Psych) Results Reviewed Results Reviewed: Impression: Mild dextroconvex lumbar scoliosis and moderately severe lumbar spondylosis superimposed upon 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 There are multilevel moderate to large size L3-L4 through L5-S1 intervertebral disc protrusions there is multilevel facet arthropathy. L3-4 level posterior and right paramedian-posterolateral disc protrusion with displacement of extraforaminal right L3 nerve root. Mild central canal stenosis and moderate narrowing of lateral recesses. Moderately severe right neural foraminal narrowing. L4-L5 level large posterior and right paramedian and posterolateral disc protrusion. Severe canal stenosis with severe crowding of intrathecal nerve roots. Severe right neural foraminal narrowing and moderately severe left neural foraminal narrowing. There L5-S1 moderate posterior and right paramedian slightly right posterolateral disc protrusion. The right posterior paramedian component demonstrates small peripheral annular fissuring resultant severe compression of right S1 nerve root at the right lateral recess. Small focal disc herniation at this level as possible. Moderate bilaeral narrowing of lateral recesses. Assessment & Plan Assessment & Plan (1) Chronic pain syndrome: Code(s): G89.4 - Chronic pain syndrome Category: Medical (2) Opioid contract exists: Code(s): Z79.891 - intermission coordinator (current) use of opiate analgesic Category: Medical (3) Lumbar spondylosis: Code(s): M47.816 - Spondylosis without myelopathy or radiculopathy, lumbar region Category: Medical (4) Bilateral primary osteoarthritis of knee: Code(s): M17.0 - Bilateral primary osteoarthritis of knee Category: Medical (5) Degeneration of intervertebral disc of lumbar region: Code(s): M51.36 - Other intervertebral disc degeneration, lumbar region Category: Medical (6) Cervical spondylosis: Code(s): M47.812 - Spondylosis without myelopathy or radiculopathy, cervical region Category: Medical Plan Patient has shown accountability for his medication regimen and the pill count was accurate. The patient reported no noted side effects. There is no evidence of misuse, abuse or diversion at this time. [employer] reviewed. Will sent next script with advanced date of 04/13/24. Encouraged daily physical activity, adequate hydration, dietary fiber, weight optimization, and well balanced diet. All questions were answered and patient is in agreement of plan. Follow up in 4-5 weeks for pill count and sooner if needed. Medications: Refilled oxycodone Partial Fill upon patient request. 5 mg PO TID PRN 90 tabs 0RF pain (scale score 7-10) 30 days M17.0 - Bilateral primary osteoarthritis of knee, M47.812 - Spondylosis without myelopathy or radiculopathy, cervical region, M51.36 - Other intervertebral disc degeneration, lumbar region, Z79.891 - skilled nursing (current) use of opiate analgesic Coding Level of Care Code Est Pt Level 4 (78358) Complex EM visit Add On G2211 Diagnoses Chronic pain syndrome G89.4 Opioid contract exists Z79.891 Lumbar spondylosis M47.816 Bilateral primary osteoarthritis of knee M17.0 Degeneration of intervertebral disc of lumbar region M51.36 Cervical spondylosis M47.812
[2024-04-10 09:06] VITALS: BP 149/79; PULSE 70; O2SAT 98; BMI 32.0
== END 2024-04-10 09:15 | disposition home or self-care (01) ==
PROVIDERS: PCP Internal Medicine; Visit Provider Nurse Practitioner Family
DX: G89.4 Chronic pain syndrome (principal); Z79.891 Long term (current) use of opiate analgesic; M47.816 Spondylosis without myelopathy or radiculopathy, lumbar region; M17.0 Bilateral primary osteoarthritis of knee; M51.36 Other intervertebral disc degeneration, lumbar region; M47.812 Spondylosis without myelopathy or radiculopathy, cervical region
CPT/HCPCS: 99214; G2211

== ENCOUNTER → 2024-04-10 08:55 | Outpatient (BNVA) | payer MEDICARE, MEDICAID, SELFPAY | PROVIDERS: PCP Internal Medicine; Visit Provider Nurse Practitioner Family | DX: G89.4 Chronic pain syndrome (principal); M47.816 Spondylosis without myelopathy or radiculopathy, lumbar region; M17.0 Bilateral primary osteoarthritis of knee; M51.369 Other intervertebral disc degeneration, lumbar region without mention of lumbar back pain or lower extremity pain; M47.812 Spondylosis without myelopathy or radiculopathy, cervical region; Z51.81 Encounter for therapeutic drug level monitoring; Z79.891 Long term (current) use of opiate analgesic | CPT/HCPCS: 99212 ==

== ENCOUNTER 2024-05-08 08:36 | Outpatient (AMB) | payer MEDICARE, MEDICAID, SELFPAY ==
--- NOTE | 2024-05-08 08:38 | MHC.OFFVIS ---
Vital Signs 05/08/24 08:45 Height 6 ft 3 in Weight 256 lb 2 oz BMI 32.0 BP 180/90 H Blood Pressure Location Lt brachial Position Sitting Pulse 82 Pulse Source Pulse Oximeter Pulse Oximetry (%) 99 Oxygen Delivery Method Room Air Intake Visit Reasons: Pill Count Intake Note: Darin comes in today for a pill count to oxycodone, patient should have 21 tablets and presents with 33 tablets which he last took today 05/08/24 at 7am. 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 Patient is supposed to have #21 pills in his possession and has #33. This demonstrates a responsible attitude in regards to the opioid regimen. Patient reports reasonable analgesia without noted side effects. Pain is rated at 8/10. Patient reports current opioid regime allows him to be more functional and spent quality time with his grandchildren and family and be less symptomatic. Denies any fever, chills, constipation, sedation, nausea, dizziness, urinary retention, instability, weakness, bladder or bowel dysfunction or saddle anesthesia. Past Procedures: 11/29/23: Left knee Durolane injection-30% pain relief 09/06/23: Right knee Durolane injection-100% pain relief [facility] Medical History Closed fracture of left distal fibula Cervicalgia Bilateral knee pain Chronic right hip pain Seasonal allergies Cervical spondylosis Degeneration of intervertebral disc of lumbar region Lumbar spinal stenosis Insomnia Depression with anxiety Surgical History H/O colonoscopy H/O right inguinal hernia repair Social History Alcohol intake: former Patient Tobacco Use Status: Former Tobacco user Current occupational status: retired Review of Systems Const All systems reviewed & are unremarkable except as noted in HPI and below Physical Exam Vital Signs: Last Vital Signs Pulse 82 05/08/24 08:45 BP 180/90 H 05/08/24 08:45 Pulse Ox 99 05/08/24 08:45 Oxygen Delivery Method Room Air 05/08/24 08:45 BMI result Body Mass Index 32.0 On exam today: Appears afebrile. Alert and oriented. Mood and affect appropriate. Follows and participates in conversation appropriately. Respiratory effort is unlabored. No cough. Able to transition from sit to stand unassisted. Ambulates with bilaterally normal heel strike and toe off. Able to stand and walk on toes and heels. Extrem General: Yes capillary refill normal, Yes no clubbing, cyanosis or edema and Yes no calf tenderness Psych Appearance: grossly normal Mental Status: mental status grossly normal Speech and movement: Normal speech and movement present Affect: normal affect Attitude: cooperative Thought process: Normal thought process present Thought content: Normal thought content present, suicidality (none), no hallucinations and Depressive thoughts present Insight: Good insight present (Psych) Judgement: Good judgement present (Psych) Results Reviewed Results Reviewed: Impression: Mild dextroconvex lumbar scoliosis and moderately severe lumbar spondylosis superimposed upon 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 There are multilevel moderate to large size L3-L4 through L5-S1 intervertebral disc protrusions there is multilevel facet arthropathy. L3-4 level posterior and right paramedian-posterolateral disc protrusion with displacement of extraforaminal right L3 nerve root. Mild central canal stenosis and moderate narrowing of lateral recesses. Moderately severe right neural foraminal narrowing. L4-L5 level large posterior and right paramedian and posterolateral disc protrusion. Severe canal stenosis with severe crowding of intrathecal nerve roots. Severe right neural foraminal narrowing and moderately severe left neural foraminal narrowing. There L5-S1 moderate posterior and right paramedian slightly right posterolateral disc protrusion. The right posterior paramedian component demonstrates small peripheral annular fissuring resultant severe compression of right S1 nerve root at the right lateral recess. Small focal disc herniation at this level as possible. Moderate bilaeral narrowing of lateral recesses. Assessment & Plan Assessment & Plan (1) Chronic pain syndrome: Code(s): G89.4 - Chronic pain syndrome Category: Medical (2) Opioid contract exists: Code(s): Z79.891 - detention (current) use of opiate analgesic Category: Medical (3) Lumbar spondylosis: Code(s): M47.816 - Spondylosis without myelopathy or radiculopathy, lumbar region Category: Medical (4) Bilateral primary osteoarthritis of knee: Code(s): M17.0 - Bilateral primary osteoarthritis of knee Category: Medical (5) Degeneration of intervertebral disc of lumbar region: Code(s): M51.36 - Other intervertebral disc degeneration, lumbar region Category: Medical (6) Cervical spondylosis: Code(s): M47.812 - Spondylosis without myelopathy or radiculopathy, cervical region Category: Medical Plan Patient has shown accountability for his medication regimen and the pill count was accurate. The patient reported no noted side effects. There is no evidence of misuse, abuse or diversion at this time. [place] reviewed. Script for oxycodone 5 mg TID prn sent with advanced date of 05/17/24. Encouraged daily physical activity, adequate hydration, dietary fiber, weight optimization, and well balanced diet. All questions were answered and patient is in agreement of plan. Follow up in 4-5 weeks for pill count and sooner if needed. Medications: Refilled oxycodone Partial Fill upon patient request. 5 mg PO TID 30 days PRN 90 tabs 0RF pain (scale score 7-10) M17.0 - Bilateral primary osteoarthritis of knee, M47.812 - Spondylosis without myelopathy or radiculopathy, cervical region, M51.36 - Other intervertebral disc degeneration, lumbar region, Z79.891 - detention (current) use of opiate analgesic Coding Level of Care Code Est Pt Level 4 (01255) Complex EM visit Add On G2211 Diagnoses Chronic pain syndrome G89.4 Opioid contract exists Z79.891 Lumbar spondylosis M47.816 Bilateral primary osteoarthritis of knee M17.0 Degeneration of intervertebral disc of lumbar region M51.36 Cervical spondylosis M47.812
[2024-05-08 08:45] VITALS: BP 180/90; PULSE 82; O2SAT 99; BMI 32.0
== END 2024-05-08 08:50 | disposition home or self-care (01) ==
PROVIDERS: PCP Internal Medicine; Visit Provider Nurse Practitioner Family
DX: G89.4 Chronic pain syndrome (principal); Z79.891 Long term (current) use of opiate analgesic; M47.816 Spondylosis without myelopathy or radiculopathy, lumbar region; M17.0 Bilateral primary osteoarthritis of knee; M51.369 Other intervertebral disc degeneration, lumbar region without mention of lumbar back pain or lower extremity pain; M47.812 Spondylosis without myelopathy or radiculopathy, cervical region
CPT/HCPCS: 99214; G2211

== ENCOUNTER → 2024-05-08 08:36 | Outpatient (BNVA) | payer MEDICARE, MEDICAID, SELFPAY | PROVIDERS: PCP Internal Medicine; Visit Provider Nurse Practitioner Family | DX: M17.0 Bilateral primary osteoarthritis of knee (principal); G89.4 Chronic pain syndrome; M51.369 Other intervertebral disc degeneration, lumbar region without mention of lumbar back pain or lower extremity pain; M48.061 Spinal stenosis, lumbar region without neurogenic claudication; M47.816 Spondylosis without myelopathy or radiculopathy, lumbar region; M47.812 Spondylosis without myelopathy or radiculopathy, cervical region; Z79.891 Long term (current) use of opiate analgesic | CPT/HCPCS: 99212 ==

== ENCOUNTER 2024-06-05 08:36 | Outpatient (AMB) | payer MEDICARE, MEDICAID, SELFPAY ==
--- NOTE | 2024-06-05 08:40 | MHC.OFFVIS ---
Vital Signs 06/05/24 08:45 Height 6 ft 3 in Weight 257 lb BMI 32.1 BP 142/89 H Blood Pressure Location Lt brachial Position Sitting Pulse 75 Pulse Source Pulse Oximeter Pulse Oximetry (%) 98 Oxygen Delivery Method Room Air Intake Visit Reasons: PILL COUNT Intake Note: Darin comes in today for apill count to oxycodone, patient should have 33 tablets and presents with 40 tablets which he last took today 06/05/24 at 7:45am. 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 He is supposed to have #33 pills in his possession and has #40. This demonstrates a responsible attitude in regards to the opioid regimen. Patient reports reasonable analgesia without noted side effects except occasional constipation. He has been incorporating dietary fiber and taking stool softener with partial benefit. Patient request laxative medication. Pain is rated at 8/10. Patient reports current opioid regime allows him to be more functional and be less symptomatic. Denies any fever, chills, cough, sedation, nausea, dizziness, urinary retention, instability, weakness, bladder or bowel dysfunction or saddle anesthesia. Past Procedures: 11/29/23: Left knee Durolane injection-30% pain relief 09/06/23: Right knee Durolane injection-100% pain relief [facility] Medical History Closed fracture of left distal fibula Cervicalgia Bilateral knee pain Chronic right hip pain Seasonal allergies Cervical spondylosis Degeneration of intervertebral disc of lumbar region Lumbar spinal stenosis Insomnia Depression with anxiety Surgical History H/O colonoscopy H/O right inguinal hernia repair Social History Alcohol intake: former Patient Tobacco Use Status: Former Tobacco user Current occupational status: retired Review of Systems Const All systems reviewed & are unremarkable except as noted in HPI and below Physical Exam On exam today: Appears afebrile. Alert and oriented. Mood and affect appropriate. Follows and participates in conversation appropriately. Respiratory effort is unlabored. No cough. Able to transition from sit to stand unassisted. Ambulates with bilaterally normal heel strike and toe off. Able to stand and walk on toes and heels. Back/Spine/Pelvis Cervical Spine: cervical muscular tenderness, pain with cervical ROM and No Cervical spine tenderness Thoracic/Lumbar Spine: thoracic and lumbar spine normal to inspection, Lasegue's sign negative, straight leg raise negative bilaterally, pain with thoraco-lumbar ROM, No thoracic spinal tenderness and lumbar spinal tenderness at L4 and at L5 Sacroiliac joints: bilaterally nontender Psych Appearance: grossly normal Mental Status: mental status grossly normal Speech and movement: Normal speech and movement present Affect: normal affect Attitude: cooperative Thought process: Normal thought process present Thought content: Normal thought content present, suicidality (none), no hallucinations and Depressive thoughts present Insight: Good insight present (Psych) Judgement: Good judgement present (Psych) 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 Category: Medical (2) Chronic pain syndrome: Code(s): G89.4 - Chronic pain syndrome Category: Medical (3) Lumbar spondylosis: Code(s): M47.816 - Spondylosis without myelopathy or radiculopathy, lumbar region Category: Medical (4) Bilateral primary osteoarthritis of knee: Code(s): M17.0 - Bilateral primary osteoarthritis of knee Category: Medical (5) Degeneration of intervertebral disc of lumbar region: Code(s): M51.36 - Other intervertebral disc degeneration, lumbar region Category: Medical (6) Cervical spondylosis: Code(s): M47.812 - Spondylosis without myelopathy or radiculopathy, cervical region Category: Medical Plan Patient has shown accountability for his medication regimen and the pill count was accurate. The patient reported no noted side effects. There is no evidence of misuse, abuse or diversion at this time. [employer] reviewed. Script for oxycodone 5 mg TID prn sent with advanced date of 06/16/24. Encouraged daily physical activity, adequate hydration, dietary fiber, weight optimization, and well balanced diet. Script sent for senna prn constipation. All questions were answered and patient is in agreement of plan. Follow up in 4-5 weeks for pill count and sooner if needed. Medications: New sennosides (Senna Laxative) 8.6 mg PO BID PRN 60 tabs 1RF constipation Z79.891 - shelter (current) use of opiate analgesic Refilled oxycodone Partial Fill upon patient request. 5 mg PO TID 30 days PRN 90 tabs 0RF pain (scale score 7-10) M17.0 - Bilateral primary osteoarthritis of knee, M47.812 - Spondylosis without myelopathy or radiculopathy, cervical region, M51.36 - Other intervertebral disc degeneration, lumbar region, Z79.891 - shelter (current) use of opiate analgesic Coding Level of Care Code Est Pt Level 4 (48353) Complex EM visit Add On G2211 Diagnoses Opioid contract exists Z79.891 Chronic pain syndrome G89.4 Lumbar spondylosis M47.816 Bilateral primary osteoarthritis of knee M17.0 Degeneration of intervertebral disc of lumbar region M51.36 Cervical spondylosis M47.812
[2024-06-05 08:45] VITALS: BP 142/89; PULSE 75; O2SAT 98; BMI 32.1
== END 2024-06-05 08:52 | disposition home or self-care (01) ==
PROVIDERS: PCP Internal Medicine; Visit Provider Nurse Practitioner Family
DX: Z79.891 Long term (current) use of opiate analgesic (principal); G89.4 Chronic pain syndrome; M47.816 Spondylosis without myelopathy or radiculopathy, lumbar region; M17.0 Bilateral primary osteoarthritis of knee; M51.369 Other intervertebral disc degeneration, lumbar region without mention of lumbar back pain or lower extremity pain; M47.812 Spondylosis without myelopathy or radiculopathy, cervical region
CPT/HCPCS: 99214; G2211

== ENCOUNTER → 2024-06-05 08:36 | Outpatient (BNVA) | payer MEDICARE, MEDICAID, SELFPAY | PROVIDERS: PCP Internal Medicine; Visit Provider Nurse Practitioner Family | DX: M47.812 Spondylosis without myelopathy or radiculopathy, cervical region (principal); M47.816 Spondylosis without myelopathy or radiculopathy, lumbar region; M51.369 Other intervertebral disc degeneration, lumbar region without mention of lumbar back pain or lower extremity pain; M48.061 Spinal stenosis, lumbar region without neurogenic claudication; G89.4 Chronic pain syndrome; M17.0 Bilateral primary osteoarthritis of knee; Z79.891 Long term (current) use of opiate analgesic | CPT/HCPCS: 99212 ==

== ENCOUNTER 2024-07-10 08:28 | Outpatient (AMB) | payer MEDICARE, MEDICAID, SELFPAY ==
--- NOTE | 2024-07-10 08:33 | MHC.OFFVIS ---
Vital Signs 07/10/24 08:34 Height 6 ft 3 in Weight 262 lb BMI 32.7 BP 122/78 Blood Pressure Location Lt brachial Position Sitting Respiration 17 Pulse 69 Pulse Source Pulse Oximeter Pulse Oximetry (%) 97 Oxygen Delivery Method Room Air Intake Visit Reasons: Pill Count/ random UDS Intake Note: Pt states he last took oxy 07/10/24 @ 8am Allergies No Known Allergies Allergy (Verified 07/10/24 08:35) Medication List - Last Reconciled 07/10/24 by Charissa Bernabe LPN alfuzosin ER 10 mg PO DAILY celecoxib 100 mg PO BID PRN 30 days diclofenac sodium 3% 1 appl topical BID finasteride 5 mg PO BEDTIME fluticasone propionate 50 mcg/actuation sprays intranasal gabapentin 300 mg PO DAILY 90 days lidocaine 5% 1 patch topical DAILY 30 days loratadine 10 mg PO DAILY oxycodone 5 mg PO TID PRN 30 days sennosides (Senna Laxative) 8.6 mg PO BID PRN tizanidine 4 mg PO Q6-8H PRN trazodone 50 mg PO BEDTIME HPI Comments Details: Darin presents today for his pill count. He is supposed to have #27 pills in his possession and has #42. This demonstrates a responsible attitude in regards to the opioid regimen. Patient reports reasonable analgesia without noted side effects except occasional constipation. Patient has been incorporating dietary fiber and taking stool softener and laxatives as needed with good benefit. Pain is rated at 5/10. Patient reports current opioid regime allows him to be more functional and be less symptomatic. Denies any fever, chills, cough, sedation, nausea, dizziness, urinary retention, instability, weakness, bladder or bowel dysfunction or saddle anesthesia. Past Procedures: 11/29/23: Left knee Durolane injection-30% pain relief 09/06/23: Right knee Durolane injection-100% pain relief [facility] Medical History Closed fracture of left distal fibula Cervicalgia Bilateral knee pain Chronic right hip pain Seasonal allergies Cervical spondylosis Degeneration of intervertebral disc of lumbar region Lumbar spinal stenosis Insomnia Depression with anxiety Surgical History H/O colonoscopy H/O right inguinal hernia repair Social History Alcohol intake: former Patient Tobacco Use Status: Former Tobacco user Current occupational status: retired Review of Systems Const All systems reviewed & are unremarkable except as noted in HPI and below Physical Exam Vital Signs: Last Vital Signs Pulse 69 07/10/24 08:34 Resp 17 07/10/24 08:34 BP 122/78 07/10/24 08:34 Pulse Ox 97 07/10/24 08:34 Oxygen Delivery Method Room Air 07/10/24 08:34 BMI result Body Mass Index 32.7 On exam today: Appears afebrile. Alert and oriented. Mood and affect appropriate. Follows and participates in conversation appropriately. Respiratory effort is unlabored. No cough. Able to transition from sit to stand unassisted. Ambulates with bilaterally normal heel strike and toe off. Able to stand and walk on toes and heels. Extrem General: Yes capillary refill normal, Yes no clubbing, cyanosis or edema and Yes no calf tenderness Psych Appearance: grossly normal Mental Status: mental status grossly normal Speech and movement: Normal speech and movement present Affect: normal affect Attitude: cooperative Thought process: Normal thought process present Thought content: Normal thought content present, suicidality (none), no hallucinations and Depressive thoughts present Insight: Good insight present (Psych) Judgement: Good judgement present (Psych) Results Reviewed Results Reviewed: No imaging results are available for review. 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 Category: Medical (2) Chronic pain syndrome: Code(s): G89.4 - Chronic pain syndrome Category: Medical (3) Lumbar spondylosis: Code(s): M47.816 - Spondylosis without myelopathy or radiculopathy, lumbar region Category: Medical (4) Bilateral primary osteoarthritis of knee: Code(s): M17.0 - Bilateral primary osteoarthritis of knee Category: Medical (5) Degeneration of intervertebral disc of lumbar region: Code(s): M51.36 - Other intervertebral disc degeneration, lumbar region Category: Medical (6) Cervical spondylosis: Code(s): M47.812 - Spondylosis without myelopathy or radiculopathy, cervical region Category: Medical Plan Patient has shown accountability for his medication regimen and the pill count was accurate. The patient reported no noted side effects. There is no evidence of misuse, abuse or diversion at this time. [employer] reviewed. Will obtain random UDS today. Script for oxycodone 5 mg TID prn sent with advanced date of 07/22/24. Encouraged daily physical activity, adequate hydration, dietary fiber, weight optimization, and well balanced diet. All questions were answered and patient is in agreement of plan. Follow up in 4-5 weeks for pill count/UDS review and sooner if needed. Medications: Refilled oxycodone Partial Fill upon patient request. 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
[2024-07-10 08:34] VITALS: BP 122/78; PULSE 69; RESP 17; O2SAT 97; BMI 32.7
== END 2024-07-10 08:45 | disposition home or self-care (01) ==
PROVIDERS: PCP Internal Medicine; Visit Provider Nurse Practitioner Family
DX: Z79.891 Long term (current) use of opiate analgesic (principal); G89.4 Chronic pain syndrome; M47.816 Spondylosis without myelopathy or radiculopathy, lumbar region; M17.0 Bilateral primary osteoarthritis of knee; M51.369 Other intervertebral disc degeneration, lumbar region without mention of lumbar back pain or lower extremity pain; M47.812 Spondylosis without myelopathy or radiculopathy, cervical region
CPT/HCPCS: 99214; G2211

== ENCOUNTER → 2024-07-10 08:28 | Outpatient (BNVA) | payer MEDICARE, MEDICAID, SELFPAY | PROVIDERS: PCP Internal Medicine; Visit Provider Nurse Practitioner Family | DX: Z51.81 Encounter for therapeutic drug level monitoring (principal); M47.816 Spondylosis without myelopathy or radiculopathy, lumbar region; M17.0 Bilateral primary osteoarthritis of knee; M51.360 Other intervertebral disc degeneration, lumbar region with discogenic back pain only; M47.812 Spondylosis without myelopathy or radiculopathy, cervical region; G89.4 Chronic pain syndrome; Z79.891 Long term (current) use of opiate analgesic | CPT/HCPCS: 99212 ==

== ENCOUNTER 2024-09-18 09:58 | Outpatient (AMB) | payer MEDICARE, MEDICAID, SELFPAY ==
--- NOTE | 2024-09-18 10:00 | MHC.OFFVIS ---
Vital Signs 09/18/24 10:08 09/18/24 10:30 Height 6 ft 3 in Weight 257 lb 4 oz BMI 32.2 BP 192/109 H 144/78 H Blood Pressure Location Lt brachial Lt brachial Position Sitting Sitting Pulse 117 H 108 H Pulse Source Pulse Oximeter Pulse Oximetry (%) 98 Oxygen Delivery Method Room Air Comment bp recheck Intake Visit Reasons: Pill count Intake Note: Darin comes in today for a pill count to oxycodone, patient should have 9 tablets and presents with 17 tablets which he last took today 09/18/24 at 8am. Pain today 03/11 Patient also picked up a script due to hernia surgery, which was counted in office patient had 20 tablets of oxycodone 5mg and 20 was prescribed. Religious Assistant Required: No Accompanied by: Self / Same As Patient Allergies No Known Allergies Allergy (Verified 08/14/24 09:12) HPI Comments Details: Darin presents today for his pill count. He is supposed to have #9 pills in his possession and has #17. This demonstrates a responsible attitude in regards to the opioid regimen. Patient reports mild analgesia without noted side effects except occasional constipation. Patient has been incorporating dietary fiber and taking stool softener and laxatives as needed with good benefit. Pain is rated at 9/10. Patient reports he underwent bilateral inguinal hernia repair 2 weeks ago at [facility] by Dr. Lora and reports concerns for significant swelling and bruising of right groin and scrotum. He reports being told this was expected as his right hernia has been significantly larger then left. He has 3 abdominal well healing incisions with intact skin glue without redness, erythema or tenderness. [facility] that he had additional script of oxycodone from Dr. Lora for post op pain which patient was not aware. He notes that he has been in significant amount of post op pain. Patient will continue his original medication regime with addition of extra oxycodone per surgeon to manage his post op and follow up with Dr. Lora for his right side swelling and bruising. Denies any fever, chills, cough, sedation, nausea, dizziness, urinary retention, instability, weakness, bladder or bowel dysfunction or saddle anesthesia. Past Procedures: 11/29/23: Left knee Durolane injection-30% pain relief 09/06/23: Right knee Durolane injection-100% pain relief [facility] Medical History Closed fracture of left distal fibula Cervicalgia Bilateral knee pain Chronic right hip pain Seasonal allergies Cervical spondylosis Degeneration of intervertebral disc of lumbar region Lumbar spinal stenosis Insomnia Depression with anxiety Surgical History H/O colonoscopy H/O right inguinal hernia repair Social History Alcohol intake: former Patient Tobacco Use Status: Former Tobacco user Current occupational status: retired Review of Systems Const All systems reviewed & are unremarkable except as noted in HPI and below Physical Exam Vital Signs: Last Vital Signs Pulse 117 H 09/18/24 10:08 BP 192/109 H 09/18/24 10:08 Pulse Ox 98 09/18/24 10:08 Oxygen Delivery Method Room Air 09/18/24 10:08 BMI result Body Mass Index 32.2 On exam today: Appears afebrile. Alert and oriented. Mood and affect appropriate. Follows and participates in conversation appropriately. Respiratory effort is unlabored. No cough. Able to transition from sit to stand unassisted. Ambulates with bilaterally normal heel strike and toe off. Able to stand and walk on toes and heels. GI Other: Well healing abdominal small incision s/p recent laparoscopic bilateral hernia repair with mesh. Inspection: Yes normal to inspection Palpation (GI): Soft to palpation, nontender and no guarding Extrem General: Yes capillary refill normal, Yes no clubbing, cyanosis or edema and Yes no calf tenderness Psych Appearance: grossly normal Mental Status: mental status grossly normal Speech and movement: Normal speech and movement present Affect: normal affect Attitude: cooperative Thought process: Normal thought process present Thought content: Normal thought content present, suicidality (none), no hallucinations and Depressive thoughts present Insight: Good insight present (Psych) Judgement: Good judgement present (Psych) Results Reviewed Results Reviewed: No imaging results are available for review. 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 Category: Medical (2) Chronic pain syndrome: Code(s): G89.4 - Chronic pain syndrome Category: Medical (3) Lumbar spondylosis: Code(s): M47.816 - Spondylosis without myelopathy or radiculopathy, lumbar region Category: Medical (4) Bilateral primary osteoarthritis of knee: Code(s): M17.0 - Bilateral primary osteoarthritis of knee Category: Medical (5) Degeneration of intervertebral disc of lumbar region: Code(s): M51.36 - Other intervertebral disc degeneration, lumbar region Category: Medical (6) Cervical spondylosis: Code(s): M47.812 - Spondylosis without myelopathy or radiculopathy, cervical region Category: Medical (7) Status post bilateral hernia repair: Code(s): Z98.890 - Other specified postprocedural states; Z87.19 - Personal history of other diseases of the digestive system Category: Surgical Plan Patient has shown accountability for his medication regimen and the pill count was accurate. The patient reported no noted side effects. There is no evidence of misuse, abuse or diversion at this time. [employer] reviewed and consistent with patient's history. Script for oxycodone 5 mg TID prn sent with advanced date of 09/23/24. Patient will take additional oxycodone script to manage his post-op pain per Dr. Lora. Follow up with Surgeon for any worsening of symptoms with right groin/scrotum. Encouraged daily physical activity, adequate hydration, dietary fiber, weight optimization, and well balanced diet. All questions were answered and patient is in agreement of plan. Follow up in 4-5 weeks for pill count and sooner if needed. Coding Level of Care Code Est Pt Level 4 (44682) Complex EM visit Add On G2211 Diagnoses Opioid contract exists Z79.891 Chronic pain syndrome G89.4 Lumbar spondylosis M47.816 Bilateral primary osteoarthritis of knee M17.0 Degeneration of intervertebral disc of lumbar region M51.36 Cervical spondylosis M47.812 Status post bilateral hernia repair Z98.890; Z87.19
[2024-09-18 10:08] VITALS: BP 192/109; PULSE 117; O2SAT 98; BMI 32.2
[2024-09-18 10:30] VITALS: BP 144/78; PULSE 108
--- OUTSIDE RECORDS SUMMARY | 2024-09-18 11:10 | XMS_ITS | Encounter Summary ---
Author Organization [facility] Address [address] [place] [address] Care Team Providers Care Bass String Winder Name Role Phone Frances Sosa Primary Care Provider [phone] Encounter Details Date Type Department Care Team (Late st Contact Info) Description 09/04/2024 10:01 AM EST Anesthesia Event [facility] Main OR [address] [place] [address] Mt Salinas MD [address] [place] [address] Evaristo Balderrama SRNA Anesthesia Record Procedure Summary Procedure Name Responsible Anesthesiologist Anesthesia Start Time Anesthesia Stop Time DAVINCI BILATERAL INGUINAL HERNIA REPAIR WITH MESH (Bilateral: Abdomen) Mt Salinas MD 09/04/24 1001 09/04/24 1224 Events Date Time Event Comment 09/04/2024 0959 In Room 1001 An Start 1001 An Start Data The patient wa s reevaluated immediately before moderate or deep sedation use and before anesthesia induction. 1009 An Induction 1011 An Intubation 1015 Anesthesia Ready 1031 Proc Start 1205 Proc Fin 1212 An Extubation 1215 Out of Room 1223 Handoff to RN I completed my handoff to the receiving nurse during which we: 1. Identified the patient 2. Identified the responsible provider 3. Reviewed the pertinent medical history 4. Discussed the surgical course 5. Reviewed intra-op anesthesia management and issues during anesthesia 6. Set expectations for post-procedure period 7. Allowed opportunity for questions and acknowledgement of understanding. 1224 An Stop 1224 an stop data 1422 Meds Name Total midazolam 1 mg/mL 2 mg fentaNYL (SUBLIMAZE) injection 100 mcg propofol (DIPRIVAN) injection 10 mg/mL 3 00 mg rocuronium 60 mg ondansetron 2 mg/mL 4 mg dexamethasone (DECADRON) injection 4 mg/ mL 4 mg lidocaine PF (XYLOCAINE-MPF) local injec tion 2% 100 mg ceFAZolin (ANCEF) 2 g in sterile water 2 0 mL IV syringe 2 g HYDROmorphone (DILAUDID) injection 2 mg/ mL 1.5 mg sugammadex (BRIDION) injection 100 mg/mL 300 mg lactated Ringer's infusion 1,000 mL * Agents Name O2 N2O Air Sevoflurane Inspired Sevoflurane * Blood No blood administrations on file. Lines, Drains, and Airways Type Details Placement Removal Wound Incision; 09/04/24; 1050; Abdomen; Right, Upper 09/04/24 1050 by Delmi Novak RN Wound Incision; 09/04/24; 1050; Abdomen; Medial, Upper 09/04/24 1050 by Delmi Novak RN Wound Incision; 09/04/24; 1051; Abdomen; Left, Upper 09/04/24 1051 by Delmi Novak RN Peripheral IV Placement Date: 09/04/24; Placement Time: 0834; Catheter Size: 20 G; Orientation: Left, Posterior; Location: Hand; Site Prep: Chlorhexidine; Local Anesth: None; Inserted by: ROMERO MARTEL RN; Insertion Attempts: 1; Patient Tolerance: Tolerated well; Removal Date: 09/04/24; Removal Time: 1420; Removal Reason: Removed by patient 09/04/24 0834 by Romero Orozco RN 09/04/24 1420 by Destiny Patel RN ETT Placement Date: 09/04/24; Placement Time: 1036 (created via procedure documentation); Technique: Direct laryngoscopy; Type: ETT; Cuffed: Yes; Blade Size: 4; Location: Oral; Insertion Attempts: 1; Placement Verification: Auscultation, Capnometry; Removal Date: 09/04/24; Removal Time: 1212 09/04/24 1036 by ANNIA Correa 09/04/24 1212 by ANNIA Correa documented in this encounter Social History Tobacco Use Types Packs/Day Years Used Date Smoking Tobacco: Former Alcohol Use Standard Drinks/Week Comments Yes 7.5 (1 standard drink = 0.6 oz p ure alcohol) SOCIAL Interpersonal Safety Answer Date Record ed Physical Abuse 09/04/2024 Verbal Abuse 09/04/2024 Sex and Gender Information Value Date Recorded Sex Assigned at Male 09/03/2024 3:19 PM EST Legal Sex Male 8:27 PM EST Gender Identity Male 09/03/2024 3:19 PM EST Sexual Orientation Straight 09/03/2024 3: 19 PM EST documented as of this encounter Progress Notes * ANNIA Correa - 09/04/2024 12:24 PM EST Patient: Darin Montalvo Procedure Summary Date: 09/04/24 Room / Location: [facility] OR [facility] OR Anesthesia Start: 1001 Anesthesia Stop: 1224 Procedure: DAVINCI BILATERAL INGUINAL HERNIA REPAIR WITH MESH (Bilateral: Abdomen) Diagnosis: Non-recurrent bilateral inguinal hernia without obstruction or gangrene (Bilateral inguinal hernia K40.20) Surgeons: Umesh Lora DO Responsible Provider: Mt Salinas MD Anesthesia Type: general ASA Status: 2 Anesthesia Plan: general Last Vitals: Vitals Value Taken Time BP 150/74 09/04/24 1220 Temp 36.2 ??C (97.1 ??F) 09/04/24 1220 Pulse 58 09/04/24 1220 Resp 12 09/04/24 1220 SpO2 98 % 09/04/24 1220 No data recorded Anesthesia Post Evaluation Patient location during evaluation: PACU Patient participation: complete - patient participated Level of consciousness: awake Pain score: 0 Pain management: adequate Airway patency: patent Anesthetic complications: no Cardiovascular status: acceptable, hemodynamically stable and stable Respiratory status: acceptable Hydration status: acceptable Nausea: No Vomiting: No There were no known notable events for this encounter. * ANNIA Correa - 09/04/2024 10:35 AM ESTAssociated Order(s): Intubation General Information and Staff Patient location during procedure: OR Resident/SENIOR ETL DEVELOPER: ANNIA Correa Performed by: ANNIA Correa Authorized by: Mt Salinas MD Intubation Airway not difficult Urgency: elective Final Airway Details Successful airway: ETT Cuffed: yes Successful intubation technique: direct laryngoscopy Facilitating devices/methods: intubating stylet Endotracheal tube insertion site: oral Blade: Norah Blade size: #4 ETT size (mm): 8.0 Cormack-Lehane Classification: grade I - full view of glottis Placement verified by: chest auscultation and capnometry Measured from: teeth ETT to teeth (cm): 24 Number of attempts at approach: 1Final airway type: endotracheal airway Indications and Patient Condition Indications for airway management: anesthesia Spontaneous Ventilation: absent Sedation level: Yes Preoxygenated: yes Soft Tissue Damage: No Dentition Unchanged: No Patient position: sniffing MILS maintained throughout * Mt Salinas MD - 09/04/2024 10:05 AM EST 64 y.o. male scheduled for Non-recurrent bilateral inguinal hernia without obstruction or gangrene [DAVINCI BILATERAL INGUINAL HERNIA REPAIR WITH MESH (Bilateral: Abdomen)] Ht Readings from Last 1 Encounters: 09/04/24 1.981 m (78 ) Wt Readings from Last 1 Encounters: 09/04/24 118 kg (260 lb) Body mass index is 30.05 kg/m??. Past Medical History: Diagnosis Date ADHD Anxiety Arthritis Depression Fractures Hypertension Joint pain Psychiatric illness PTSD (post-traumatic stress disorder) Past Surgical History: Procedure Laterality Date COLONOSCOPY TONSILLECTOMY PROCEDURE: HISTORICAL TONSILLECTOMY Anesthesia complications Denies No Known Allergies Prior to Admission medications Medication Sig Start Date End Date Taking? Authorizing Provider fluticasone propionate (FLONASE) 50 mcg/actuation nasal spray Administer 2 sprays into each nostrilif needed for rhinitis. Shake gently. Before first use, prime pump. After use, clean tip and replace cap. Yes Historical Provider, gabapentin (NEURONTIN) 300 mg capsule TAKE ONE CAPSULE BY MOUTH EVERY DAY NEEDED FOR PAIN 12/12/23 Yes Historical Provider, loratadine (CLARITIN) 10 mg tablet Take 1 tablet (10 mg total) by mouth 1 (one) time each day. 07/03/24 Yes Historical Provider, oxyCODONE-acetaminophen (PERCOCET) 5-325 mg per tablet 1 TABLET EVERY 4 TO 6 HOURS NEEDED Yes Historical Provider, alfuzosin (UROXATRAL) 10 mg 24 hr tablet Take 1 tablet (10 mg total) by mouth 1 (one) time each day. 04/22/24 Historical Provider, amLODIPine (NORVASC) 5 mg tablet Take 1 tablet (5 mg total) by mouth 1 (one) time each day. Historical Provider, FLUoxetine (PROzac) 40 mg capsule 1 CAPSULE EVERY MORNING Historical Provider, naproxen (NAPROSYN) 500 mg tablet 1 TABLET TWICE DAILY 12/17/09 Historical Provider, MD Pepper have personally reviewed all the patient's medications with them prior to anesthesia. Current In-hospital Medications ceFAZolin, 2 g, intravenous, Once Social History Tobacco Use Smoking status: Former Substance Use Topics Alcohol use: Yes Alcohol/week: 7.5 standard drinks of alcohol Types: 8 Standard drinks or equivalent per week Comment: SOCIAL Drug use: Yes Types: Marijuana/Cannabis Comment: 2 X DAILY Is the patient a current smoker (e.g. cigarette, cigar, pip, e-cigarette, or mariajuana)? Yes [] No[x] Patient previously instructed to abstain from smoking on the day of procedure? Yes [] No[] Patient smoked on the day of procedure? Yes [] No[] ASPIRE smoking VBR: [] Not interested in quitting [] Interested in quitting- referred to treatment [] Interested in quitting - treatment provided Visit Vitals BP (!) 161/94 Pulse 65 Temp 36.3 ??C (97.4 ??F) Resp 16 Ht 1.981 m (78 ) Wt 118 kg (260 lb) SpO2 97% BMI 30.05 kg/m?? Smoking Status Former BSA 2.52 m?? LABS: No results found for: WBC , HGB , HCT , MCV , PLT No results found for: GLUCOSE , CALCIUM , NA , K , CO2 , CL , BUN , CREATININE No results found for: INR , PROTIME No results found for: PTT Relevant Problems Pulmonary (+) Tobacco use disorder Clinical information reviewed: Tobacco Allergies Meds Med Hx Surg Hx Fam Hx Soc Hx Anesthesia Plan ASA 2 Anesthesia Plan: general General Anesthesia Considerations: ETT Anesthesia Considerations general ETT Anesthesia Risks Discussed dental injury, nausea, pain, sore throat, corneal abrasion, allergic reaction and serious complications Induction method: intravenous Postoperative administration of opioids is intended. Anesthetic plan and risks discussed with patient. Use of blood products discussed with patient who. Anesthesia Plan discussed with SENIOR ETL DEVELOPER. Anesthesia Evaluation Airway Mallampati: II Thyromental distance: >3 FB Neck ROM: fullnot intubatedno noted risk Dental Pulmonary breath sounds clear to auscultation Cardiovascular (+) hypertension Rhythm: regular Rate: normal Neuro/Psych Mental Status: alert and oriented GI/Hepatic/Renal Endo/Other Abdominal Abdomen: soft. Bowel sounds: normal. PONV RISK SCORE: 1 Vitals: 08/27/24 1000 09/04/24 0807 09/04/24 0826 BP: (!) 161/94 Pulse: 65 Resp: 16 Temp: 36.3 ??C (97.4 ??F) SpO2: 97% Weight: 118 kg (260 lb) 118 kg (260 lb) Height: 1.981 m (78 ) 1.981 m (78 ) SpO2 Readings from Last 1 Encounters: 09/04/24 97% No results found for: WBC , RBC , HGB , HCT , PLT , MCV No Known Allergies STOP BANG: STOP-Bang Total Score: 3 (09/04/2024 8:26 AM) NPO Status: Time of Last Liquid: 0600 Time of Last Solid: 2100 documented in this encounter Plan of Treatment Upcoming Encounters Date Type Department Care Team (Late st Contact Info) Description 10/20/2024 10:45 AM EDT Office Visit General Surgery - [employer] [address] [facility] [address] [place] [phone] Umesh Lora, [address] [address] documented as of this encounter Procedures Procedure Name Priority Date/Time Associated Diagnosis Comments TH AN ENDOTRACHEAL(NO CHARGE) Routine 09/04/2024 10:35 AM EST documented in this encounter Results * TH AN ENDOTRACHEAL(NO CHARGE) (09/04/2024 10:35 AM EST) Narrative Evaristo Balderrama SRNA - 09/04/2024 10:35 AM EST ANNIA Correa ? 09/04/2024 10:36 AM General Information and Staff Patient location during procedure: OR Resident/SENIOR ETL DEVELOPER: ANNIA Correa Performed by: ANNIA Correa Authorized by: Mt Salinas MD ?? Intubation Airway not difficult Urgency: elective Final Airway Details Successful airway: ETT Cuffed: yes Successful intubation technique: direct laryngoscopy Facilitating devices/methods: intubating stylet Endotracheal tube insertion site: oral Blade: Norah Blade size: #4 ETT size (mm): 8.0 Cormack-Lehane Classification: grade I - full view of glottis Placement verified by: chest auscultation and capnometry Measured from: teeth ETT to teeth (cm): 24 Number of attempts at approach: 1Final airway type: endotracheal airway Indications and Patient Condition Indications for airway management: anesthesia Spontaneous Ventilation: absent Sedation level: Yes Preoxygenated: yes Soft Tissue Damage: No Dentition Unchanged: No Patient position: sniffing MILS maintained throughout us Mt Salinas MD ANESTHESIA ORDERABLES Final Re sult documented in this encounter Visit Diagnoses Not on filedocumented in this encounter Administered Medications Inactive Administered Medications - up to 3 most recent administrations Medication Order MAR Action Action Date Dose Rate Site ceFAZolin (ANCEF) 2 g in sterile water 20 mL IV syringe 2 g, intravenous, Administer over 3 Minutes, Once, On Kayleen 09/04/24 at 0845, For 1 dose, Preprocedure, -IV Push over 3 minutes -Administer within 60 minutes of incision, Indication: Prophylaxis-Surgical New Bag 09/04/2024 10:15 AM EST 2 g dexAMETHasone (DECADRON) injection intravenous, As needed, Starting on Kayleen 09/04/24 at 1033, Anesthesia Intraprocedure Given 09/04/2024 10:33 AM EST 4 mg fentaNYL (PF) (SUBLIMAZE) injection intravenous, As needed, Starting on Kayleen 09/04/24 at 1009, Anesthesia Intraprocedure Given 09/04/2024 10:09 AM EST 100 mcg HYDROmorphone (DILAUDID) injection intravenous, As needed, Starting on Kayleen 09/04/24 at 1101, Anesthesia Intraprocedure Given 09/04/2024 12:03 PM EST 0.5 mg Given 09/04/2024 11:01 AM EST 1 mg lactated Ringer's infusion intravenous, Continuous PRN, Starting on Kayleen 09/04/24 at 1043, Anesthesia Intraprocedure Continued from OR 09/04/2024 12:24 PM EST New Bag 09/04/2024 10:43 AM EST New Bag 09/04/2024 9:55 AM EST lidocaine (PF) (XYLOCAINE-MPF) 2 % injection injection, As needed, Starting on Kayleen 09/04/24 at 1009, Anesthesia Intraprocedure Given 09/04/2024 10:09 AM EST 100 mg midazolam (VERSED) injection intravenous, As needed, Starting on Kayleen 09/04/24 at 1001, Anesthesia Intraprocedure Given 09/04/2024 10:01 AM EST 2 mg ondansetron (PF) (ZOFRAN) injection intravenous, As needed, Starting on Kayleen 09/04/24 at 1159, Anesthesia Intraprocedure Given 09/04/2024 11:59 AM EST 4 mg propofoL (DIPRIVAN) injection intravenous, As needed, Starting on Kayleen 09/04/24 at 1009, Anesthesia Intraprocedure Given 09/04/2024 10:09 AM EST 3 00 mg rocuronium (ZEMURON) injection intravenous, As needed, Starting on Kayleen 09/04/24 at 1009, Anesthesia Intraprocedure Given 09/04/2024 10:09 AM EST 6 0 mg sugammadex (BRIDION) 100 mg/mL injection intravenous, As needed, Starting on Kayleen 09/04/24 at 1205, Anesthesia Intraprocedure Given 09/04/2024 12:05 PM EST 3 00 mg documented in this encounter Care Teams Bass String Winder Relationship Specialty Start Date End Date Frances Sosa PA [address] [place] [phone] PCP - General Physician Presiding Steward 09/04/24 documented as of this encounter
--- OUTSIDE RECORDS SUMMARY | 2024-09-18 11:10 | XMS_ITS | Encounter Summary ---
Author Organization [facility] Address [address] [place] [address] Care Team Providers Care Relay Engineer Name Role Phone Frances Sosa Primary Care Provider Encounter Details Date Type Department Care Team (Latest Contact Info) Description 09/04/2024 7:53 AM EST - 09/04/2024 2:35 PM EST Hospital Encounter [facility] Main OR [address] [place] [phone] Umesh Lora, DO [address] [address] Discharge Disposition: Home or Self Care Social History Tobacco Use Types Packs/Day Years Used Date Smoking Tobacco: Former Tobacco Cessation:Counseling Given: Not Answered Alcohol Use Standard Drinks/Week Comments Yes 7.5 [...] PM EST documented as of this encounter Last Filed Vital Signs Vital Sign Reading Time Taken Comments Blood Pressure 143/77 09/04/2024 1:23 PM EST Pulse 54 09/04/2024 1:23 PM EST Temperature 36.7 ??C (98 ??F) 09/04/2024 1:23 PM EST Respiratory Rate 18 09/04/2024 1:23 PM EST Oxygen Saturation 98% 09/04/2024 1:23 PM EST Inhaled Oxygen Concentration - - Weight 118 kg (260 lb) 09/04/2024 8:26 AM EST Height 198.1 cm (6' 6 ) 09/04/2024 8:26 AM EST Body Mass Index 30.05 09/04/2024 8:26 AM EST documented in this encounter Discharge Summaries * Umesh Lora DO - 09/04/2024 12:31 PM EST For pain control you may take Tylenol 1000 mg every 6 hours, but do not exceed 4000 mg in a 24-hourperiod. You may also take ibuprofen 600 mg every 8 hours with meals. For severe pain please take oxycodone 5 mg every [address] operate machinery on this medication. Please do not take your Percocet at this point in time because you will exceed the amount of daily Tylenol. Insteadplease only take the oxycodone 5 mg. Please expect bruising and swelling into both groins and your scrotum. Please do not remove the glue from your incision until roughly 7 to 10 days. You may shower and let water run over your incisions but do not scrub your incisions and do not soak them. You may return to regular diet. documented in this encounter Discharge Instructions * Attachments The following attachments cannot be sent through Care Everywhere. * General Anesthesia (Niuean) * Inguinal Hernia Repair: Post-op (Niuean) documented in this encounter Medications at Time of Discharge acetaminophen (TYLENOL) 500 mg tablet Take 2 tablets (1,000 mg total) by mouth every 6 (six) hours if needed for mild pain. 60 tablet 09/04/2024 alfuzosin (UROXATRAL) 10 mg 24 hr tablet Take 1 tablet (10 mg total) by mouth 1 (one) time each day. 04/22/2024 amLODIPine (NORVASC) 5 mg tablet Take 1 tablet (5 mg total) by mouth 1 (one) time each day. FLUoxetine (PROzac) 40 mg capsule 1 CAPSULE EVERY MORNING fluticasone propionate (FLONASE) 50 mcg/actuation nasal spray Administer 2 sprays into each nostril if needed for rhinitis. Shake gently. Before first use, prime pump. After use, clean tip and replace cap. gabapentin (NEURONTIN) 300 mg capsule TAKE ONE CAPSULE BY MOUTH EVERY DAY NEEDED FOR PAIN 12/12/2023 ibuprofen (ADVIL,MOTRIN) 600 mg tablet Take 1 tablet (600 mg total) by mouth every 8 (eight) hours if needed for mild pain. 60 tablet 09/04/2024 loratadine (CLARITIN) 10 mg tablet Take 1 tablet (10 mg total) by mouth 1 (one) time each day. 07/03/2024 naproxen (NAPROSYN) 500 mg tablet 1 TABLET TWICE DAILY 12/17/2009 oxyCODONE (ROXICODONE) 5 mg immediate release tablet Take 1 tablet (5 mg total) by mouth every 6 (six) hours if needed for severe pain. Max Daily Amount: 20 mg 20 tablet 09/04/2024 documented as of this encounter Ordered Prescriptions Prescription Sig Dispense Quantity Refills Last Filled Start Date End Date ibuprofen (ADVIL,MOTRIN) 600 mg tablet Take 1 tablet (600 mg total) by mouth every 8 (eight) hours if needed for mild pain. 60 tablet 09/04/2024 acetaminophen (TYLENOL) 500 mg tablet Take 2 tablets (1,000 mg total) by mouth every 6 (six) hours if needed for mild pain. 60 tablet 09/04/2024 oxyCODONE (ROXICODONE) 5 mg immediate release tablet Take 1 tablet (5 mg total) by mouth every 6 (six) hours if needed for severe pain. Max Daily Amount: 20 mg 20 tablet 09/04/2024 documented in this encounter Discharge Disposition Disposition Code Departure Means Destination Comment s Home or Self Care Wheelchair documented in this encounter Progress Notes * Destiny Patel RN - 09/04/2024 1:48 PM EST Problem: Sensory:Periop Procedure - Major Goal: Demonstrates/reports adequate pain control 09/04/2024 1358 by Destiny Stanton RN Outcome: Completed 09/04/2024 1348 by Destiny Stanton RN Outcome: Progressing Problem: Physical Regulation: Periop Procedure - Major Goal: Postoperative complications will be avoided or minimized 09/04/2024 1358 by Destiny Stanton RN Outcome: Completed 09/04/2024 1348 by Destiny Stanton RN Outcome: Progressing Goal: Ability to maintain clinical measurements within normal limits will improve 09/04/2024 1358 by Destiny Stanton RN Outcome: Completed 09/04/2024 1348 by Destiny Stanton RN Outcome: Progressing Pt and daughter verbalized understanding of all discharge instructions documented in this encounter H&P Notes * Umesh Lora DO - 09/04/2024 9:30 AM EST Patient seen and examined no interval change in his history. I consented him for robotic assisted bilateral inguinal hernia repair with mesh. I explained the procedure in detail including the risk procedure which include bleeding, infection, damage to surrounding structures and need for the procedures. He understands and wishes to move forward with the procedure. Source Note - Umesh Lora DO - 08/05/2024 10:45 AM EST Images from the original note were not included. REFERRING PROVIDER: PCP REASON FOR VISIT: Bilateral inguinal hernia HPI: This is a very pleasant 64 y.o.-year-old male without any significant past medical history who presents for consultation regarding known bilateral inguinal hernia. The patient reports that he is pretty active. He denies any smoking history. Does report having some upper respiratory symptoms with a cough back in May. Nose discomfort in the right groin from time to time. He has no imaging. Denies any blood thinners. ROS The following symptom list was reviewed with the patient: GENERAL: fevers, chills, sweats, change in weight, fatigue or malaise HEENT: changes in hearing or vision, nasal problems NECK: lumps, goiter, or significant neck swelling RESPIRATORY: cough, wheezing, shortness of breath, pleuritic chest pain CARDIOVASCULAR: chest pain, leg swelling or palpitations GI: abdominal discomfort, blood in stools or black stools : dysuria, frequency or incontinence MUSCULOSKELETAL: joint pain or swelling, back pain, or muscle pain SKIN: lesions, rash or itching PSYCH: sleep disturbance or depression HEMATOLOGY: prolonged bleeding, easy bruisability or swollen nodes ENDOCRINE: cold or heat intolerance, polyuria, polydipsia or goiter NEURO: persistent headache, syncope, seizures, weakness or numbness The patient reported the following as positive: As per HPI; bilateral inguinal hernia PAST MEDICAL HISTORY: I personally reviewed the following past medical history with the patient and updated the records as appropriate. Patient Active Problem List Diagnosis Date Noted Back pain 12/17/2009 Depression 12/17/2009 Shoulder pain 12/17/2009 Tobacco use disorder 12/17/2009 PAST SURGICAL HISTORY: I personally reviewed the following past surgical history with the patient and updated the records as appropriate. Past Surgical History: Procedure Laterality Date TONSILLECTOMY PROCEDURE: HISTORICAL TONSILLECTOMY SOCIAL HISTORY: I personally reviewed the following social history with the patient and updated the records as appropriate. Social History Tobacco Use Smoking status: Every Day Current packs/day: 1.50 Types: Cigarettes Smokeless tobacco: Not on file Substance Use Topics Alcohol use: Yes Alcohol/week: 7.5 standard drinks of alcohol FAMILY HISTORY: I personally reviewed the following family medical history with the patient and updated the recordsas appropriate. No family history on file. ACTIVE MEDICATIONS: Medication list was reviewed/updated with the patient. Outpatient Medications Marked as Taking for the 08/05/24 encounter (Consult) with Umesh Lora, DO Medication Sig Dispense Refill alfuzosin (UROXATRAL) 10 mg 24 hr tablet Take 1 tablet (10 mg total) by mouth 1 (one) time each day. FLUoxetine (PROzac) 40 mg capsule 1 CAPSULE EVERY MORNING gabapentin (NEURONTIN) 300 mg capsule TAKE ONE CAPSULE BY MOUTH EVERY DAY NEEDED FOR PAIN loratadine (CLARITIN) 10 mg tablet Take 1 tablet (10 mg total) by mouth 1 (one) time each day. naproxen (NAPROSYN) 500 mg tablet 1 TABLET TWICE DAILY nebivoloL (BYSTOLIC) 5 mg tablet Take 1 tablet (5 mg total) by mouth 1 (one) time each day. oxyCODONE-acetaminophen (PERCOCET) 5-325 mg per tablet 1 TABLET EVERY 4 TO 6 HOURS NEEDED ALLERGIES: No Known Allergies PHYSICAL EXAM: Visit Vitals Ht 1.981 m (78 ) Wt 119 kg (263 lb 6.4 oz) BMI 30.44 kg/m?? Smoking Status Every Day BSA 2.53 m?? GENERAL: Awake, alert, and in no acute distress. HEAD: Normocephalic, atraumatic. EYES: Pupils equal and round. Anicteric sclera. Conjunctiva normal. NECK: Thyroid midline and without goiter, nodule, tenderness, or mass. No appreciable adenopathy. CHEST: Non-tender. LUNGS: Clear to auscultation bilaterally without wheezing, rales, or rhonchi. CARDIAC: RRR, normal S1/S2, no appreciable murmur. ABDOMEN: Soft, non-tender, non-distended. No appreciable mass. No organomegaly. No ventral or umbilical hernia noted. . : Penis without notable lesion. Scrotum grossly normal. With Valsalva bilateral inguinal hernianotable cular lymph nodes without adenopathy. EXTREMITIES: Warm, well-perfused. pretibial edema. BACK: Grossly normal range of motion. SKIN: Warm, no lesion or rash noted on visible skin. NEURO: Alert and oriented, appropriate. Motor and sensory grossly intact. LABS: Lab results, as listed below, were reviewed and discussed with the patient. @LASTDATALABS@ No pertinent labs. IMAGING: No pertinent imaging. ................................................................................ ............................................................. ASSESSMENT & PLAN: 1. Non-recurrent bilateral inguinal hernia without obstruction or gangrene Patient does have bilateral inguinal hernia on examination. He wishes to undergo robotic assisted bilateral inguinal hernia repair with mesh. Explained the procedure in detail including the risk procedure which includes bleeding, infection, damage surrounding structures need for further procedures he understands these risks and wished to move for the procedure. Decision made for surgery. It was a pleasure seeing Darin Montalvo at the [facility] today. The patient has been instructed tocall with any additional questions or concerns. Thank you for this referral. Dr. Umesh Lora DO General Surgery [facility] A Member of [facility] W [phone] F [phone] [place] [address] [email or web address] No ref. provider found documented in this encounter Procedure Notes * Umesh Lora DO - 09/04/2024 10:31 AM EST DAVINCI BILATERAL INGUINAL HERNIA REPAIR WITH MESH (B) OPERATIVE NOTE Date: 09/04/2024 Location: [facility] OR Name: Darin Montalvo : 1960, Diagnosis Pre-op Diagnosis * Non-recurrent bilateral inguinal hernia without obstruction or gangrene [K40.20] Post-op Diagnosis * Non-recurrent bilateral inguinal hernia without obstruction or gangrene [K40.20] Procedures Robotic assisted repair of bilateral inguinal hernia with mesh, CPT 93718-21 Additional Procedures Indications: Darin Montalvo is an 64 y.o. male who is having surgery for Bilateral inguinal hernia K40.20. I consented the patient for robotic assisted bilateral inguinal hernia repair with mesh. Explained the risks of procedure the risk of bleeding, infection, damage surrounding structures and need for further procedures. He understands that he is at increased risk of recurrence given he is a smoker. Surgeon(s) & Box Puller(s) * Umesh Lora DO - Primary Box Puller- Edilma Leger Anesthesia: general ASA: II Estimated Blood Loss: Minimal Drains: None Specimen: none Procedure Details: Patient was preoperatively consented the preop holding area. He was then brought to the operating room placed supine position on the operative table. He was then placed under general endotracheal anesthesia. He received preoperative antibiotics as well as Venodyne boots. An orogastric tube was passed. His arms were left tucked at his side. Bony processes were made sure to be padded appropriately.His abdomen and groins were prepped and draped in normal sterile fashion. Formal timeout was included seeing patient's name, date of , procedure to be performed, identifying all those involved in the procedure. The abdomen was then entered through a 5 mm incision made in the patient's left uppe r quadrant utilizing a direct Optiview technique with a nonbladed 5 mm trocar and a 0 degree laparoscope. The abdomen was then insufflated 15 mmHg. There was no injury made upon entry to the abdomen.I then placed 2 right sided upper abdominal 8 mm robotic trocars 1 at the midclavicular line and 1 just off midline to the right in the subxiphoid position. The initial 5 mm Optiview trocar was exchanged for an 8 mm robotic trocar the patient was placed in Trendelenburg position and the excised robotic system was docked. Patient had bilateral direct defects. He started on the right side performing a dissection of the peritoneal flap from the right ASIS to the right medial umbilical ligament. This was taken down medially to the pubic tubercle and we did not immediately reduce the direct defectbut started out laterally again. Peritoneal plane keeping the inferior epigastrics safe against theabdominal wall. I stayed right on the peritoneum leaving the fat against the right anterior abdominal wall. There was no indirect defect noted but we did get the peritoneum well back from the convergence of the right gonadal vessels and vas deferens. The direct defect with incarcerated preperitoneal fat was reduced back. The myopectineal orifice was completely dissected out and a right-sided ilioinguinal block was performed by my bedside executive administrative assistant. The exact replica dissection was completed on the left side. Of note there was no significant cord lipoma to be reduced on either side. Given he had direct defects and he is a smoker I decided to place a extra-large Bard 3D max meshes bilaterally. These were placed in the preperitoneal space brought into the abdomen by my bedside executive administrative assistant. I then sutured them both medially at the level of Gopi's ligament with 3-0 Vicryl and laterally and anterior to the iliopubic tract again with a 3-0 Vicryl. I did overlap these 2 meshes in the middle with good 3 to 4 cm overlap medially to prevent tacked against a direct recurrence. We did have 2-2 and half centimeters below the pubic tubercle in order to keep from a posterior recurrence. The peritoneum was well back from our posterior mesh edge on both sides. I then sutured to the peritoneal defects in running fashion with a 2-0 Quill suture. Trocars were removed after desufflated the abdomen the robot had been undocked. Chronic trocar sites were closed with 4 Monocryl in subicular fashion with Dermabond. All instrument counts needle count sponge counts correct x 2. I was present for the entire procedure. Patient was woken on the operative table transferred stretcher brought back in stable condition. I updated the patient's family on the procedure. Bedside executive administrative assistant was integral in instrument exchange. I did perform surgical debriefing following procedure. Findings: Bilateral direct inguinal hernias Complications: None; patient tolerated the procedure well. Disposition: PACU - hemodynamically stable. Condition: stable * Maren Orozco RN - 09/04/2024 8:16 AM EST EKG DONE * Maren Orozco RN - 09/04/2024 8:00 AM EST ALYCE-DAUGHTER [phone] documented in this encounter Plan of Treatment Upcoming Encounters Date Type Department Care Team (Late st Contact Info) Description 10/20/2024 10:45 AM EDT Office Visit General Surgery - [place] [address] [place] [phone] Umesh Lora DO [address] [place] [phone] documented as of this encounter Procedures Procedure Name Priority Date/Time Associated Diagnosis Comments SD LAP SURG REPR RECURRENT INGUINAL HERNIA 09/04/2024 9:59 AM EST Non-recurrent bilateral inguinal hernia without obstruction or gangrene Special Needs ROBOTIC REPAIR BILATERAL INGUINAL HERNIA W/MESH - ASKING 120 MINUTES FOR THIS CASE ECG 12-LEAD Routine 09/04/2024 8:22 AM EST documented in this encounter Results * EKG 12 lead (09/04/2024 8:22 AM EST) Ventricular Rate ECG 61 BPM GEMUSE Atrial Rate 61 BPM GEMUSE P-R Interval 150 ms GEMUSE QRS Duration 94 ms GEMUSE Q-T Interval 442 ms GEMUSE QTc 444 ms GEMUSE P Wave Pride 28 degrees GEMUSE R Pride -15 degrees GEMUSE T Pride 29 degrees GEMUSE ECG Interpretation Normal sinus rhythm Normal ECG No previous ECGs available Confirmed by Jonna GUY YUFENG ([id number]) on 09/04/2024 5:21:46 PM GEMUSE 09/04/2024 8:22 AM EST 09/04/2024 5:21 PM EST us [facility] MD ECG ORDERABLES Final Result GEMUSE documented in this encounter Visit Diagnoses Diagnosis Non-recurrent bilateral inguinal hernia without obstruction or gangrene- Primary documented in this encounter Admitting Diagnoses Diagnosis Non-recurrent bilateral inguinal hernia without obstruction or gangrene documented in this encounter Administered Medications Inactive Administered Medications - up to 3 most recent administrations Medication Order MAR Action Action Date Dose Rate Site acetaminophen (TYLENOL) tablet 1,000 mg 1,000 mg, oral, Once as needed, mild pain, Starting on Kayleen 09/04/24 at 1330, For 1 dose, Phase II/On Unit, If patient has not received tylenol in the last 6 hours diphenhydrAMINE (BENADRYL) injection 12.5 mg 12.5 mg, intravenous, Once as needed, nausea and vomitting, Starting on Kayleen 09/04/24 at 1330, For 1 dose, Phase II/On Unit, Give as THIRD antiemetic in order set. Only if this has not been given in the operating room or in PACU. haloperidol lactate (HALDOL) injection 1 mg 1 mg, intravenous, Once as needed, nausea and vomitting, Starting on Kayleen 09/04/24 at 1330, For 1 dose, Phase II/On Unit, Give as SECOND antiemetic in order set. Only if this has not been given in the operating room or in PACU. May be ordered via either intramuscular or intravenous route. If ordered IV, maximum of 5 mg/minute. lactated Ringer's infusion intravenous, Continuous PRN, Starting on Kayleen 09/04/24 at 1043, Anesthesia Intraprocedure Continued from OR 09/04/2024 12:24 PM EST New Bag 09/04/2024 10:43 AM EST New Bag 09/04/2024 9:55 AM EST ondansetron (PF) (ZOFRAN) injection 4 mg 4 mg, intravenous, Once as needed, nausea, vomiting, Starting on Kayleen 09/04/24 at 1330, For 1 dose, Phase II/On Unit, Give as FIRST antiemetic in order set Infuse over 2 minutes. oxyCODONE (ROXICODONE) immediate release tablet 5 mg 5 mg, oral, Once as needed, moderate pain, Starting on Kayleen 09/04/24 at 1330, For 1 dose, Phase II/On Unit documented in this encounter Discontinued Medications Medication Sig Discontinue Reason Start Date End Da te nebivoloL (BYSTOLIC) 5 mg tablet Take 1 tablet (5 mg total) by mouth 1 (one) time each day. 08/22/2023 08/27/2024 oxyCODONE-acetaminophe n (PERCOCET) 5-325 mg per tablet 1 TABLET EVERY 4 TO 6 HOURS NEEDED Stop Taking at Discharge 09/04/2024 documented as of this encounter Historical Medications * This list may reflect changes made after this encounter. amLODIPine (NORVASC) 5 mg tablet Take 1 tablet (5 mg total) by mouth 1 (one) time each day. fluticasone propionate (FLONASE) 50 mcg/actuation nasal spray Administer 2 sprays into each nostril if needed for rhinitis. Shake gently. Before first use, prime pump. After use, clean tip and replace cap. added in this encounter Active and Recently Administered Medications Times are shown in EST. Scheduled Medication Order 09/02/2024 09/03/2024 09/04/2024 ceFAZolin (ANCEF) 2 g in sterile water 20 mL IV syringe (COMPLETED) 2 g, intravenous, Administer over 3 Minutes, Once, On Kayleen 09/04/24 at 0845, For 1 dose, Preprocedure, -IV Push over 3 minutes -Administer within 60 minutes of incision, Indication: Prophylaxis-Surgical 0956 (Handoff - Prov ider: Maren Orozco RN - Comment: YUMI HIGH)1015 (New Bag - Provider: ANNIA Correa) PRN Medication Order 09/02/2024 09/03/2024 09/04/2024 acetaminophen (TYLENOL) tablet 1,000 mg 1,000 mg, oral, Once as needed, mild pain, Starting on Kayleen 09/04/24 at 1330, For 1 dose, Phase II/On Unit, If patient has not received tylenol in the last 6 hours bupivacaine-EPINEPHrine (MARCAINE w/EPI) 0.25 %-1:200,000 injection (CANCELED) As needed, Starting on Kayleen 09/04/24 at 1030, Intraprocedure 1030 (Given - Provid er: Umesh Lora DO) diphenhydrAMINE (BENADRYL) injection 12.5 mg 12.5 mg, intravenous, Once as needed, nausea and vomitting, Starting on Kayleen 09/04/24 at 1330, For 1 dose, Phase II/On Unit, Give as THIRD antiemetic in order set. Only if this has not been given in the operating room or in PACU. haloperidol lactate (HALDOL) injection 1 mg 1 mg, intravenous, Once as needed, nausea and vomitting, Starting on Kayleen 09/04/24 at 1330, For 1 dose, Phase II/On Unit, Give as SECOND antiemetic in order set. Only if this has not been given in the operating room or in PACU. May be ordered via either intramuscular or intravenous route. If ordered IV, maximum of 5 mg/minute. lactated Ringer's infusion (CANCELED) intravenous, Continuous PRN, Starting on Kayleen 09/04/24 at 1043, Anesthesia Intraprocedure 0955 (New Bag - Prov ider: ANNIA Correa)1043 (New Bag - Provider: ANNIA Correa)1221 (Stopped - Provider: ANNIA Correa)1224 (Continued from OR - Provider: Victorina Cheatham RN (Dee) - Comment: 900 on arrival to pcu) ondansetron (PF) (ZOFRAN) injection 4 mg 4 mg, intravenous, Once as needed, nausea, vomiting, Starting on Kayleen 09/04/24 at 1330, For 1 dose, Phase II/On Unit, Give as FIRST antiemetic in order set Infuse over 2 minutes. oxyCODONE (ROXICODONE) immediate release tablet 5 mg 5 mg, oral, Once as needed, moderate pain, Starting on Kayleen 09/04/24 at 1330, For 1 dose, Phase II/On Unit documented in this encounter Orders Medications Ordered That Krishna ht Not Have Been Administered Count Last Ordered Date First Ordered Date acetaminophen (TYLENOL) tablet 1,000 mg 1 0 09/04/2024 bupivacaine-EPINEPHrine (MAR TIERRA w/EPI) 0.25 %-1:200,000 injection 1 09/04/2024 ceFAZolin (ANCEF) 2 g in all rile water 20 mL IV syringe 1 09/04/2024 diphenhydrAMINE (BENADRYL) i njection 12.5 mg 1 09/04/2024 diphenhydrAMINE (BENADRYL) injection 25 mg 1 09/04/2024 fentaNYL (PF) (SUBLIMAZE) injection 50 mcg 1 09/04/2024 haloperidol lactate (HALDOL) injection 1 mg 2 09/04/2024 HYDROmorphone (DILAUDID) injection 0.5 mg 1 09/04/2024 ondansetron (PF) (ZOFRAN) injection 4 mg 1 09/04/2024 oxyCODONE (ROXICODONE) immed iate release tablet 5 mg 2 09/04/2024 Discharge Count Last Ordered Date First Orde red Date DISCHARGE PATIENT 1 09/04/2024 documented in this encounter Care Teams Relay Engineer Relationship Specialty Start Date End Date Frances Sosa PA [address] [place] [phone] PCP - General Physician Box Puller 09/04/24 documented as of this encounter
--- OUTSIDE RECORDS SUMMARY | 2024-09-18 11:10 | XMS_ITS | Encounter Summary ---
Author Organization [facility] Address [address] [place] [phone] Care Team Providers Care Artist Agent Name Role Phone Frances Sosa Primary Care Provider [phone] Encounter Details Date Type Department Care Team (Late st Contact Info) Description 09/04/2024 9:30 AM EST - 09/04/2024 12:00 PM EST Surgery [facility] Main OR [address] [place] [address] Umesh Lora, DO [address] [address] DAVINCI BILATERAL INGUINAL HERNIA REPAIR WITH MESH [[id number] (CPT??)] Surgery Details Date/Time Status Location OR Service Patient Class Case Cl ass Case Type Trauma Case? 09/04/2024 9:30 AM Posted [facility] OR [facility]OT[facility] OR [address] [place] [address] Outpatient Surgery F - Elective Panel 1 Procedure LRB Anes Op Region Wound Class Comments DAVINCI BILATERAL INGUINAL H ERNIA REPAIR WITH MESH Bilateral general Abdomen Class I/ Clean Surgeon Surgeon Role Service Panel Umesh Lora, DO Primary General 1 Special Needs ROBOTIC REPAIR BILATERAL INGUINAL HERNIA W/MESH - ASKING 120 MINUTES FOR THIS CASE documented in this encounter Social History Tobacco [...] Sign Reading Time Taken Comments Blood Pressure 161/94 09/04/2024 8:07 AM EST Pulse 65 09/04/2024 8:07 AM EST Temperature 36.3 ??C (97.4 ??F) 09/04/2024 8:07 AM ES T Respiratory Rate 16 09/04/2024 8:07 AM EST Oxygen Saturation 97% 09/04/2024 8:07 AM EST Inhaled Oxygen Concentration - - Weight [...] sent through Care Everywhere. * General Anesthesia (Albanian) * Inguinal Hernia Repair: Post-op (Albanian) documented in this encounter Medications at Time [...] Major Goal: Demonstrates/reports adequate pain control 09/04/2024 135 by Destiny Stanton RN Outcome: Completed 09/04/2024 134 by Destiny Stanton RN Outcome: Progressing Problem: Physical Regulation: Periop Procedure - Major Goal: Postoperative complications will be avoided or minimized 09/04/2024 135 by Destiny Stanton RN Outcome: Completed 09/04/20241347 by Destiny Stanton RN Outcome: Progressing Goal: Ability to maintain clinical measurements within normal limits will improve 09/04/2024 135 by Destiny Stanton RN Outcome: Completed 09/04/20241347 by Destiny Stanton RN Outcome: Progressing Pt [...] report having some upper respiratory symptoms with acough back in May. Nose discomfort in the [...] referral. Dr. Umesh Lora DO General Surgery [facility] A Member of [employer] [facility] W [phone] F [phone] [place] [address] [email or web address] No ref. provider found documented in this encounter Procedure Notes * Umesh Lora DO - 09/04/2024 10:31 AM EST ANGUSI BILATERAL INGUINAL HERNIA REPAIR WITH MESH (B) OPERATIVE NOTE Date: 09/04/2024 Location: [facility] OR Name: Darin Montalvo DOB: 1960, Diagnosis Pre-op Diagnosis * Non-recurrent bilateral inguinal hernia without obstruction or gangrene [K40.20] Post-op Diagnosis * Non-recurrent bilateral inguinal hernia without obstruction or gangrene [K40.20] Procedures Robotic assisted repair of bilateral inguinal hernia with mesh, CPT 09224-76 Additional Procedures Indications: Darin Montalvo is an [...] given he is a smoker. Surgeon(s) & Production Recovery Operator(s) * Umesh Lora DO - Primary Production Recovery Operator- Edilma Leger Anesthesia: general ASA: II Estimated [...] ilioinguinal block was performed by my bedside boiler assistant operator. The exact replica dissection was completed on the left side. Of note there was no significant cord lipoma to be reduced on either side. Given he had direct defects and he is a smoker I decided to place a extra-large Bard 3D max meshes bilaterally. These were placed in the preperitoneal space brought into the abdomen by my bedside boiler assistant operator. I then sutured them both medially at [...] the patient's family on the procedure. Bedside boiler assistant operator was integral in instrument exchange. I did perform surgical debriefing following procedure. Findings: Bilateral direct inguinal hernias Complications: None; patient tolerated the procedure well. Disposition: PACU - hemodynamically stable. Condition: stable * Maren Orozco RN - 09/04/2024 8:16 AM EST EKG DONE * Maren Orozco RN - 09/04/2024 8:00 AM EST ALYCE-DAUGHTER [phone] documented in this encounter Plan of Treatment Upcoming Encounters Date Type Department Care Team (Late st Contact Info) Description 10/20/2024 10:45 AM EDT Office Visit General Surgery - [place] 175 [facility] [address] [place] [phone] Umesh Lora DO [address] [facility] [address] [place] [address] documented as of this encounter Procedures Procedure [...] GEMUSE QTc 444 ms GEMUSE P Wave [place] 28 degrees GEMUSE R [place] -15 degrees GEMUSE T [place] 29 degrees GEMUSE ECG Interpretation Normal sinus rhythm Normal ECG No previous ECGs available Confirmed by Jonna GUY YUFENG ([id number]) on 09/04/2024 5:21:46 PM GEMUSE 09/04/2024 8:22 AM EST 09/04/2024 5:21 PM EST us Mt Salinas MD ECG ORDERABLES Final Result GEMUSE documented in this encounter Visit Diagnoses Diagnosis Non-recurrent bilateral inguinal hernia without obstruction or gangrene- Primary Non-recurrent bilateral inguinal hernia without obstruction or gangrene documented in this encounter Admitting Diagnoses Diagnosis [...] hours bupivacaine-EPINEPHrine (MARCAINE w/EPI) 0.25 %-1:200,000 injection As needed, Starting on Kayleen 09/04/24 at 1030, Intraprocedure Given 09/04/2024 10:30 AM EST 30 mL Abdominal Tissue diphenhydrAMINE (BENADRYL) injection 12.5 mg 12.5 mg, [...] (TYLENOL) tablet 1,000 mg 1 0 09/04/2024 ceFAZolin (ANCEF) 2 g in all [...] 09/04/2024 documented in this encounter Care Teams Artist Agent Relationship Specialty Start Date End Date Frances Sosa PA 75 [facility] [address] [place] [address] PCP - General Physician Production Recovery Operator 09/04/24 documented as of this encounter
--- OUTSIDE RECORDS SUMMARY | 2024-09-18 11:10 | XMS_ITS | Clinical Summary ---
Author Organization 175 [facility] Address [address] [place] [address] Phone Care Team Providers Care Supervisor Finish End Name Role Phone Frances Sosa Primary Care Provider [phone] Allergies No known active allergies Medications FLUoxetine (PROzac) 40 mg capsule 1 CAPSULE EVERY MORNING Active naproxen (NAPROSYN) 500 mg tablet 1 TABLET TWICE DAILY 12/18/19 10 Active alfuzosin (UROXATRAL) 10 mg 24 hr tablet Take 1 tablet (10 mg total) by mouth 1 (one) time each day. 04/22/20 24 Active loratadine (CLARITIN) 10 mg tablet Take 1 tablet (10 mg total) by mouth 1 (one) time each day. 07/03/19 25 Active gabapentin (NEURONTIN) 300 mg capsule TAKE ONE CAPSULE BY MOUTH EVERY DAY NEEDED FOR PAIN 12/12/19 24 Active fluticasone propionate (FLONASE) 50 mcg/actuation nasal spray Administer 2 sprays into each nostril if needed for rhinitis. Shake gently. Before first use, prime pump. After use, clean tip and replace cap. Active amLODIPine (NORVASC) 5 mg tablet Take 1 tablet (5 mg total) by mouth 1 (one) time each day. Active oxyCODONE (ROXICODONE) 5 mg immediate release tablet Take 1 tablet (5 mg total) by mouth every 6 (six) hours if needed for severe pain. Max Daily Amount: 20 mg 20 tablet 09/05/19 25 Active acetaminophen (TYLENOL) 500 mg tablet Take 2 tablets (1,000 mg total) by mouth every 6 (six) hours if needed for mild pain. 60 tablet 09/05/19 25 Active ibuprofen (ADVIL,MOTRIN) 600 mg tablet Take 1 tablet (600 mg total) by mouth every 8 (eight) hours if needed for mild pain. 60 tablet 09/05/19 25 Active oxyCODONE-acet aminophen (PERCOCET) 5-325 mg per tablet 1 TABLET EVERY 4 TO 6 HOURS NEEDED 025 Discontinued(St op Taking at Discharge) nebivoloL (BYSTOLIC) 5 mg tablet Take 1 tablet (5 mg total) by mouth 1 (one) time each day. 08/22/19 24 025 Discontinued Active Problems Problem Noted Date Diagnosed Date Non-recurrent bilateral ingu inal hernia without obstruction or gangrene 08/05/2024 Back pain 12/17/2009 Depression 12/17/2009 Shoulder pain 12/17/2009 Tobacco use disorder 12/17/2009 Encounters Date Type Department Care Team Description 09/17/2024 10:00 AM EDT Office Visit General [address] [phone] Umesh Lora, DO Non-recurrent bilateral inguinal hernia without obstruction or gangrene (Primary Dx); S/P bilateral inguinal hernia repair, follow-up exam 09/04/2024 10:01 AM EST Anesthesia Event [facility] OR [address] [place] [phone] Mt Salinas MD Hall, Morriana, SRNA 09/04/2024 9:30 AM EST - 09/04/2024 12:00 PM EST Surgery [facility] OR [address] [place] [phone] Umesh Lora, DO DAVINCI BILATERAL INGUINAL HERNIA REPAIR WITH MESH [[id number] (CPT??)] 09/04/2024 7:53 AM EST - 09/04/2024 2:35 PM EST Hospital Encounter [facility] OR [address] [place] [phone] Umesh Lora, DO Discharge Disposition: Home or Self Care 08/05/2024 10:45 AM EST Consult General [address] [phone] Umesh Lora, DO Non-recurrent bilateral inguinal hernia without obstruction or gangrene (Primary Dx) from Last 3 Months Surgical History Surgery Date Site/Laterality Comments TONSILLECTOMY PROCEDURE: HISTORICAL TONSILLECTOMY COLONOSCOPY Medical History Medical History Date Comments Hypertension Depression Arthritis Anxiety PTSD (post-traumatic stress disorder) Psychiatric illness Joint pain Fractures Adhd Family History Relation Name Status Comments Brother Alive Father Alive Mother (Age ?) ? Sister Alive renal cancer, d m, htn Social History Tobacco Use Types Packs/Day Years [...] Orientation Straight 09/03/2024 3: 19 PM EST Obstetrics History Last Filed Vital Signs Vital Sign Reading Time Taken Comments Blood Pressure 126/76 09/17/2024 9:50 AM EDT Pulse 83 09/17/2024 9:50 AM EDT Temperature 36.7 ??C (98 ??F) 09/04/2024 1:23 PM EST Respiratory Rate 18 09/04/2024 1:23 PM EST Oxygen Saturation 98% 09/04/2024 1:23 PM EST Inhaled Oxygen Concentration - - Weight 116 kg (256 lb 8 oz) 09/17/2024 9:50 AM E DT Height 198.1 cm (6' 6 ) 09/17/2024 9:50 AM EDT Body Mass Index 29.64 09/17/2024 9:50 AM EDT Plan of Treatment Upcoming Encounters Date Type Department Care Team (Late st Contact Info) Description 10/20/2024 10:45 AM EDT Office Visit General Surgery - [place] 175 [facility] [address] [place] [address] Umesh Lora, DO 175 [facility] [address] [place] [address] (work) Health Maintenance Due Date Last Done Comments Pneumococcal Vaccine: 50+ Years (1 of 1 - PCV) 2009 Zoster Vaccines (1 of 2) 2009 Abdominal Aortic Aneurysm (AAA) Screen 07/27/2023 Cholesterol Screening (Lipid Panel) 07/27/2023 Colorectal Cancer Screening: Colonoscopy 07/27/2023 Hepatitis C Screening 07/27/2023 Medicare Annual Wellness Visit 07/27/2023 Social Influencers of Health Screening 07/27/2023 COVID-19 Vaccine (3 - 2023-2 5 season) 2024 06/27/2022, 07/25/2021 Influenza Vaccine (#1) 2024 , 07/25/2021 Depression Screening 12/31/2024 01/01/2024 Falls Risk Assessment 09/04/2025 09/04/2024 DTaP,Tdap,and Td Vaccines (2 - Td or Tdap) 05/20/2034 05/20/2024 RSV Immunization Patients 60 + Years Old (1 - 1-dose 75+ series) 2034 HIB Vaccines Aged Out No longer eligi ble based on patient's age to complete this topic HPV Vaccines Aged Out No longer eligi ble based on patient's age to complete this topic Hepatitis A Vaccines Aged Out No long er eligible based on patient's age to complete this topic Hepatitis B Vaccines Aged Out No long er eligible based on patient's age to complete this topic IPV Vaccines Aged Out No longer eligi ble based on patient's age to complete this topic MMR Vaccines Aged Out No longer eligi ble based on patient's age to complete this topic Meningococcal ACWY Vaccine Aged Out N o longer eligible based on patient's age to complete this topic Meningococcal B Vacine Aged Out No lo nger eligible based on patient's age to complete this topic Pneumococcal Vaccine: Pediatrics (0 to 5 Years) and At-Risk Patients (6 to 64 Years) Aged Out No longer eligible b ased on patient's age to complete this topic RSV Immunization Patients Under 20 months Aged Out No longer eligible b ased on patient's age to complete this topic Varicella Vaccines Aged Out No longer eligible based on patient's age to complete this topic Medical Devices Implanted Type Area Heel Dipper Device Identifier Shelf Expiration Date Model / Serial / Lot Mesh Surg 3d Left Xlg 6.7x4.8 - Sna - [id number] Implanted:Qty: 1 on 09/04/2024 by Umesh Lora, DO at [facility] Surgical Mesh Sling Implants Left: Abdomen CR BARD - DAVOL DIV [id number] 09/26/2028 [id number] / NA / [id number] Mesh Surg 3d Right Xlg 6.7x4.8 - Sna - [id number] Implanted:Qty: 1 on 09/04/2024 by Umesh Lora, DO at [facility] Surgical Mesh Sling Implants Right: Abdomen CR BARD - DAVOL DIV [id number] 07/29/2028 [id number] / NA / [id number] Procedures Procedure Name Priority Date/Time Associated Diagnosis Comments TH AN ENDOTRACHEAL(NO CHARGE) Routine 09/04/2024 10:35 AM EST VT LAP SURG REPR RECURRENT INGUINAL HERNIA 09/04/2024 9:59 AM EST Non-recurrent bilateral inguinal hernia without obstruction or gangrene Special Needs ROBOTIC REPAIR BILATERAL INGUINAL HERNIA W/MESH - ASKING 120 MINUTES FOR THIS CASE ECG 12-LEAD Routine 09/04/2024 8:22 AM EST from Last 3 Months Results * TH AN ENDOTRACHEAL(NO CHARGE) (09/04/2024 10:35 AM EST) Evaristo Cummings SRNA - 09/04/2024 10:35 AM EST ANNIA Correa ? 09/04/2024 10:36 AM General Information and Staff Patient location during procedure: OR Resident/ENVIRONMENTAL HEALTH SAFETY MANAGER: ANNIA Correa Performed by: ANNIA Correa Authorized [...] Salinas MD ANESTHESIA ORDERABLES Final Re sult * EKG 12 lead (09/04/2024 8:22 AM EST) Ventricular Rate ECG 61 BPM GEMUSE Atrial Rate 61 BPM GEMUSE P-R Interval 150 ms GEMUSE QRS Duration 94 ms GEMUSE Q-T Interval 442 ms GEMUSE QTc 444 ms GEMUSE P Wave [place] 28 degrees GEMUSE R [place] -15 degrees GEMUSE T [place] 29 degrees GEMUSE ECG Interpretation Normal sinus rhythm Normal ECG No previous ECGs available Confirmed by Jonna GUY YUFENG ([id number]) on 09/04/2024 5:21:46 PM GEMUSE 09/04/2024 8:22 AM EST 09/04/2024 5:21 PM EST us Mt Salinas MD ECG ORDERABLES Final Result GEMUSE from Last 3 Months Insurance MEDICAID - [place] MEDICARE Advance Directives * Full Code - Default (Latest Code Status on File) Date Activated Date Inactivated Comments 09/04/2024 8:18 AM 09/04/2024 4:40 PM This is order is used when code status has not been discussed with the patient, or code status is otherwise unknown/unconfirmed To update the patient's code status, place a code status order. Do not modify or discontinue any currently active code status orders. Care Teams Supervisor Finish End Relationship Specialty Start Date End Date Frances Sosa PA 75 [facility] 1 [place] [address] PCP - General Physician Macroeconomics Professor 09/04/24
--- OUTSIDE RECORDS SUMMARY | 2024-09-18 11:10 | XMS_ITS | Encounter Summary ---
Author Organization [facility] Address [address] [place] [phone] Care Team Providers Care Service Writer Name Role Phone Frances Sosa Primary Care Provider [phone] Reason for Visit * Reason Comments Post-op Hernia Encounter Details Date Type Department Care Team ([facility] Contact Info) Description 09/17/2024 10:00 AM EDT Office Visit General Surgery - [place] 175 [facility] [address] [place] [phone] Umesh Lora, DO 175 [facility] [address] [place] [address] Non-recurrent bilateral inguinal hernia without obstruction or gangrene (Primary Dx); S/P bilateral inguinal hernia repair, follow-up exam Social History Tobacco Use Types Packs/Day Years [...] Pulse 83 09/17/2024 9:50 AM EDT Temperature - - Respiratory Rate - - Oxygen Saturation - - Inhaled Oxygen Concentration - - Weight 116 kg (256 lb 8 oz) 09/17/2024 9:50 AM E DT Height 198.1 cm (6' 6 ) 09/17/2024 9:50 AM EDT Body Mass Index 29.64 09/17/2024 9:50 AM EDT documented in this encounter Progress Notes * Umesh Lora DO - 09/17/2024 10:00 AM EDT Reason for visit: Follow-up -status post robotic assisted bilateral inguinal hernia repair with mesh HPI: This is a pleasant 64 y.o. patient who was previously evaluated in my office for bilateral inguinalhernia repair with mesh. On laparoscopy with a robotic repair he had direct left and direct right inguinal hernias with the left being larger than the right. I placed bilateral extra-large Bard 3D max meshes. Patient reports that he is having a little bit of increased tenderness in the right side with more swelling on the right side than left. He is abstaining from lifting any over 15 pounds. There have been no interval changes in past medical/surgical history, medications, social history, or family medical history. Please refer to EMR or my prior note for additional details. ROS GENERAL: No significant weight loss or fever RESPIRATORY: No cough or shortness of breath CARDIOVASCULAR: No chest pain GI: No abdominal discomfort, see HPI SKIN: No rash, jaundice ACTIVE MEDICATIONS: Medication list was reviewed/updated with the patient. No outpatient medications have been marked as taking for the 09/17/24 encounter (Office Visit) with Umesh Lora DO. ALLERGIES: @ALL@ PHYSICAL EXAM: Visit Vitals BP 126/76 Pulse 83 Ht 1.981 m (78 ) Wt 116 kg (256 lb 8 oz) BMI 29.64 kg/m?? Smoking Status Former BSA 2.51 m?? APPEARANCE: Alert and in no acute distress EYES: conjunctiva and sclera normal. HEART: RRR LUNG: non-labored respirations, patient is comfortable on room air without adventitious sounds ABDOMEN: Seroma noted on the right to be larger than the 1 on the left. No recurrence noted on my examination of either inguinal regions. EXTREMITIES: Extremities warm and well perfused without edema NEURO: Awake, alert and oriented, moves all extremities SKIN: Skin color, texture normal. LABS: No results found for: WBC , HGB , HCT , MCV No results found for: NA , K , CO2 , CL , BUN , GLU , ALB , ALKPHOS , TP IMAGING: None ................................................................................ ............................................................. ASSESSMENT 1. Non-recurrent bilateral inguinal hernia without obstruction or gangrene 2. S/P bilateral inguinal hernia repair, follow-up exam PLAN: 1. Patient is doing well postoperatively status post robotic assisted bilateral inguinal hernia repair with mesh. Slightly increased swelling on the right side compared to the left. I do want to see him in 1 month I do want him to stand from lifting anything over 15 pounds for the next 4 weeks. I explained he can use ice and heat to the groin. Continue with Tylenol ibuprofen. It was a pleasure seeing @TITLE@ Darin Montalvo at the Surgery [facility] today. The patient has been instructed to call with any additional questions or concerns. @ESIG@ cc: documented in this encounter Plan of Treatment Upcoming Encounters Date Type Department Care Team (Late st Contact Info) Description 10/20/2024 10:45 AM EDT Office Visit General Surgery - [place] [address] [phone] Umesh Lora DO [address] [address] documented as of this encounter Visit Diagnoses Diagnosis Non-recurrent bilateral inguinal hernia without obstruction or gangrene- Primary S/P bilateral inguinal hernia repair, follow-up exam documented in this encounter Care Teams Service Writer Relationship Specialty Start Date End Date Frances Sosa PA 75 [facility] 1 [place] [address] PCP - General Physician Mortgage Lender 09/04/24 documented as of this encounter
== END 2024-09-18 10:27 | disposition home or self-care (01) ==
LOC: HO.PMC 09:59
PROVIDERS: PCP Internal Medicine; Visit Provider Nurse Practitioner Family
DX: Z79.891 Long term (current) use of opiate analgesic (principal); G89.4 Chronic pain syndrome; M47.816 Spondylosis without myelopathy or radiculopathy, lumbar region; M17.0 Bilateral primary osteoarthritis of knee; M51.369 Other intervertebral disc degeneration, lumbar region without mention of lumbar back pain or lower extremity pain; M47.812 Spondylosis without myelopathy or radiculopathy, cervical region; Z98.890 Other specified postprocedural states; Z87.19 Personal history of other diseases of the digestive system
CPT/HCPCS: 99214; G2211

== ENCOUNTER → 2024-09-18 09:58 | Outpatient (BNVA) | payer MEDICARE, MEDICAID, SELFPAY | PROVIDERS: PCP Internal Medicine; Visit Provider Nurse Practitioner Family | DX: G89.4 Chronic pain syndrome (principal); M47.816 Spondylosis without myelopathy or radiculopathy, lumbar region; M17.0 Bilateral primary osteoarthritis of knee; M51.369 Other intervertebral disc degeneration, lumbar region without mention of lumbar back pain or lower extremity pain; M47.812 Spondylosis without myelopathy or radiculopathy, cervical region; Z51.81 Encounter for therapeutic drug level monitoring; Z87.19 Personal history of other diseases of the digestive system; Z79.891 Long term (current) use of opiate analgesic; Z98.890 Other specified postprocedural states | CPT/HCPCS: 99212 ==

== ENCOUNTER 2024-10-16 10:30 | Outpatient (AMB) | payer MEDICARE, MEDICAID, SELFPAY ==
--- NOTE | 2024-10-16 10:32 | A.OFFVIS_ITS ---
Vital Signs 10/16/24 10:39 Height 6 ft 3 in Weight 253 lb 6 oz BMI 31.7 BP 140/101 H Blood Pressure Location Lt brachial Position Sitting Pulse 90 Pulse Source Pulse Oximeter Pulse Oximetry (%) 98 Oxygen Delivery Method Room Air Intake Visit Reasons: Pill count Intake Note: Darin comes in today for a pill count to oxycodone, patient should have 69 tablets and presents with 80 tablets which he last took today 10/16/24 at 8:30am. Pain today 7/10 Bushing Press Operator Required: No Accompanied by: Self / Same As Patient Allergies No Known Allergies Allergy (Verified 10/16/24 10:39) HPI Comments Details: Darin presents today for his pill count. He is supposed to have #69 pills in his possession and has #80. This demonstrates a responsible attitude in regards to the opioid regimen. His primary pain is concentrated within the neck and lower back, rating current pain levels at 7/10. This represents an improvement, as previously the pain had been worse. Recent activities such as a prolonged hike aggravated his condition. Patient reports adequate analgesia without noted side effects. Pain is rated at 7/10. The patient has osteoarthritis of the knees, for which earlier Duralane injections provided relief. His condition presently remains controlled, with pain returning after strenuous activity. He recently underwent a double inguinal hernia repair with mesh in August, and while recovering well, he notes a lump at the right groin but with resolved surrounding swelling. His current cannabinoids usage for ancillary pain relief has been beneficial without reported adverse drug interactions. Denies any fever, chills, cough, sedation, nausea, dizziness, urinary retention, instability, weakness, bladder or bowel dysfunction or saddle anesthesia. Past Procedures: 11/29/23: Left knee Durolane injection-30% pain relief 09/06/23: Right knee Durolane injection-100% pain relief [facility] Medical History Closed fracture of left distal fibula Cervicalgia Bilateral knee pain Chronic right hip pain Seasonal allergies Cervical spondylosis Degeneration of intervertebral disc of lumbar region Lumbar spinal stenosis Insomnia Depression with anxiety Surgical History H/O colonoscopy H/O right inguinal hernia repair Social History Alcohol intake: former Patient Tobacco Use Status: Former Tobacco user Current occupational status: retired Review of Systems Const All systems reviewed & are unremarkable except as noted in HPI and below Physical Exam Vital Signs: Last Vital Signs Pulse 90 10/16/24 10:39 BP 140/101 H 10/16/24 10:39 Pulse Ox 98 10/16/24 10:39 Oxygen Delivery Method Room Air 10/16/24 10:39 BMI result Body Mass Index 31.7 On exam today: Appears afebrile. Alert and oriented. Mood and affect appropriate. Follows and participates in conversation appropriately. Respiratory effort is unlabored. No cough. Able to transition from sit to stand unassisted. Ambulates with bilaterally normal heel strike and toe off. Able to stand and walk on toes and heels. Extrem General: Yes capillary refill normal, Yes no clubbing, cyanosis or edema and Yes no calf tenderness Psych Appearance: grossly normal Mental Status: mental status grossly normal Speech and movement: Normal speech and movement present Affect: normal affect Attitude: cooperative Thought process: Normal thought process present Thought content: Normal thought content present, suicidality (none), no hallucinations and Depressive thoughts present Insight: Good insight present (Psych) Judgement: Good judgement present (Psych) Results Reviewed Results Reviewed: Impression: Mild dextroconvex lumbar scoliosis and moderately severe lumbar spondylosis superimposed upon 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 There are multilevel moderate to large size L3-L4 through L5-S1 intervertebral disc protrusions there is multilevel facet arthropathy. L3-4 level posterior and right paramedian-posterolateral disc protrusion with displacement of extraforaminal right L3 nerve root. Mild central canal stenosis and moderate narrowing of lateral recesses. Moderately severe right neural foraminal narrowing. L4-L5 level large posterior and right paramedian and posterolateral disc protrusion. Severe canal stenosis with severe crowding of intrathecal nerve roots. Severe right neural foraminal narrowing and moderately severe left neural foraminal narrowing. There L5-S1 moderate posterior and right paramedian slightly right posterolateral disc protrusion. The right posterior paramedian component demonstrates small peripheral annular fissuring resultant severe compression of right S1 nerve root at the right lateral recess. Small focal disc herniation at this level as possible. Moderate bilaeral narrowing of lateral recesses. Assessment & Plan Assessment & Plan (1) Opioid contract exists: Code(s): Z79.891 - terminal make up operator (current) use of opiate analgesic Category: Medical (2) Chronic pain syndrome: Code(s): G89.4 - Chronic pain syndrome Category: Medical (3) Lumbar spondylosis: Code(s): M47.816 - Spondylosis without myelopathy or radiculopathy, lumbar region Category: Medical (4) Bilateral primary osteoarthritis of knee: Code(s): M17.0 - Bilateral primary osteoarthritis of knee Category: Medical (5) Degeneration of intervertebral disc of lumbar region: Code(s): M51.36 - Other intervertebral disc degeneration, lumbar region Category: Medical (6) Cervical spondylosis: Code(s): M47.812 - Spondylosis without myelopathy or radiculopathy, cervical region Category: Medical Plan Patient has shown accountability for his medication regimen and the pill count was accurate. The patient reported no noted side effects. There is no evidence of misuse, abuse or diversion at this time. MassPAT reviewed and consistent with patient's history. No adverse effects necessitate changes in the pain regimen, and use of adjunctive cannabis preparations seems beneficial. Script for oxycodone 5 mg TID prn sent with advanced date of 11/10/24. Patient has Narcan at home. Encouraged daily physical activity, adequate hydration, dietary fiber, weight optimization, and well balanced diet. Patient has upcoming follow up with surgeon s/p recent hernia repair. Patient reports his recovery from hernia repair is largely complete, with focus on resolving any residual lump near the surgical site. All questions were answered and patient is in agreement of plan. Follow up in 4- 5 weeks for pill count and sooner if needed. Patient was informed and verbally consented to the use of an ambient scribe for clinic note documentation during this visit. Medications: Refilled oxycodone Partial Fill upon patient request. 5 mg PO TID 30 days PRN 90 tabs 0RF pain (scale score 7-10) M17.0 - Bilateral primary osteoarthritis of knee, M47.812 - Spondylosis without myelopathy or radiculopathy, cervical region, M51.36 - Other intervertebral disc degeneration, lumbar region, Z79.891 - terminal make up operator (current) use of opiate analgesic Coding Level of Care Code Est Pt Level 4 (05136) Complex EM visit Add On G2211 Diagnoses Opioid contract exists Z79.891 Chronic pain syndrome G89.4 Lumbar spondylosis M47.816 Bilateral primary osteoarthritis of knee M17.0 Degeneration of intervertebral disc of lumbar region M51.36 Cervical spondylosis M47.812
[2024-10-16 10:39] VITALS: BP 140/101; PULSE 90; O2SAT 98; BMI 31.7
--- OUTSIDE RECORDS SUMMARY | 2024-10-16 12:38 | XMS_ITS | Clinical Summary ---
Author Organization [employer] Address [address] [place] [address] [address] [place] [address] Care Team Providers Care Oceanology Teacher Name Role Phone Unavailable Primary Care Provider Unavailabl e Active Problems Problem Noted Date Diagnosed Date Grief at loss of child 01/16/2024 Moderate episode of recurrent major depressive d isorder 01/16/2024 Anxiety 01/16/2024 Positive screening for depre ssion on 9-item Patient Health Questionnaire (PHQ-9) 01/16/2024 Social History Tobacco Use Types Packs/Day Years Used Date Smoking Tobacco: Never Assessed Depression Answer Date Recorded Patient Health Questionnaire-9 Score 8 01/01/2024 Patient Health Questionnaire-9 Score 8 01/01/2024 Last PHQ-9: Questionnaire Data Not on file 0 01/01/2024 Depression Answer Date Recorded Patient Health Questionnaire-2 Score 3 01/01/2024 Sex and Gender Information Value Date Recorded Sex Assigned at Male 12/31/2023 3:19 PM EDT Legal Sex Male 8:33 PM EDT Gender Identity Male 12/31/2023 3:20 PM EDT Sexual Orientation Straight 12/31/2023 3: 20 PM EDT Plan of Treatment Health Maintenance Due Date Last Done Comments CT Colonography 1959 Colonoscopy 1959 Colorectal Cancer Screening 1959 FIT DNA/Cologuard 1959 FIT 1959 FOBT 1959 Lipid Panel 1959 SDOH Screening 1959 Sigmoidoscopy 1959 Alcohol/Substance Use Screening 1971 Tobacco Screening 1971 Hepatitis C Screening 1977 Pneumococcal Vaccine: 50+ Years (1 of 1 - PCV) 2009 Zoster Vaccines (1 of 2) 2009 COVID-19 Vaccine (3 - 2023-2 5 season) 2024 06/27/2022, 07/25/2021 Influenza Vaccine (#1) 2024 2, 07/25/2021 DTaP/Tdap/Td Vaccines (1 - Tdap) 05/21/2024 05/20/2024 Depression Screening 12/31/2024 01/01/2024, 01/01/2024 RSV Patients and Patients Aged 60 years or older (1 - 1-dose 75+ series) 2034 HIB [...] patient's age to complete this topic Meningococcal Vaccine Aged Out No iza fawad eligible based on patient's age to complete this topic RSV under 20 months Aged Out No longe r eligible based on patient's age to complete this topic Rotavirus Vaccines Aged Out No longer eligible based on patient's age to complete this topic Insurance [place] [address] [place] [phone] [facility]
--- OUTSIDE RECORDS SUMMARY | 2024-10-16 12:38 | XMS_ITS | Clinical Summary ---
Author Organization [address] [facility] Address [address] [place] [address] Phone Care Team Providers Care Retail Sales Associate Seasonal Name Role Phone Frances Sosa Primary Care Provider [phone] Allergies No known active allergies Medications FLUoxetine (PROzac) 40 mg capsule 1 CAPSULE EVERY MORNING Active naproxen (NAPROSYN) 500 mg tablet 1 TABLET TWICE DAILY 0 Active alfuzosin (UROXATRAL) 10 mg 24 hr tablet Take 1 tablet (10 mg total) by mouth 1 (one) time each day. 4 Active loratadine (CLARITIN) 10 mg tablet Take 1 tablet (10 mg total) by mouth 1 (one) time each day. 5 Active gabapentin (NEURONTIN) 300 mg capsule TAKE ONE CAPSULE BY MOUTH EVERY DAY NEEDED FOR PAIN 4 Active fluticasone propionate (FLONASE) 50 mcg/actuation nasal [...] Max Daily Amount: 20 mg 20 tablet 5 Active acetaminophen (TYLENOL) 500 mg tablet Take 2 tablets (1,000 mg total) by mouth every 6 (six) hours if needed for mild pain. 60 tablet 5 Active ibuprofen (ADVIL,MOTRIN) 600 mg tablet Take 1 tablet (600 mg total) by mouth every 8 (eight) hours if needed for mild pain. 60 tablet 5 Active Active Problems Problem Noted Date Diagnosed Date Non-recurrent bilateral ingu inal hernia without obstruction or gangrene 08/05/2024 Back pain 12/17/2009 Depression 12/17/2009 Shoulder pain 12/17/2009 Tobacco use disorder 12/17/2009 Encounters Date Type Department Care Team Description 09/17/2024 10:00 AM EDT Office Visit General Surgery [address] [phone] Umesh Lora, Non-recurrent bilateral inguinal hernia without obstruction or gangrene (Primary Dx); S/P bilateral inguinal hernia repair, follow-up exam 09/04/2024 10:01 AM EST Anesthesia Event [facility] [place] [address] [place] [phone] [place] MD [facility], [facility] 09/04/2024 9:30 AM EST - 09/04/2024 12:[address] [facility] OR [address] [place] [phone] Umesh Lora, DAVINCI BILATERAL INGUINAL HERNIA REPAIR WITH MESH [[id number] (CPT??)] 09/04/2024 7:53 AM EST - 09/04/2024 2:35 PM EST Hospital Encounter [facility] OR [address] [place] [phone] Umesh Lora, Discharge Disposition: Home or Self Care 08/05/2024 10:45 AM EST Consult General Surgery [facility] [address] [phone] Umesh Lora, Non-recurrent bilateral inguinal hernia without obstruction or [...] AM EDT Office Visit General Surgery - [place] [address] [place] [phone] Umesh Lora, DO [address] [place] [address] Health Maintenance Due Date Last Done Comments [...] - 2023-2 5 season) 2024 06/27/2022, 07/25/2021 Depression Screening 12/31/2024 01/01/2024 Influenza Vaccine (Season Ended) 2025 06/27/2022, 07/25/2021 Falls Risk Assessment 09/04/2025 09/04/2024 DTaP,Tdap,and Td Vaccines (2 - Td or Tdap) 05/20/2034 05/20/2024 RSV Immunization Adult Patients (1 - 1-dose 75+ series) 2034 HIB [...] age to complete this topic Meningococcal B Vaccine Aged Out No l onger eligible based on patient's age to complete [...] this topic Medical Devices Implanted Type Area Exhibit Preparator Device Identifier Shelf Expiration Date Model / Serial / Lot Mesh Surg 3d Left Xlg 6.7x4.8 - Sna - [id number] Implanted:Qty: 1 on 09/04/2024 by Umesh Lora, DO at [facility] Surgical Mesh Sling Implants Left: Abdomen CR BARD - DAVOL DIV [id number] 09/26/2028 [id number] / NA / [id number] Mesh Surg 3d Right Xlg 6.7x4.8 - Sna - [id number] Implanted:Qty: 1 on 09/04/2024 by Umesh Lora DO at [facility] Surgical Mesh Sling Implants Right: Abdomen CR BARD - BRITTANY DIV [id number] 07/29/2028 [id number] / NA / [id number] Procedures Procedure Name Priority Date/Time Associated Diagnosis Comments TH AN ENDOTRACHEAL(NO CHARGE) Routine 09/04/2024 10:35 AM EST DC LAP SURG REPR RECURRENT INGUINAL HERNIA 09/04/2024 [...] and Staff Patient location during procedure: OR Resident/GASOLINE DRAGLINE OPERATOR: ANNIA Correa Performed by: ANNIA Correa Authorized [...] GEMUSE QTc 444 ms GEMUSE P Wave Quin[place] 28 degrees GEMUSE R Quin[place] -15 degrees GEMUSE T [place] 29 degrees GEMUSE ECG Interpretation Normal sinus [...] currently active code status orders. Care Teams Retail Sales Associate Seasonal Relationship Specialty Start Date End Date Frances Sosa PA [address] [facility] [address] [place] [address] PCP - General Physician Bake Room Worker 09/04/24
== END 2024-10-16 10:46 | disposition home or self-care (01) ==
LOC: HO.PMC 10:31
PROVIDERS: PCP Internal Medicine; Visit Provider Nurse Practitioner Family
DX: Z79.891 Long term (current) use of opiate analgesic (principal); G89.4 Chronic pain syndrome; M47.816 Spondylosis without myelopathy or radiculopathy, lumbar region; M17.0 Bilateral primary osteoarthritis of knee; M51.369 Other intervertebral disc degeneration, lumbar region without mention of lumbar back pain or lower extremity pain; M47.812 Spondylosis without myelopathy or radiculopathy, cervical region
CPT/HCPCS: 99214; G2211

== ENCOUNTER → 2024-10-16 10:30 | Outpatient (BNVA) | payer MEDICARE, MEDICAID, SELFPAY | PROVIDERS: PCP Internal Medicine; Visit Provider Nurse Practitioner Family | DX: Z51.81 Encounter for therapeutic drug level monitoring (principal); M17.0 Bilateral primary osteoarthritis of knee; M51.360 Other intervertebral disc degeneration, lumbar region with discogenic back pain only; M47.816 Spondylosis without myelopathy or radiculopathy, lumbar region; M47.812 Spondylosis without myelopathy or radiculopathy, cervical region; G89.4 Chronic pain syndrome; Z79.891 Long term (current) use of opiate analgesic | CPT/HCPCS: 99212 ==

== ENCOUNTER 2024-11-20 10:51 | Outpatient (AMB) | payer MEDICARE, MEDICAID, SELFPAY ==
--- NOTE | 2024-11-20 10:52 | A.OFFVIS_ITS ---
Vital Signs 11/20/24 10:59 Height 6 ft 3 in Weight 252 lb 4 oz BMI 31.5 BP 178/97 H Blood Pressure Location Lt brachial Position Sitting Pulse 72 Pulse Source Pulse Oximeter Pulse Oximetry (%) 98 Oxygen Delivery Method Room Air Intake Visit Reasons: Pill count Intake Note: Darin comes in today for a pill count to oxycodone, patient should have 63 tablets and presents with 65 tablets which he last took today 11/20/24 at 8:30am. Pain today 7/10 Installer Soft Top Required: No Accompanied by: Self / Same As Patient Allergies No Known Allergies Allergy (Verified 11/20/24 10:58) HPI Comments Details: Darin presents today for his pill count. He is supposed to have #63 pills in his possession and has #65. This demonstrates a responsible attitude in regards to the opioid regimen. His primary pain is concentrated within the neck and lower back, rating current pain levels at 7/10. This represents an improvement, as previously the pain had been worse. Recent activities such as a prolonged hike aggravated his condition. Patient reports adequate analgesia without noted side effects. Pain is rated at 7/10. The patient has osteoarthritis of the knees, for which Duralane injections provided partial and good relief. He underwent a double inguinal hernia repair with mesh in September at [facility], and has been recovering well, a small lump at the right groin but with resolved surrounding swelling. He is scheduled to undergo CT scan for this with pending surgeon follow up. His current cannabinoids usage for ancillary pain relief has been beneficial without reported adverse drug interactions. Denies any fever, chills, cough, sedation, nausea, dizziness, urinary retention, instability, weakness, bladder or bowel dysfunction or saddle anesthesia. Past Procedures: 11/29/23: Left knee Durolane injection-30% pain relief 09/06/23: Right knee Durolane injection-100% pain relief [facility] Medical History Closed fracture of left distal fibula Cervicalgia Bilateral knee pain Chronic right hip pain Seasonal allergies Cervical spondylosis Degeneration of intervertebral disc of lumbar region Lumbar spinal stenosis Insomnia Depression with anxiety Surgical History H/O colonoscopy H/O right inguinal hernia repair Social History (Reviewed 11/20/24 @ 11:04 by VIRY Whittington Alcohol intake: former Patient Tobacco Use Status: Former Tobacco user Current occupational status: retired Review of Systems Const All systems reviewed & are unremarkable except as noted in HPI and below Physical Exam Vital Signs: Last Vital Signs Pulse 72 11/20/24 10:59 BP 178/97 H 11/20/24 10:59 Pulse Ox 98 11/20/24 10:59 Oxygen Delivery Method Room Air 11/20/24 10:59 BMI result Body Mass Index 31.5 On exam today: Appears afebrile. Alert and oriented. Mood and affect appropriate. Follows and participates in conversation appropriately. Respiratory effort is unlabored. No cough. Able to transition from sit to stand unassisted. Ambulates with bilaterally normal heel strike and toe off. Able to stand and walk on toes and heels. Extrem General: Yes capillary refill normal, Yes no clubbing, cyanosis or edema and Yes no calf tenderness Psych Appearance: grossly normal and well kempt Mental Status: mental status grossly normal Speech and movement: Normal speech and movement present and Clear speech present Affect: normal affect Attitude: cooperative Thought process: Normal thought process present Thought content: Normal thought content present, suicidality (none), no halluci nations and No Depressive thoughts present Insight: Good insight present (Psych) Judgement: Good judgement present (Psych) Results Reviewed Results Reviewed: Impression: Mild dextroconvex lumbar scoliosis and moderately severe lumbar spondylosis superimposed upon 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 There are multilevel moderate to large size L3-L4 through L5-S1 intervertebral disc protrusions there is multilevel facet arthropathy. L3-4 level posterior and right paramedian-posterolateral disc protrusion with displacement of extraforaminal right L3 nerve root. Mild central canal stenosis and moderate narrowing of lateral recesses. Moderately severe right neural foraminal narrowing. L4-L5 level large posterior and right paramedian and posterolateral disc protrusion. Severe canal stenosis with severe crowding of intrathecal nerve roots. Severe right neural foraminal narrowing and moderately severe left neural foraminal narrowing. There L5-S1 moderate posterior and right paramedian slightly right posterolateral disc protrusion. The right posterior paramedian component demonstrates small peripheral annular fissuring resultant severe compression of right S1 nerve root at the right lateral recess. Small focal disc herniation at this level as possible. Moderate bilaeral narrowing of lateral recesses. Assessment & Plan Assessment & Plan (1) Opioid contract exists: Code(s): Z79.891 - FDC (current) use of opiate analgesic Category: Medical (2) Chronic pain syndrome: Code(s): G89.4 - Chronic pain syndrome Category: Medical (3) Lumbar spondylosis: Code(s): M47.816 - Spondylosis without myelopathy or radiculopathy, lumbar region Category: Medical (4) Bilateral primary osteoarthritis of knee: Code(s): M17.0 - Bilateral primary osteoarthritis of knee Category: Medical (5) Degeneration of intervertebral disc of lumbar region: Code(s): M51.36 - Other intervertebral disc degeneration, lumbar region Category: Medical (6) Cervical spondylosis: Code(s): M47.812 - Spondylosis without myelopathy or radiculopathy, cervical region Category: Medical Plan Patient has shown accountability for his medication regimen and the pill count was accurate. The patient reported no noted side effects. There is no evidence of misuse, abuse or diversion at this time. MassPAT reviewed and consistent with patient's history. No adverse effects necessitate changes in the pain regimen, and use of adjunctive cannabis preparations seems beneficial. Script for oxycodone 5 mg TID prn sent with advanced date of 12/11/24. Patient has Narcan at home. Encouraged daily physical activity, adequate hydration, dietary fiber, weight o ptimization, and well balanced diet. All questions were answered and patient is in agreement of plan. Follow up in 4- 5 weeks for pill count and sooner if needed. Medications: Refilled oxycodone Partial Fill upon patient request. 5 mg PO TID 30 days PRN 90 tabs 0RF pain (scale score 7-10) M17.0 - Bilateral primary osteoarthritis of knee, M47.812 - Spondylosis without myelopathy or radiculopathy, cervical region, M51.36 - Other intervertebral disc degeneration, lumbar region, Z79.891 - local company intermodal truck driver (current) use of opiate analgesic Coding Level of Care Code Est Pt Level 4 (38993) Complex EM visit Add On G2211 Diagnoses Opioid contract exists Z79.891 Chronic pain syndrome G89.4 Lumbar spondylosis M47.816 Bilateral primary osteoarthritis of knee M17.0 Degeneration of intervertebral disc of lumbar region M51.36 Cervical spondylosis M47.812
[2024-11-20 10:59] VITALS: BP 178/97; PULSE 72; O2SAT 98; BMI 31.5
--- OUTSIDE RECORDS SUMMARY | 2024-11-20 11:34 | XMS_ITS | Clinical Summary ---
Author Organization 175 [facility] Address [address] [place] [address] Phone Care Team Providers Care Emergency Vehicle Driver Name Role Phone Frances Sosa Primary Care Provider [phone] Allergies No known active allergies Medications FLUoxetine [...] Encounters Date Type Department Care Team Description 11/07/[address] [phone] Umesh Lora, DO Forms/questionnaire s 10/20/2024 10:45 AM EDT Office Visit [address] [phone] Umesh Lora, DO S/P bilateral inguinal hernia repair, follow-up exam (Primary Dx) 09/17/2024 10:00 AM EDT Office Visit [address] [phone] Umesh Lora, DO Non-recurrent bilateral inguinal hernia without obstruction or gangrene (Primary Dx); S/P bilateral inguinal hernia repair, follow-up exam 09/04/2024 10:01 AM EST Anesthesia Event [facility] OR [address] [place] [phone] [facility] [place] MD Hall, Morriana, ANNIA 09/04/2024 9:30 AM EST - 09/04/2024 12:00 PM EST Surgery [facility] OR [address] [place] [phone] Umesh Lora, DO DAVINCI BILATERAL INGUINAL HERNIA REPAIR WITH MESH [[id number] (CPT??)] 09/04/2024 7:53 AM EST - 09/04/2024 2:35 PM EST Hospital Encounter [facility] OR [address] [place] [phone] White, Umesh D, DO Discharge Disposition: Home or Self Care from Last 3 Months Surgical History Surgery [...] Sign Reading Time Taken Comments Blood Pressure 145/82 10/20/2024 10:42 AM EDT Pulse 54 10/20/2024 10:42 AM EDT Temperature 36.7 ??C (98 ??F) 09/04/2024 1:23 PM EST Respiratory Rate 18 09/04/2024 1:23 PM EST Oxygen Saturation 98% 09/04/2024 1:23 PM EST Inhaled Oxygen Concentration - - Weight 116 kg (255 lb) 10/20/2024 10:42 AM EDT Height 198.1 cm (6' 6 ) 10/20/2024 10:42 AM EDT Body Mass Index 29.47 10/20/2024 10:42 AM EDT Plan of Treatment Upcoming Encounters Date Type Department Care Team (Late st Contact Info) Description 12/10/2024 8:30 AM EDT Appointment [facility] CT Scan [address] [place] [address] Health Maintenance Due Date Last Done Comments [...] this topic Medical Devices Implanted Type Area Elementary Tutor Device Identifier Shelf Expiration Date Model / Serial / Lot Mesh Surg 3d Left Xlg 6.7x4.8 - Sna - [id number] Implanted:Qty: 1 on 09/04/2024 by Umesh Lora, DO at [facility] Surgical Mesh Sling Implants Left: Abdomen CR BARD - DAVOL DIV [id number] 09/26/2028 [id number] / NA / [id number] Mesh Surg 3d Right Xlg 6.7x4.8 - Sna - [id number] Implanted:Qty: 1 on 09/04/2024 by Umesh Lora DO at [facility] Surgical Mesh Sling Implants Right: Abdomen CR BARD - BRITTANY DIV [id number] 07/29/2028 [id number] / NA / [id number] Procedures Procedure Name Priority Date/Time Associated Diagnosis [...] and Staff Patient location during procedure: OR Resident/SUPERVISOR PATCHING: ANNIA Correa Performed by: ANNIA Correa Authorized [...] GEMUSE QTc 444 ms GEMUSE P Wave [place] 28 degrees GEMUSE R [place] -15 degrees GEMUSE T [place] 29 degrees GEMUSE ECG Interpretation Normal sinus [...] currently active code status orders. Care Teams Emergency Vehicle Driver Relationship Specialty Start Date End Date Frances Sosa PA [address] [place] [phone] PCP - General Physician Medical Records Technician 09/04/24
--- OUTSIDE RECORDS SUMMARY | 2024-11-20 11:34 | XMS_ITS | Clinical Summary ---
Author Organization [email or web address] Address [address] [facility] 7t [place] [address] Care Team Providers Care Geographic Information System Surveyor Name Role Phone Unavailable Primary Care Provider [...] Vaccines (1 of 2) 2009 COVID-19 Vaccine ( - 2023-2 5 season) 2024 06/27/2022, 07/25/2021 [...] age to complete this topic Insurance MEDICARE [facility] FULL MEDICARE Member Subscriber Plan / Payer (Ef fective 2023-Present) Name:MontalvoDarin Member ID:[id number] Relation to Subscriber:Self Name:Darin Montalvo Vel Subscriber ID:[id number] Payer ID:STATE Group ID:Not on file Type:Medicare Address: [facility].[address] [address] [facility] FULL
== END 2024-11-20 11:06 | disposition home or self-care (01) ==
LOC: HO.PMC 10:52
PROVIDERS: PCP Internal Medicine; Visit Provider Nurse Practitioner Family
DX: Z79.891 Long term (current) use of opiate analgesic (principal); G89.4 Chronic pain syndrome; M47.816 Spondylosis without myelopathy or radiculopathy, lumbar region; M17.0 Bilateral primary osteoarthritis of knee; M51.369 Other intervertebral disc degeneration, lumbar region without mention of lumbar back pain or lower extremity pain; M47.812 Spondylosis without myelopathy or radiculopathy, cervical region
CPT/HCPCS: 99214; G2211

== ENCOUNTER → 2024-11-20 10:51 | Outpatient (BNVA) | payer MEDICARE, MEDICAID, SELFPAY | PROVIDERS: PCP Internal Medicine; Visit Provider Nurse Practitioner Family | DX: Z51.81 Encounter for therapeutic drug level monitoring (principal); M47.816 Spondylosis without myelopathy or radiculopathy, lumbar region; M17.0 Bilateral primary osteoarthritis of knee; M51.360 Other intervertebral disc degeneration, lumbar region with discogenic back pain only; M47.812 Spondylosis without myelopathy or radiculopathy, cervical region; G89.4 Chronic pain syndrome; Z79.891 Long term (current) use of opiate analgesic | CPT/HCPCS: 99212 ==

== ENCOUNTER 2024-12-18 09:22 | Outpatient (AMB) | payer MEDICARE, MEDICAID, SELFPAY ==
--- NOTE | 2024-12-18 09:25 | A.OFFVIS_ITS ---
Vital Signs 12/18/24 09:32 Height 6 ft 3 in Weight 249 lb BMI 31.1 BP 137/88 Blood Pressure Location Lt brachial Position Sitting Pulse 75 Pulse Source Pulse Oximeter Pulse Oximetry (%) 98 Oxygen Delivery Method Room Air Intake Visit Reasons: Pill Count Intake Note: Darin comes in today for a pill count to oxycodone, patient should have 69 tablets and presents with 82 tablets which he last took today 12/18/24 8:30 am. Pain today 8/10 Conformal Pad Former Required: No Accompanied by: Self / Same As Patient Allergies No Known Allergies Allergy (Verified 12/18/24 09:33) HPI Comments Details: Darin presents today for his pill count. He is supposed to have #69 pills in his possession and has #82. This demonstrates a responsible attitude in regards to the opioid regimen. He has chronic neck, lower back and knee pain, rating current pain levels at 8/10. He reports right elbow pain with tenderness and swelling, which he bumped approximately three weeks ago. He was seen by his PCP for this with continued observation. He reports increasing swelling and bulging and plan to see [facility] for this. He has not applied any compression, ice application or taken anti-inflammatory medications like ibuprofen, which were suggested to help reduce the swelling. Denies any fever, chills, cough, malaise, warmth, sedation, nausea, dizziness, urinary retention, instability, weakness, bladder or bowel dysfunction or saddle anesthesia. Past Procedures: 11/29/23: Left knee Durolane injection-30% pain relief 09/06/23: Right knee Durolane injection-100% pain relief [facility] Medical History Closed fracture of left distal fibula Cervicalgia Bilateral knee pain Chronic right hip pain Seasonal allergies Cervical spondylosis Degeneration of intervertebral disc of lumbar region Lumbar spinal stenosis Insomnia Depression with anxiety Surgical History H/O colonoscopy H/O right inguinal hernia repair Social History Alcohol intake: former Patient Tobacco Use Status: Former Tobacco user Current occupational status: retired Review of Systems Const All systems reviewed & are unremarkable except as noted in HPI and below Physical Exam Vital Signs: Last Vital Signs Pulse 75 12/18/24 09:32 BP 137/88 12/18/24 09:32 Pulse Ox 98 12/18/24 09:32 Oxygen Delivery Method Room Air 12/18/24 09:32 BMI result Body Mass Index 31.1 On exam today: Appears afebrile. Alert and oriented. Mood and affect appropriate. Follows and participates in conversation appropriately. Respiratory effort is unlabored. No cough. Able to transition from sit to stand unassisted. Ambulates with bilaterally normal heel strike and toe off. Able to stand and walk on toes and heels. Extrem General: Yes capillary refill normal, Yes no clubbing, cyanosis or edema and Yes no calf tenderness Right upper extremity: elbow/forearm Details: tenderness Location: of the olecranon, swelling Location: of the olecranon, normal ROM, ecchymosis (mild) and distal pulses intact; no unusual warmth, no abrasions and no lacerations Psych Appearance: grossly normal and well kempt Mental Status: mental status grossly normal Speech and movement: Normal speech and movement present and Clear speech present Affect: normal affect Attitude: cooperative Thought process: Normal thought process present Thought content: Normal thought content present, suicidality (none), no hallucinations and No Depressive thoughts present Insight: Good insight present (Psych) Judgement: Good judgement present (Psych) Assessment & Plan Assessment & Plan (1) Olecranon bursitis of right elbow: Code(s): M70.21 - Olecranon bursitis, right elbow Category: Medical (2) Opioid contract exists: Code(s): Z79.891 - correction (current) use of opiate analgesic Category: Medical (3) Chronic pain syndrome: Code(s): G89.4 - Chronic pain syndrome Category: Medical (4) Lumbar spondylosis: Code(s): M47.816 - Spondylosis without myelopathy or radiculopathy, lumbar region Category: Medical (5) Bilateral primary osteoarthritis of knee: Code(s): M17.0 - Bilateral primary osteoarthritis of knee Category: Medical (6) Degeneration of intervertebral disc of lumbar region: Code(s): M51.36 - Other intervertebral disc degeneration, lumbar region Category: Medical (7) Cervical spondylosis: Code(s): M47.812 - Spondylosis without myelopathy or radiculopathy, cervical region Category: Medical Plan Patient has shown accountability for his medication regimen and the pill count was accurate. The patient reported no noted side effects. There is no evidence of misuse, abuse or diversion at this time. MassPAT reviewed and consistent with patient's history. No adverse effects necessitate changes in the pain regimen, and use of adjunctive cannabis preparations seems beneficial. Script for oxycodone 5 mg TID prn sent with advanced date of 01/12/25. Patient has Narcan at home. Encouraged daily physical activity, adequate hydration, dietary fiber, weight optimization, and well balanced diet. For the right elbow bursitis, the patient is advised to apply gentle compression, ice pack, avoid leaning on right elbow and consider taking anti-inflammatory medications such as ibuprofen or naproxen to reduce swelling. Patient is planning to follow up with [facility] for this. All questions were answered and patient is in agreement of plan. Follow up in 4- 5 weeks for pill count and sooner if needed. Patient was informed and verbally consented to the use of an ambient scribe for clinic note documentation during this visit. Medications: Refilled oxycodone Partial Fill upon patient request. 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
[2024-12-18 09:32] VITALS: BP 137/88; PULSE 75; O2SAT 98; BMI 31.1
--- OUTSIDE RECORDS SUMMARY | 2024-12-18 10:04 | XMS_ITS | Clinical Summary ---
Author Organization [employer] Address [address] [facility] 7[address] [place] [address] Care Team Providers Care Channel Supervisor Name Role Phone Unavailable Primary Care Provider [...] - 2023-2 5 season) 2024 06/27/2022, 07/25/2021 DTaP/Tdap/Td Vaccines (1 - Tdap) 05/21/2024 05/20/2024 Depression Screening 12/31/2024 01/01/2024, 01/01/2024 Influenza Vaccine (Season Ended) 2025 06/27/2022, 07/25/2021 RSV Patients and Patients Aged 60 years [...] age to complete this topic Insurance MEDICARE [facility] FULL MEDICARE Member Subscriber Plan / Payer (Ef fective 2023-Present) Name:MontalvoDarin Member ID:[id number] Relation to Subscriber:Self Name:Darin Montalvo Vel Subscriber ID:[id number] Payer ID:STATE Group ID:Not on file Type:Medicare Address: [facility].[address] [address] [facility] FULL
== END 2024-12-18 09:36 | disposition home or self-care (01) ==
LOC: HO.PMC 09:23
PROVIDERS: PCP Internal Medicine; Visit Provider Nurse Practitioner Family
DX: M70.21 Olecranon bursitis, right elbow (principal); Z79.891 Long term (current) use of opiate analgesic; G89.4 Chronic pain syndrome; M47.816 Spondylosis without myelopathy or radiculopathy, lumbar region; M17.0 Bilateral primary osteoarthritis of knee; M51.369 Other intervertebral disc degeneration, lumbar region without mention of lumbar back pain or lower extremity pain; M47.812 Spondylosis without myelopathy or radiculopathy, cervical region
CPT/HCPCS: 99214; G2211

== ENCOUNTER → 2024-12-18 09:22 | Outpatient (BNVA) | payer MEDICARE, MEDICAID, SELFPAY | PROVIDERS: PCP Internal Medicine; Visit Provider Nurse Practitioner Family | DX: Z51.81 Encounter for therapeutic drug level monitoring (principal); M70.21 Olecranon bursitis, right elbow; M47.816 Spondylosis without myelopathy or radiculopathy, lumbar region; M17.0 Bilateral primary osteoarthritis of knee; M51.360 Other intervertebral disc degeneration, lumbar region with discogenic back pain only; M47.812 Spondylosis without myelopathy or radiculopathy, cervical region; G89.4 Chronic pain syndrome; Z79.891 Long term (current) use of opiate analgesic | CPT/HCPCS: 99212 ==

== ENCOUNTER 2025-01-23 08:27 | Outpatient (AMB) | payer MEDICARE, MEDICAID, SELFPAY ==
--- NOTE | 2025-01-23 08:30 | A.OFFVIS_ITS ---
Vital Signs 01/23/25 08:54 Height 6 ft 3 in Weight 244 lb 2 oz BMI 30.5 BP 164/78 H Blood Pressure Location Lt brachial Position Sitting Pulse 66 Pulse Source Pulse Oximeter Pulse Oximetry (%) 97 Oxygen Delivery Method Room Air Intake Visit Reasons: Pill Count/ random UDS Intake Note: Darin comes in today for a pill count to oxycodone, patient should have 66 tablets and presents with 40 tablets which he states he last took today 01/23/25 at 8 am. Pain today 8/10. Unfortunately patient is 26 tablets short (8.5 days), this will result in a suspension from the opioid program. Patient states that he does have a lot of tablets at home and he keep them out of the bottle so he does not have too many so they will not be taken away . States that he counted out how many tablets he should have from the date on the bottle. This was incorrect due to the date on the bottle was different from when the patient actually picked up the medication. Patient will be suspended for 1 year. Patient will go for a random UDS today, aware that he will need to go to the lab on the first floor of this building today 01/23/25 before 12pm. Box Toe Cementer Required: No Accompanied by: Self / Same As Patient Allergies No Known Allergies Allergy (Verified 01/23/25 08:31) HPI Comments Details: Darin presents today for his pill count. He is supposed to have #66 pills in his possession and has #40. Unfortunately, this demonstrates an irresponsible attitude towards his medication regimen. Her prescription is for three pills per day, therefore he is short over 8.5 days. The patient expressed confusion about the pill count process, noting discrepancies between the pickup date and the prescription date. He also mentioned taking pills out from original container for vacations, which may have contributed to the count discrepancy. He has chronic neck, lower back and knee pain, rating current pain levels at 8/10. Patient was upset about suspension from the opioid program but at the same time reported the medication nor injections really provide adequate pain relief. He reports use of adjunctive cannabis preparations as beneficial. Past Procedures: 11/29/23: Left knee Durolane injection-30% pain relief 09/06/23: Right knee Durolane injection-100% pain relief [facility] Medical History Closed fracture of left distal fibula Cervicalgia Bilateral knee pain Chronic right hip pain Seasonal allergies Cervical spondylosis Degeneration of intervertebral disc of lumbar region Lumbar spinal stenosis Insomnia Depression with anxiety Surgical History H/O colonoscopy H/O right inguinal hernia repair Social History Alcohol intake: former Patient Tobacco Use Status: Former Tobacco user Current occupational status: retired Review of Systems Const All systems reviewed & are unremarkable except as noted in HPI and below Physical Exam On exam today: Appears afebrile. Alert and oriented. Mood and affect appropriate. Follows and participates in conversation appropriately. Respiratory effort is unlabored. No cough. Able to transition from sit to stand unassisted. Ambulates with bilaterally normal heel strike and toe off. Able to stand and walk on toes and heels. Psych Appearance: grossly normal Mental Status: mental status grossly normal Speech and movement: Normal speech and movement present and Clear speech present Affect: normal affect, Hostile affect present and Indifferent affect present Attitude: cooperative Thought process: Normal thought process present Thought content: Normal thought content present, suicidality (none), no hallucinations and No Depressive thoughts present Insight: Good insight present (Psych) Judgement: Good judgement present (Psych) Results Reviewed Results Reviewed: No imaging results are available for review. Assessment & Plan Assessment & Plan (1) Opioid contract exists: Code(s): Z79.891 - [facility] (current) use of opiate analgesic Category: Medical (2) Chronic pain syndrome: Code(s): G89.4 - Chronic pain syndrome Category: Medical (3) Lumbar spondylosis: Code(s): M47.816 - Spondylosis without myelopathy or radiculopathy, lumbar region Category: Medical (4) Bilateral primary osteoarthritis of knee: Code(s): M17.0 - Bilateral primary osteoarthritis of knee Category: Medical (5) Degeneration of intervertebral disc of lumbar region: Code(s): M51.36 - Other intervertebral disc degeneration, lumbar region Category: Medical (6) Cervical spondylosis: Code(s): M47.812 - Spondylosis without myelopathy or radiculopathy, cervical region Category: Medical Plan Unfortunately, the patient?s pill count was inaccurate for oxycodone, which will result in a suspension. Given his risk is moderate, he will be suspended from the opioid program for one year. Patient is aware that he will not be eligible for medical management through this office but he can receive interventional treatments for his back and knee pain as needed. Patient has expressed frustration with the guidelines and opioid contract but unfortunately his pill count was short for 8.5 days. I will send in a compassionate prescription for two weeks for oxycodone in which he will need to taper himself off or follow up with PCP for opioid prescribing for one year. All questions were answered and patient is in agreement of plan. Follow up as needed. Patient was informed and verbally consented to the use of an ambient scribe for clinic note documentation during this visit. Medications: Changed From oxycodone Partial Fill upon patient request. 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 Please use this prescription to taper off medication, 2 weeks compassionate prescription. 5 mg PO TID PRN 42 tabs 0RF pain (scale score 7-10) 2 weeks M17.0 - Bilateral primary osteoarthritis of knee, M47.812 - Spondylosis without myelopathy or radiculopathy, cervical region, M47.816 - Spondylosis without myelopathy or radiculopathy, lumbar region, Z79.891 - [facility] (current) use of opiate analgesic Coding Level of Care Code Est Pt Level 4 (39519) Complex EM visit Add On G2211 Diagnoses Opioid contract exists Z79.891 Chronic pain syndrome G89.4 Lumbar spondylosis M47.816 Bilateral primary osteoarthritis of knee M17.0 Degeneration of intervertebral disc of lumbar region M51.36 Cervical spondylosis M47.812
--- OUTSIDE RECORDS SUMMARY | 2025-01-23 08:38 | XMS_ITS | Clinical Summary ---
Author Organization 175 [facility] Address [address] [place] [address] Phone Care Team Providers Care Provider Enrollment Specialist Name Role Phone Frances Sosa Primary Care Provider Allergies No known active allergies Medications FLUoxetine [...] Type Department Care Team Description 11/07/2024 Telephone General Surgery - [address] [place] [address] Umesh Lora, DO Forms/questionnaires from Last 3 Months Surgical History Surgery [...] 54 10/20/2024 10:42 AM EDT Temperature 36.7 C (98 F) 09/04/2024 1:23 PM EST Respiratory Rate 18 09/04/2024 1:23 PM EST Oxygen Saturation 98% 09/04/2024 1:23 PM EST Inhaled Oxygen Concentration - - Weight 116 kg (255 lb) 10/20/2024 10:42 AM EDT Height 198.1 cm (6' 6 ) 10/20/2024 10:42 AM EDT Body Mass Index 29.47 10/20/2024 10:42 AM EDT Plan of Treatment Health Maintenance Due [...] 5 season) 2024 06/27/2022, 07/25/2021 Depression Screening 07/02/2024 Influenza Vaccine (#1) 2025 , 07/25/2021 Falls Risk Assessment 09/04/2025 09/04/2024 DTaP,Tdap,and [...] this topic Medical Devices Implanted Type Area Custom Shoe Designer And Maker Device Identifier Shelf Expiration Date Model / Serial / Lot Mesh Surg 3d Left Xlg 6.7x4.8 - Sna - [id number] Implanted:Qty: 1 on 09/04/2024 by Umesh Lora, DO at [facility] Surgical Mesh Sling Implants Left: Abdomen CR BARD - DAVOL DIV [id number] 09/26/2028 [id number] / NA / [id number] Mesh Surg 3d Right Xlg 6.7x4.8 - Sna - [id number] Implanted:Qty: 1 on 09/04/2024 by Umesh Lora, DO at [facility] Surgical Mesh Sling Implants Right: Abdomen CR BARD - DAVOL DIV [id number] 07/29/2028 [id number] / NA / [id number] Insurance MEDICAID - [place] MEDICARE Advance Directives [...] currently active code status orders. Care Teams Provider Enrollment Specialist Relationship Specialty Start Date End Date Frances Sosa PA [address] [facility] [address] [place] [address] PCP - General Physician Legal Practice Manager 09/04/24
--- OUTSIDE RECORDS SUMMARY | 2025-01-23 08:38 | XMS_ITS | Clinical Summary ---
Author Organization [employer] Address [address] [facility] 7[address] [place] [address] Care Team Providers Care Primer Charger Name Role Phone Unavailable Primary Care Provider [...] Depression Screening 12/31/2024 01/01/2024, 01/01/2024 Influenza Vaccine (#1) 2025 2, 07/25/2021 RSV Patients and Patients Aged 60 [...] age to complete this topic Insurance [place] [address] [place] [phone] [facility] FULL MEDICARE [facility] FULL
--- OUTSIDE RECORDS SUMMARY | 2025-01-23 08:38 | XMS_ITS | Clinical Summary ---
Author Organization [facility] Address [address] [address] Phone Care Team Providers Care Tobacco Roller Name Role Phone Frances Sosa Primary Care Provider Allergies No known active allergies Medications alfuzosin (UROXATRAL) 10 mg 24 hr tablet Take 10 mg by mouth daily. Active amLODIPine (NORVASC) 2.5 MG tablet Take 1 tablet by mouth every morning. 4 Active finasteride (PROSCAR) 5 mg tablet Take 5 mg by mouth nightly at bedtime. 4 Active fluticasone propionate (FLONASE) 50 mcg/actuation nasal spray ADMINISTER 2 SPRAYS TO EACH NOSTRIL ONCE DAILY 4 Active ibuprofen (ADVIL,MOTRIN) 200 MG tablet Active loratadine (CLARITIN) 10 mg tablet Take 1 tablet by mouth every morning. 4 Active oxyCODONE 5 MG immediate release tablet TAKE ONE TABLET BY MOUTH THREE TIMES A DAY NEEDED FOR PAIN SCALE SCORE 7-10) X 30 DAYS 4 Active tiZANidine (ZANAFLEX) 4 MG tablet TAKE ONE TABLET BY MOUTH EVERY 6 TO 8 HOURS NEEDED FOR SPASMS 4 Active traZODone (DESYREL) 50 MG tablet TAKE ONE TO TWO AND ONE-HALF TABLETS BY MOUTH AT BEDTIME NEEDED 4 Active Active Problems No known active problems Social History Tobacco Use Types Packs/Day Years Used Date Smoking Tobacco: Former Cigarettes Smokeless Tobacco: Never Tobacco Cessation:Counseling Given: Not Answered Education Answer Date Recorded Are you interested in more education? Not on glenny e 10/27/2022 Are you concerned about learning? Not on file 10/27/2022 No 10/27/2022 No 10/27/2022 Digital Access Answer Date Recorded No 11/25/2022 No 11/25/2022 Reliable internet access at home? Not on file 11/25/2022 Device with a working camera? Not on file Sex and Gender Information Value Date Recorded Sex Assigned at Not on file Legal Sex Male 9:49 PM EDT Gender Identity Not on file Sexual Orientation Not on file Last Filed Vital Signs Vital Sign Reading Time Taken Comments Blood Pressure 140/79 05/16/2024 10:48 AM EST Pulse 60 05/16/2024 10:48 AM EST Temperature 36.5 C (97.7 F) 05/16/2024 10:48 AM EST Respiratory Rate 16 05/16/2024 10:48 AM EST Oxygen Saturation 97% 05/16/2024 10:48 AM EST Inhaled Oxygen Concentration - - Weight 113.4 kg (250 lb) 05/16/2024 10:48 AM EST Height 198.1 cm (6' 6 ) 05/16/2024 10:48 AM EST Body Mass Index 28.89 05/16/2024 10:48 AM EST Plan of Treatment Health Maintenance Due Date Last Done Comments Adult Td,Tdap Booster 1959 LIPID PANEL 1959 DEPRESSION SCREENING 1971 SMOKING Hx and SMOKELESS TOBACCO SCREENING 1972 HEPATITIS C SCREENING 1977 HIV ONE-TIME SCREENING (18-6 5 YEARS) 1977 SCREENING FOR DIABETES 1994 COLOGUARD 2004 COLONOSCOPY 2004 COLORECTAL CANCER SCREENING 2004 FIT TEST 2004 FOBT 2004 SIGMOIDOSCOPY 2004 VIRTUAL COLONOSCOPY 2004 PNEUMOCOCCAL VACCINES (50+ years) (1 of 1 - PCV) 2009 ZOSTER VACCINES (1 of 2) 2009 COVID-19 VACCINE (3 - 2023-2 5 season) 2024 06/27/2022, 07/25/2021 ABDOMINAL AORTIC ANEURYSM (AAA) SCREENING 2024 RSV VACCINE (1 - 1-dose 75+ series) 2034 HEPATITIS A VACCINES Aged Out No long er eligible based on patient's age to complete this topic HIB VACCINES Aged Out No longer eligi ble based on patient's age to complete this topic MENINGOCOCCAL VACCINES (ACWY) Aged Out No longer eligible based on patient's age to complete this topic MENINGOCOCCAL VACCINES (B) Aged Out N o longer eligible based on patient's age to complete this topic Medical Devices Not on file Insurance MEDICARE PART A & B HEALTH MEDICARE PART A & [place] Member Subscriber Plan / Payer (Ef fective 2008-Present) Name:Darin Montalvo Member ID:[id number] Relation to Subscriber:Self Name:Darin Montalvo Subscriber ID:[id number] Payer ID:[id number] Group ID:Not on file Type:Medicare Address: [employer] [address] [place] MED[place] PART A & B HEALTH MEDICARE PART A & B Member Subscriber Plan / Payer (Ef fective 2008-) Name:Darin Montalvo Member ID:[id number] Relation to Subscriber:Self Name:Darin Montalvo Subscriber ID:[id number] Payer ID:[id number] Group ID:Not on file Type:Medicare Address: [employer] [address] [place] PART A & B [facility] Care Teams Tobacco Roller Relationship Specialty Start Date End Date Frances Sosa PA [address] [facility] [address] [place] [id number] PCP - General Licensed Massage Practitioner 07/20/20 Additional Source Comments The information contained in this document represents components of the legal health record. It is not the complete legal health record.[facility]
[2025-01-23 08:54] VITALS: BP 164/78; PULSE 66; O2SAT 97; BMI 30.5
== END 2025-01-23 08:56 | disposition home or self-care (01) ==
LOC: HO.PMC 08:27
PROVIDERS: PCP Internal Medicine; Visit Provider Nurse Practitioner Family
DX: Z79.891 Long term (current) use of opiate analgesic (principal); G89.4 Chronic pain syndrome; M47.816 Spondylosis without myelopathy or radiculopathy, lumbar region; M17.0 Bilateral primary osteoarthritis of knee; M51.369 Other intervertebral disc degeneration, lumbar region without mention of lumbar back pain or lower extremity pain; M47.812 Spondylosis without myelopathy or radiculopathy, cervical region
CPT/HCPCS: 99214; G2211

== ENCOUNTER → 2025-01-23 08:27 | Outpatient (BNVA) | payer MEDICARE, MEDICAID, SELFPAY | PROVIDERS: PCP Internal Medicine; Visit Provider Nurse Practitioner Family | DX: Z51.81 Encounter for therapeutic drug level monitoring (principal); M17.0 Bilateral primary osteoarthritis of knee; M47.816 Spondylosis without myelopathy or radiculopathy, lumbar region; M51.360 Other intervertebral disc degeneration, lumbar region with discogenic back pain only; M47.812 Spondylosis without myelopathy or radiculopathy, cervical region; G89.4 Chronic pain syndrome; Z79.891 Long term (current) use of opiate analgesic | CPT/HCPCS: 99212 ==